=== PATIENT | female | born 1940 | race Caucasian/White ===

== ENCOUNTER → 2017-07-18 18:17 | Outpatient (CLI) | payer OTHER, SELFPAY ==
--- NOTE | 2017-07-18 18:22 | US_ITS ---
STUDY: ULTRASOUND OF THE FEMALE PELVIS - COMPLETE REASON FOR EXAM: Female, 77 years old. Post-menopausal bleeding LMP: TECHNIQUE: Transabdominal TECHNICAL QUALITY: Adequate. COMPARISON: None. FINDINGS: The uterus is anteverted and is in a midline position. The uterus measures 5.3 x 4 x 1.9 cm. Normal uterine cervix. The endometrium measures 2.9 mm in thickness, and is . There is no demonstrated endometrial mass. There is no demonstrated myometrial mass. I.U.D. - The patient does not have an I.U.D. The right ovary is non-visualized. The left ovary is non-visualized. There is no fluid in the cul-de-sac. US/Pelvic (Non ) IMPRESSION: Normal female pelvis. Ovaries are nonvisualized. Electronically Signed: Tres Rose MD at 22:58 EST , Service support ,
== END ==
PROVIDERS: Family Provider Internal Medicine; PCP Internal Medicine; Visit Provider Obstetrics & Gynecology
DX: N95.0 Postmenopausal bleeding (principal)
CPT/HCPCS: 76856

== ENCOUNTER → 2017-07-22 13:57 | Outpatient (CLI) | payer OTHER, SELFPAY ==
--- NOTE | 2017-07-22 | CYSPIN_PTH ---
PATIENT: GHANSHYAM RIVERA LOC: [facility] U#:[id number] AGE/SX: 85/F ROOM: RE07/22/[address]: Dr. Shira An MD : 1940 BED: DIS: SPEC #: [id number] RECD: 07/22/17 14:54 STATUS: JULES NELSON #: [id number] BASIL: 07/22/17 00:[address]: Shira An DEPT: CYTOLOGY RECD BY: Shai Villalobos Tissues: Urine Procedures: Pap Stain (control) Special Stain Group II Cytospin Fluid HEADER OPERATION: Not noted PRE-OP DIAGNOSIS: TISSUE SUBMITTED: Urine for cytology DIAGNOSIS CYTOLOGY Urine for cytology (cytospin): Negative for malignant cells. AM:ferny 07/23/17 COMMENT The specimen primarily contains squamous epithelial cells. Clinical correlation is suggested. CYTOLOGY STUDY Slides are reviewed. CYTOLOGY GROSS Received is 35 ml of light yellow fluid labeled with the patient's name and and designated per the requisition as urine. Submitted for cytology preparation. 07/22/17 TC:5 CPT: 69490
[2017-07-22 14:01] LABS: Bacteria 0 SEEN /hpf (None Seen); Cytology, Body Fluid / CSF SEE PATHOLOGY REPORT; Mucous, Urine 0 SEEN /hpf (<or=2+); Red Blood Cells-Urine 0 SEEN /hpf (0-5)
[2017-07-22 14:21] LABS: Color, Urine Yellow (Yellow); Glucose, Dipstick Normal (Normal); Ketone-Dipstick Negative (Negative); Leukocyte Esterase-Dipstick 100 /ul (Negative); Nitrite-Dipstick Negative (Negative); Occult Blood-Urine 25 /ul (Negative); Protein-Dipstick Negative (Negative); Specific Gravity, Urine 1.015 (1.002-1.030); Urine Bilirubin Dipstick Negative (Negative); Urine Clarity Clear (Clear); Urine Urobilinogen Normal (Normal)
[2017-07-22 14:34] LABS: Squamous Epithelial Cells - UA 0-5 SEEN /hpf (5-10); Transitional Epithelial - Ur 0-5 SEEN /hpf (0-5); White Blood Cells 0-5 SEEN /hpf (0-5)
== END ==
PROVIDERS: Visit Provider Obstetrics & Gynecology
DX: R30.0 Dysuria (principal)
CPT/HCPCS: 81001; 87086; 87088; 88108; 88313

== ENCOUNTER → 2017-10-24 15:02 | Outpatient (CLI) | payer OTHER, SELFPAY ==
[2017-10-27 10:02] LABS: Cancer Antigen 125 10.7 U/mL (0.0-38.1)
== END ==
PROVIDERS: Visit Provider Obstetrics & Gynecology
DX: N95.0 Postmenopausal bleeding (principal); N92.1 Excessive and frequent menstruation with irregular cycle
CPT/HCPCS: 36415; 86304

== ENCOUNTER 2017-11-21 06:59 | Day surgery (SDC) | payer OTHER, SELFPAY ==
[2017-11-17 11:54] LABS: Hematocrit 43.6 % (37-47); Hemoglobin 14.5 g/dl (12.0-15.0); Mean Corp Hgb Conc 33.3 g/gl (32-36); Mean Corpuscular Volume 93.4 fL (81-99); Mean Platelet Vol. 8.9 fl (6.2-12.0); Platelet Count 200 K/mm3 (150-450); RBC Distribution Width CV 13.4 % (11.6-14.6); RBC Distribution Width SD 45.4 fl (35.1-43.9); Red Blood Count 4.67 M/mm3 (4.2-5.4); White Blood Count 5.8 K/mm3 (4.4-11.0)
[2017-11-17 12:01] LABS: Scan Indicated on CBC? Y/N NO
[2017-11-17 12:19] LABS: Partial Thromboplast Time 28.1 Seconds (24.1-36.2)
[2017-11-21] VITALS (8 sets, daily range): BP systolic 90–129; BP diastolic 56–74; PULSE 49–63; RESP 16; TEMP 36.2–36.8; O2SAT 16–97; BMI 52.4
--- NOTE | 2017-11-21 08:25 | ECC_PTH ---
PATIENT: GHANSHYAM RIVERA LOC: [facility] [place] U#:[id number] AGE/SX: 77/F ROOM: RE11/21/[address]: Dr. Shira An MD : 1940 BED: DIS: 11/21/2017 SPEC #: [id number] RECD: 11/21/17 11:14 STATUS: JULES NELSON #: [id number] BASIL: 11/21/17 08:[address]: Shira An DEPT: SURGICAL PATHOLOGY RECD BY: Darrion Escoto ENTERED: 11/21/17 12:04 SP TYPE: [facility] DR: Dr. Vicki Hall DO Tissues: A - Endocervical B - Endometrium, NOS Procedures: Surgery Specimen Level IV HEADER OPERATION: Hysteroscopy, dilation and curettage PRE-OP DIAGNOSIS: Postmenopausal bleeding TISSUE SUBMITTED: A ? Endocervical curettage, B - Endometrium MICROSCOPIC DIAGNOSIS A. Endocervical curettage: Fragments of benign endocervical mucosa with acute and chronic inflammation. See comment. Strips of benign endometrial epithelium. B. Endometrium, dilation and curettage: Strips and superficial fragments of benign endometrial tissue, consistent with atrophic endometrium, blood and mucous. CATALINA:ferny 11/24/17 COMMENT A. A fragment of fibroconnective tissue is noted devoid of any overlying epithelium may represent fragment of benign inflamed polyp. MICROSCOPIC DESCRIPTION Slides are reviewed. GROSS DESCRIPTION A - Received in fixative is one container labeled with the patient's name and designated endocervical curettings. The specimen consists of multiple fragments of hemorrhagic soft tissue that in aggregate measure 2 x 0.5 x 0.1 cm. The specimen is totally submitted in one cassette. B - Received in fixative is one container labeled with the patient's name and designated endometrium. The specimen consists of multiple fragments of hemorrhagic soft tissue that in aggregate measure 1.5 x 0.8 x 0.1 cm. The specimen is totally submitted in one cassette. / CATALINA:ferny 11/21/17 TC:5 CPT: 93720 x2
--- NOTE | 2017-11-21 08:40 | PCM.OPRPT ---
Problem List (1) Postmenopause bleeding Status: Acute (2) Postmenopause bleeding Status: Acute Report of Operation Date of Procedure: 11/21/17 Pre-Operative Diagnosis: Postmenopausal bleeding Post-Operative Diagnosis: Postmenopausal bleeding Surgery/Procedure Performed:: Pelvic exam under anesthesia, pessary removal, fractional D&C and diagnostic hysteroscopy Description of Surgical Findings:: Removal of stone 3. Old brown discharge noted in the vagina and around 3. It appears that the pessary is irritated right side of the bladder near the graft. Endometrium Type of Anesthesia:: Local, MAC Anesthesiologist: Elmer Parnell Special Medications: 10 cc of 1% lidocaine Specimen's removed: Endocervical tissue and endometrial tissue Drains: none Estimated Blood Loss (mL): Minimal Fluids Replaced: lactated ringers Description of Procedure: Patient presented to the OR suite n.p.o. status. Patient underwent a MAC anesthetic and was found to be adequate. She was placed in the dorsal lithotomy position. Timeout had occurred. A weighted speculum was placed into the vagina and the anterior cervix was grasped and elevated 10 cc of 1% lidocaine was placed to the 4 quadrant survey. Uterus sounded approximately 6-7 cm anterior position. Kevorkian curette was used to remove endocervical tissue with pathological evaluation. Continue dilation of the cervix. Hysteroscope placed into the endometrial cavity where scant tissue was noted throughout. This was followed by sharp curettage of the endometrium. The endometrial tissue was then collected and sent away for evaluation. The replacement of the hysteroscope into the endometrial cavity revealed removal of all tissue very scant tissue to even remove upon initial. After removal of the hysteroscope sponge and instrument counts were correct ?2. The patient was awakened in stable condition and taken to recovery room Grafts/Implants Used: None - Complications None - Admit VTE Documentation VTE Present on Admission: No VTE Mechan Device Prophylaxis: SCD's VTE Pharm Prophylaxis ordered?: No Reason prophylaxis not ordered:: Treatment Not Indicated
--- NOTE | 2017-11-21 08:51 | PCM.DC.D&C ---
Discharge Diet: No Restrictions - increase water intake to 100 ounces daily x 72 hours Discharge Activity: Return to Normal Activity, May Shower, May Take a Tub Bath - in 2 weeks. Return to work on:: 11/24/17 May shower in (days): 0 - TODAY May resume sexual activity in: 1 week Weight Bearing Status: Full weight bearing Lifting Restrictions: none Additional Activity Instructions:: Ambulate often throughout the day x one week Call your doctor if your incision/area has: Sudden Increased Bleeding Call your doctor if you observe: Fever of 101 or Higher, Inability to urinate, Inability to have a bowel movement, Using more than one pad per hour Cleanse incision/area with: Soap & Water Allergies/Adverse Reactions: Allergies codeine Adverse Reaction (Verified 11/14/17 13:06) Nausea gluten Adverse Reaction (Verified 11/14/17 13:06) Upset Stomach Medications to take at Discharge Cholecalciferol (Vitamin D3) [Vitamin D3] 5,000 unit PO DAILY 11/14/17 Hydrocodone/Acetaminophen [Vicodin 5-300 mg Tablet] 1 - 2 tablet PO Q4H PRN PRN 11/14/17 Levothyroxine [Synthroid] 75 mcg PO DAILY 11/14/17 RX: Magnesium 250 mg PO DAILY 11/14/17 RX: Vitamin E 400 unit PO DAILY 11/14/17 Ubidecarenone [Coq10] 50 mg PO DAILY 11/14/17 Primary Care Physician: Vicki Hall DO [Primary Care Provider] - Please Follow Up With: Shira An MD When: 2 weeks postop
== END 2017-11-21 10:34 | disposition home or self-care (01) ==
PROVIDERS: Family Provider Internal Medicine; PCP Internal Medicine; Visit Provider Obstetrics & Gynecology
PROC: 0UDB8ZZ Extraction of Endometrium, Via Natural or Artificial Opening Endoscopic (ICD-10-PCS; CPT 58558; principal; 2017-11-21 08:15)
DX: N95.0 Postmenopausal bleeding (principal); E03.9 Hypothyroidism, unspecified; Z85.828 Personal history of other malignant neoplasm of skin; Z79.899 Other long term (current) drug therapy
CPT/HCPCS: 58558; 36415; 85027; 85610; 85730; 86850; 86900; 88305; J7120; J2405

== ENCOUNTER → 2017-12-02 12:31 | Outpatient (CLI) | payer OTHER, SELFPAY ==
--- NOTE | 2017-12-02 12:33 | BI_ITS ---
MAMMOGRAPHY - BILATERAL SCREENING REASON FOR EXAM: Female, 77 years old. Routine annual screening examination. PERTINENT HISTORY: Bilateral breast tenderness. TECHNIQUE: Digital bilateral breast ashwini (3D mammographic acquisition) in the CC and MLO projections. 2-D mediolateral oblique (MLO) and craniocaudad (CC) views of both breasts were obtained. CAD: Full Field Digital Mammography with Computer Added Detection was performed. COMPARISON: Comparison is made with prior examination dated June 01, 2014 and May 23, 2010. FINDINGS: Breast Composition: There are scattered areas of fibroglandular density. There are no dominant masses or suspicious calcifications. There is a 1.3 cm x 1.3 cm well-defined nodule in the retroareolar region of the left breast. This has increased in size slightly as compared to prior study. On prior ultrasound, this was demonstrated to be a cyst. A repeat sonogram of the left breast is recommended. Stable benign-appearing bilateral axillary lymph nodes. No other significant abnormalities are identified. BI/SCREENING MAMM (CAD), BILAT IMPRESSION: Slight increase in size of the retroareolar nodule of the left breast as described. Correlation with ultrasound is recommended. ASSESSMENT CATEGORY: BIRADS Category 0: Incomplete. Need additional imaging evaluation. A letter regarding these results will be sent to the patient by the facility within 30 days. Approximately 10% of breast cancers are not detected by mammography. A normal mammogram should not delay biopsy of a clinically suspicious abnormality. [id number] Electronically Signed: Wayne Gutierres MD at 14:47 EDT Tel [phone], Service support ,
== END ==
PROVIDERS: Family Provider Internal Medicine; PCP Internal Medicine; Visit Provider Internal Medicine
DX: Z12.31 Encounter for screening mammogram for malignant neoplasm of breast (principal)
CPT/HCPCS: 77063; 77067

== ENCOUNTER → 2017-12-09 10:23 | Outpatient (CLI) | payer OTHER, SELFPAY ==
--- NOTE | 2017-12-09 10:25 | US_ITS ---
STUDY: ULTRASOUND BREAST - LEFT REASON FOR EXAM: Female, 77 years old. Abnormal screening mammogram. TECHNIQUE: Axial and longitudinal images of the LEFT breast were performed with a high resolution ultrasound transducer. COMPARISON: Comparison is made with prior mammogram dated December 02, 2017 and prior ultrasound of the left breast dated June 07, 2014. FINDINGS: LEFT Breast: There is a 9 mm x 10 mm x 10 mm cyst at the 12:00 position of the breast at 1 cm from the nipple. US/Breast Limited Unilateral IMPRESSION: The mammographic abnormality corresponds to a 9 mm x 10 mm x 10 mm cyst. Routine mammographic follow-up is recommended. ASSESSMENT CATEGORY: BIRADS Category 2: Benign. A letter regarding these results will be sent to the patient by the facility within 30 days. Electronically Signed: Wayne Gutierres MD at 11:09 EDT Tel [phone], Service support ,
== END ==
PROVIDERS: Family Provider Internal Medicine; PCP Internal Medicine; Visit Provider Internal Medicine
DX: N63.0 Unspecified lump in unspecified breast (principal)
CPT/HCPCS: 76642

== ENCOUNTER → 2018-06-17 11:48 | Outpatient (CLI) | payer OTHER, SELFPAY ==
[2018-06-17 14:31] LABS: CRP 6.25 mg/L (0.0-3.0)
[2018-06-18 20:07] LABS: Endomysial Antibody IgA Negative (Negative)
[2018-06-19 09:30] LABS: Immunoglobulin A 233 mg/dL (64-422); t-Transglutaminase IgA <2 U/mL (0-3)
--- OUTSIDE RECORDS SUMMARY | 2018-08-22 07:51 | XMS RPT_ITS | Continuity of Care Document ---
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) Comments: s/p pessary and sees dr araujo Status: Active BMI 22.0-22.9, adult (Z68.22, V85.1) Status: Active Body mass index (BMI) 23.0-23.9, adult (Z68.23, V85.1) Status: Active Breath shortness (R06.02, 786.05) Comments: with activity-- i think with cough and wheeze could be having gerd and some sob with some reactive airways Status: Active 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 (E06.3, 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) Status: Active Cough (R05, 786.2) Status: Active Deliveries (Parity) Comments: 3 Status: Active Encounter for screening mammogram for breast cancer (Renamed from Encounter for screening mammogram for malignant neoplasm of breast) (Z12.31, V76.12) Status: Active Family history of AAA Status: Active Family history of diabetes mellitus (Z83.3, V18.0) Status: Active Fatigue (R53.83, 780.79) Status: Active GERD (gastroesophageal reflux disease) (K21.9, 530.81) Status: Active Hypercholesterolemia (E78.00, 272.0) Status: Active Hypothyroidism (E03.9, 244.9) Status: Active MALABSORPTION, INTESTINAL 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) Status: Active Neoplasm of uncertain behavior of skin (D48.5, 238.2) Comments: when shaved saw cyst material so pull out entire Status: Active Non-smoker (Z78.9, V49.89) Status: Active Osteoporosis (M81.0, 733.00) Comments: pt refuses to update dexapt refused meds in past Status: Active Other intervertebral disc degeneration, lumbar region (M51.36, 722.52) Status: Active Pregnancies () Comments: 3 Status: Active Pre-operative exam (Renamed from Preop examination) (Z01.818, V72.84) Comments: Dr Araujo Status: Active Prophylactic vaccination against Streptococcus pneumoniae (Z23, V03.82) Status: Active Rectocele, 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, 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) Status: Active Rosacea (L71.9, 695.3) Status: Active Sebaceous Cyst (L72.3, 706.2) Comments: side of neck Status: Active Sinusitis, acute (J01.90, 461.9) Comments: with some vertigo - pt wants to wait it out Status: Active Soft tissue mass (M79.9, 729.90) Status: Active Thyromegaly (E04.9, 240.9) Status: Active 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 Unspecified Diagnosis Status: Active 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, 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 Status: Active Urinary stream slowing (R39.198, 788.62) Status: Active Uterine prolapse (N81.4, 618.1) Status: Active Vertigo (R42, 780.4) Status: Active Vitamin D deficiency, unspecified (E55.9, 268.9) Status: Active Well woman exam with routine gynecological exam (Z01.419, V72.31) Status: Active Medications Name Dates Details CO Q 10, 10MG (Oral Capsule) 1 Capsule Capsule daily for 0 days Quantity: 30 {Capsule} Refills: 0 Ordered:26-Aug-2013 Earnestine Vasquez LPN Start : 31-May-2013 Active Cyclobenzaprine HCl 10 MG Oral Tablet 1 (one) Tablet tid for 0 days Quantity: 30 {Tablet} Refills: 0 Ordered:23-May-2017 Amber Hall DO, DO, Kathleen Start : 23-May-2017 Active Hydrocodone-Acetaminophen 5-325 MG Oral Tablet 1 -2 Tablet Q 4hr/PRN for 0 days Quantity: 30 {Tablet} Refills: 0 Ordered:12-Mar-2018 Amber Hall DO, DO, Kathleen Start : 12-Mar-2018 Active Comments:ddd M81.0 Levothyroxine Sodium 75 MCG Oral Tablet 1 (one) Tablet qd in the am on empty stomach for 0 days Quantity: 30 {Tablet} Refills: 3 Ordered:06-Nov-2017 Amber Hall DO, DO, Kathleen Start : 06-Nov-2017 Active Levothyroxine Sodium 75 MCG Oral Tablet 1 (one) Tablet qd in the am on empty stomach for 90 days Quantity: 90 {Tablet} Refills: 3 Ordered:06-Nov-2017 Amber Hall DO, DO, Kathleen Start : 06-Nov-2017 Active VITAMIN D3, 5000UNIT (Oral Tablet) 1 Tablet Tablet three times weekly for 0 days Quantity: 120 {Tablet} Refills: 0 Ordered:26-Aug-2013 Earnestine Vasquez LPN Start : 31-May-2013 Active BENADRYL, 25MG (Oral Tablet) 1 Tablet q8hrs prn for 0 days Quantity: 30 {Tablet} Refills: 0 Ordered:06-Jun-2014 Earnestine Vasquez LPN Start : 04-Dec-2012 End : 06-Jun-2014 Inactive CELEBREX, 200MG (Oral Capsule) 1 Capsule daily for 5 days Quantity: 15 {Capsule} Refills: 0 Ordered:04-Feb-2008 Orly Holland Start : 04-Feb-2008 End : 04-Feb-2008 Inactive CIPRO, 250MG (Oral Tablet) 1 Tablet bid for 3 days Quantity: 6 {Tablet} Refills: 0 Ordered:08-Feb-2008 Orly Holland Start : 08-Feb-2008 End : 25-Feb-2008 Inactive CLARITIN, 10MG (Oral Tablet) 1 Tablet daily for 7 days Quantity: 7 {Tablet} Refills: 0 Ordered:27-Apr-2013 Jacqui Joyce CNP Start : 04-Dec-2012 End : 11-Dec-2012 Inactive CRESTOR, 5MG (Oral Tablet) 1 Tablet daily for 0 days Quantity: 30 {Tablet} Refills: 6 Ordered:26-Aug-2013 Earnestine Vasquez LPN Start : 31-May-2013 End : 26-Aug-2013 Inactive FISH OIL, 1000MG (Oral Capsule) 1 (one) Capsule daily for 0 days Refills: 0 Ordered:04-Dec-2012 TUCKER Maravilla Start : 30-Aug-2008 End : 04-Dec-2012 Inactive LOVAZA, 1GM (Oral Capsule) 4 Capsule qd for 0 days Quantity: 360 {Capsule} Refills: 3 Ordered:04-Dec-2012 TUCKER Maravilla Start : 23-Jul-2011 End : 04-Dec-2012 Inactive NIASPAN, 1000MG (Oral Tablet Extended Release) 1 (one) Tablet ER daily for 0 days Quantity: 90 {Tablet_ER} Refills: 3 Ordered:19-Jul-2011 Earnestine Vasquez LPN Start : 14-Aug-2009 End : 19-Jul-2011 Inactive NIASPAN, 500MG (Oral Tablet Extended Release) 1 (one) Tablet ER Daily with a meal for 0 days Quantity: 90 {Tablet_ER} Refills: 3 Ordered:20-Nov-2011 Earnestine Vasquez LPN Start : 23-Jul-2011 End : 20-Nov-2011 Inactive NIASPAN, 750MG (Oral Tablet Extended Release) 1 (one) Tablet ER daily at hs for 0 days Quantity: 30 {Tablet_ER} Refills: 10 Ordered:19-Jul-2011 Earnestine Vasquez LPN Start : 30-Aug-2008 End : 19-Jul-2011 Inactive PEPCID, 20MG (Oral Tablet) 1 Tablet bid for 7 days Quantity: 14 {Tablet} Refills: 0 Ordered:27-Apr-2013 Maria Del Carmen PIÑA Melissa Start : 04-Dec-2012 End : 11-Dec-2012 Inactive PROAIR HFA, 108 (90 Base)MCG/ACT (Inhalation Aerosol Solution) 2 (two) Puff(s) tid prn for 0 days Quantity: 1 {Aerosol_Soln} Refills: 0 Ordered:06-Jun-2014 Earnestine Vasquez LPN Start : 04-Dec-2012 End : 06-Jun-2014 Inactive VITAMIN C, 500MG (Oral Tablet) 1 (one) Tablet daily for 0 days Refills: 0 Ordered:20-Nov-2011 Earnestine Vasquez LPN Start : 30-Aug-2008 End : 20-Nov-2011 Inactive VITAMIN D, 2000UNIT (Oral Tablet) 1 (one) Tablet daily for 0 days Quantity: 30 {Tablet} Refills: 0 Ordered:20-Nov-2011 Earnestine Vasquez LPN Start : 16-Nov-2009 End : 20-Nov-2011 Inactive ANTIVERT, 25MG (Oral Tablet) 1 (one) Tablet Q 8 hrPRN for 0 days Quantity: 30 {Tablet} Refills: 0 Ordered:12-Jun-2006 Orly Holland Start : 12-Jun-2006 End : 28-Jan-2008 Discontinued CITRACAL + D, [id number] (Oral Tablet) 1 (one) Tablet daily for 0 days Refills: 0 Ordered:16-Aug-2008 TUCKER Maravilla Start : 16-Aug-2008 End : 04-Dec-2012 Discontinued Comments:This order discontinued per [facility]. LEVOXYL, 50MCG (Oral Tablet) 1 qd (50 MCG) Start : 03-May-2013 End : 03-May-2013 Discontinued Comments:This order discontinued per [facility] LEVOXYL, 50MCG (Oral Tablet) 1 Tablet qd for 0 days Quantity: 90 {Tablet} Refills: 3 Ordered:03-May-2013 Earnestine Vasquez LPN Start : 03-May-2013 End : 03-May-2013 Discontinued Comments:This order discontinued per [facility]. TRIPLE ANTIBIOTIC, 5-400-5000 (External Ointment) Ointment bid for 0 days Refills: 0 Ordered:04-Feb-2008 Orly Holland Start : 04-Feb-2008 End : 25-Feb-2008 Discontinued VICODIN, 5-500MG (Oral Tablet) 1 (one) Tablet q4-6 hrs prn pain for 0 days Quantity: 30 {Tablet} Refills: 0 Ordered:11-Mar-2012 Amber Hall DO, DO, Kathleen Start : 11-Mar-2012 End : 09-Oct-2012 Discontinued Comments:This order discontinued per [facility] VITAMIN D, [id number] (Oral Capsule) 1 (one) Capsule twice weekly for 0 days Quantity: 24 {Capsule} Refills: 0 Ordered:16-Nov-2009 TUCKER Maravilla Start : 14-Jul-2009 End : 04-Dec-2012 Discontinued Comments:This order discontinued per [facility]. Allergies and Adverse Reactions Name Dates Details Codeine/Codeine Derivatives (Allergy) Status: Active Past Medical History Name Dates Details Abnormal EKG (R94.31, 794.31) Status: Inactive as of 18-Jun-2017 Actinic keratosis (L57.0, 702.0) Status: Inactive as of 04-Dec-2012 Benign paroxysmal positional vertigo (H81.10, 386.11) Comments: EXERCISE SHEET GIVEN Status: Inactive as of 16-Nov-2008 Bite, insect (W57.XXXA, 919.4) Status: Inactive as of 26-Aug-2013 Breast screening (Z12.39, V76.10) Status: Inactive as of 18-Jun-2017 CRP elevated (R79.82, 790.95) Status: Inactive as of 18-Jun-2017 Diarrhea (R19.7, 787.91) Status: Inactive as of 13-Aug-2012 Elevated blood-pressure reading without diagnosis of hypertension (R03.0, 796.2) Status: Resolved as of 20-Nov-2011 Encounter for immunization (Z23, V03.89) Status: Inactive as of 04-Dec-2012 Fall due to slipping on ice or snow, initial encounter (W00.9XXA, E885.9) Comments: fine no fx no bruiising noted but clinical evidence of soft tissue injury /soreness Status: Resolved as of 12-Nov-2017 Hematuria (R31.9, 599.70) Status: Resolved as of 28-Jul-2014 Low back pain (M54.5, 724.2) Status: Inactive as of 13-Aug-2012 Need for prophylactic vaccination and inoculation against influenza (Z23, V04.81) Status: Inactive as of 04-Dec-2012 Shoulder joint pain, unspecified laterality (719.41) Comments: resolving Status: Inactive as of 21-Nov-2008 Unspecified Diagnosis Status: Inactive as of 04-Dec-2012 Urinary frequency (R35.0, 788.41) Status: Inactive as of 16-Nov-2008 Vaginal discharge, bloody (N89.8, 623.8) Status: Inactive as of 18-Jun-2017 Wheeze (R06.2, 786.07) Comments: from gerd-- will follow behavior chg 1st prior to any more std proc supplements or rx to treat gerd Status: Inactive as of 28-Nov-2014 Procedures Procedure Dates Details oral sx Completed Comments: 07/19/13 Date Value Details 09-Dec-2017 Breast Limited Unilateral Result: Comments: See Note; NOTES: [facility] Imaging Services [address] [place] [address] Breast Limited Unilateral MR#: [id number] Acct: [id number] Name: CRIS SEAY Rep #: [id number] : 1940 F 77 From: Wayne Juarez MD PCP: Vicki Hall DO Status: REG CLI Study: Breast Limited Unilateral Date of Exam: 12/09/17 Exam# [id number] Ordering Dr: Vicki Hall DO STUDY: ULTRASOUND BREAST - LEFT REASON FOR EXAM: Female, 77 years old. Abnormal screening mammogram. TECHNIQUE: Axial and longitudinal images of the LEFT breast were performed with a high resolution u ltrasound transducer. COMPARISON: Comparison is made with prior mammogram dated December 02, 2017 and prior ultrasound of the left breast dated June 07, 2014. FINDINGS : LEFT Breast: There is a 9 mm x 10 mm x 10 mm cyst at the 12:00 position of the breast at 1 cm from the nipple. US/Breast Limited Unilateral IM PRESSION: The mammographic abnormality corresponds to a 9 mm x 10 mm x 10 mm cyst. Routine mammographic follow-up is recommended. ASSESSMENT CATEGORY: BIRADS Categor y 2: Benign. A letter regarding these results will be sent to the patient by the facility within 30 days. Electronically Signed: Wayne Juarez MD at 11:09 EDT Tel [phone], Service s upport , CC: Vicki Hall DO Aerographer: Signed 02-Dec-2017 SCREENING MAMM (CAD), BILAT Result: Comments: See Note; NOTES: [facility] Imaging Services [address] [place] [address] SCREENING MAMM (CAD), BILAT MR#: [id number] Acct: [id number] Name: CRIS SEAY Rep #: [id number] : 1940 F 77 From: Wayne Juarez MD PCP: Vicki Hall DO Status: REG CLI Study: SCREENING MAMM (CAD), BILAT Date of Exam: 12/02/17 Exam# [id number] Ordering Dr: Vicki Hall MAMMOGRAPHY - BILATERAL SCREENING REASON FOR EXAM: Female, 77 years old. Routine annual screening examination. PERTINENT HISTORY: Bilateral breast tenderness. TECHNIQUE: Digital bilateral breast ashwini (3D mammographic acquisition) in the CC and MLO projections. 2-D mediolateral oblique (MLO) and craniocaudad (CC) views of both breasts were obtained. CAD: Full Field Digital Mammography with Compu ter Added Detection was performed. COMPARISON: Comparison is made with prior examination dated June 01, 2014 and May 23, 2010. FINDINGS: Breast Composition : There are scattered areas of fibroglandular density. There are no dominant masses or suspicious calcifications. There is a 1.3 cm x 1.3 cm well-defined nodule in the retroareolar region of the left b reast. This has increased in size slightly as compared to prior study. On prior ultrasound, this was demonstrated to be a cyst. A repeat sonogram of the left breast is recommended. Stable benign-appeari ng bilateral axillary lymph nodes. No other significant abnormalities are identified. BI/SCREENING MAMM (CAD), BILAT IMPRESSION: Slight increase in size of the retroareolar nodule of the left breast as described. Correlation with ultrasound is recommended. ASSESSMENT CATEGORY: BIRADS Category 0: Incomplete. Need additional imaging evaluation. A letter regarding these results will be sent to the patient by the facility within 30 days. Approximately 10% of breast cancers are not detected by mammography. A normal mammogram should not delay biopsy of a clinically suspicious abnormality. [id number] Electronically Signed: Wayne Juarez MD at 14:47 EDT Tel [phone], Service support [phone], CC: Vicki Hall DO Aerographer: Signed 21-Nov-2017 Discharge Instruction Result: Comments: See Note; NOTES: [facility] Medical Records Department [address] [place] [address] Instructions for Home/Discharge Instructions 11/21/17 0851 MR#: [id number] Acct: [id number] Name: CRIS SEAY Rep #: [id number] : 1940 77 From: Shira Araujo MD PCP: Vicki Hall DO Status: REG [facility] [place] Discharge Diet: No Restrictions - increase water intake to 100 ounces lakisha ly x 72 hours Discharge Activity: Return to Normal Activity, May Shower, May Take a Tub Bath - in 2 weeks. Return to work on:: 11/24/17 May shower in (days): 0 - TODAY May resume sexual activity in: 1 w [place] Weight Bearing Status: Full weight bearing Lifting Restrictions: none Additional Activity Instructions:: Ambulate often throughout the day x one week Call your doctor if your incision/area has: Sudd en Increased Bleeding Call your doctor if you observe: Fever of 101 or Higher, Inability to urinate, Inability to have a bowel movement, Using more than one pad per hour Cleanse incision/area with: Soap AND Water Allergies/Adverse Reactions: Allergies codeine Adverse Reaction (Verified 11/14/17 13:06) Nausea gluten Adverse Reaction (Verified 11/14/17 13:06) Upset Stomach Medications to take at [facility] Cholecalciferol (Vitamin D3) [Vitamin D3] 5,000 unit PO DAILY 11/14/17 Hydrocodone/Acetaminophen [Vicodin 5-300 mg Tablet] 1 - 2 tablet PO Q4H PRN PRN 11/14/17 Levothyroxine [Synthroid] 75 mcg PO DAILY 11/14/17 RX: Magnesium 250 mg PO DAILY 11/14/17 RX: Vitamin E 400 unit PO DAILY 11/14/17 Ubidecarenone [Coq10] 50 mg PO DAILY 11/14/17 Primary Care Physician: Vicki Hall DO [Primary Care Provider] - Please Follow Up With: Shira Araujo MD When: 2 weeks postop 11/21/17 0856 <Electronically signed by Shira Araujo MD> Date Shira Araujo MD CC: Vicki Hall DO 21-Nov-2017 Operative Report Result: Comments: See Note; NOTES: [facility] Medical Records Department [facility] [place] [address] Operative Report 11/21/17 0840 MR#: [id number] Acct: [id number] Name: CRIS SEAY Rep #: [id number] : 1940 77 From: Shira Araujo MD PCP: Vicki Hall DO Status: [facility] Y Location: [facility] [place] Problem List (1) Postmenopause bleeding Status: Acute (2) Postmenopause bleeding St atus: Acute Report of Operation Date of Procedure: 11/21/17 Pre-Operative Diagnosis: Postmenopausal bleeding Post-Operative Diagnosis: Postmenopausal bleeding Surgery/Procedure Performed:: Pelvic exam under anesthesia, pessary removal, fractional D AND C and diagnostic hysteroscopy Description of Surgical Findings:: Removal of stone 3. Old brown discharge noted in the vagina and around 3. It appears that the pessary is irritated right side of the bladder near the graft. Endometrium Type of Anesthesia:: Local, MAC Anesthesiologist: Elmer Parnell Special Medications: 10 cc of 1% lidocaine Specimen' s removed: Endocervical tissue and endometrial tissue Drains: none Estimated Blood Loss (mL): Minimal Fluids Replaced: lactated ringers Description of Procedure: Patient presented to the OR suite n.p.o. status. Patient underwent a MAC anesthetic and was found to be adequate. She was placed in the dorsal lithotomy position. Timeout had occurred. A weighted speculum was placed into the vagina and the an terior cervix was grasped and elevated 10 cc of 1% lidocaine was placed to the 4 quadrant survey. Uterus sounded approximately 6-7 cm anterior position. Kevorkian curette was used to remove endocervical tissue with pathological evaluation. Continue dilation of the cervix. Hysteroscope placed into the endometrial cavity where scant tissue was noted throughout. This was followed by sharp curettage of th e endometrium. The endometrial tissue was then collected and sent away for evaluation. The replacement of the hysteroscope into the endometrial cavity revealed removal of all tissue very scant tissue to even remove upon initial. After removal of the hysteroscope sponge and instrument counts were correct 2. The patient was awakened in stable condition and taken to recovery room Grafts/Implants Used: None - Complications None - Admit VTE Documentation VTE Present on Admission: No VTE Mechan Device Prophylaxis: SCD's VTE Pharm Prophylaxis ordered?: No Reason prophylaxis not ordered:: Treatme nt Not Indicated 11/21/17 0851 <Electronically signed by Shira Araujo MD> Date Shira Araujo MD CC: Shira Araujo MD; Vicki Hall DO Signed 18-Jul-2017 Pelvic (Non ) Result: Comments: See Note; NOTES: [facility] Imaging Services [address] [place] [address] Pelvic (Non ) MR#: [id number] Acct: [id number] Name: CRIS SEAY Rep #: [id number] : 1940 F 77 From: Tres Rose MD PCP: Vicki Hall DO Status: REG CLI Study: Pelvic (Non ) Date of Exam: 07/18/17 Exam# [id number] Ordering Dr: Shira Araujo MD STUDY: ULTRASOUN D OF THE FEMALE PELVIS - COMPLETE REASON FOR EXAM: Female, 77 years old. Post- menopausal bleeding LMP: TECHNIQUE: Transabdominal TECHNICAL QUALITY: Adequate. COMPARISON: None. FINDINGS: The uterus is anteverted and is in a midline position. The uterus measures 5.3 x 4 x 1.9 cm. Normal uterine cervix. The endometrium measures 2.9 mm in thickness, and is . There is no demonstrated endometrial mass. There is no demonstrated myometrial mass. I.U.D. - The patient does not have an I.U.D. The right ovary is non- visualized. The left ovary is non-visualized. There is no fluid in the cul-de-sac. US/Pelvic (Non ) IMPRESSION: Normal female pelvis. Ovaries are nonvisualized. Electronically Signed: Se gabriel Rose MD at 22:58 EST , Service support , CC: Shira Araujo MD; Vicki Hall DO Aerographer: Signed 28-May-2017 Abdomen Limited Result: Comments: See Note; NOTES: [facility] Imaging Services [address] [place] [address] Abdomen Limited MR#: [id number] Acct: [id number] Name: CRIS SEAY Rep #: [id number] : 1940 F 77 From: Wally Easton MD PCP: Vicki Hall DO Status: REG CLI Study: Abdomen Limited Date of Exam: 05/28/17 Exam# [id number] Ordering Dr: Vicki Hall DO STUDY: ABDOMINAL ULTRASOUND -left lateral abdomen REASON FOR VISIT: Female, 77 years old. Palpable lump TECHNIQUE: Ultrasound evaluation of the right upper quadrant was performed with real-time and static garcia-scale imaging. T ECHNICAL QUALITY: Adequate. COMPARISON: None. FINDINGS: Ultrasound evaluation of the subcutaneous tissue, in the area of concern, shows a well-defined isoechoic cat bcutaneous nodule measuring 1.9 x 3.3 x 0.8 cm. This appears to be a lipoma. It is well-defined, there is no vascularity or hyperemia to suspect inflammation. No suspicious cystic mass or architectural distortion. US/Abdomen Limited IMPRESSION: Likely subcutaneous lipoma corresponding to the palpable abnormality. No suspicious sonographic findi ngs Electronically Signed: Osorio Easton MD at 8:47 EST , Service support , CC: Vicki Hall DO Aerographer: Signed 07-Aug-2016 Transvaginal Non- Result: Comments: See Note; NOTES: [facility] Imaging Services [address] [place] [address] Verdana 4d Transvaginal Non- MR#: [id number] Acct: [id number] Name: CRIS SEAY Roni Lynn ep #: [id number] : 1940 F 76 From: Camryn Robison MD PCP: Vicki Hall DO Status: REG CLI Study: Transvaginal Non- Date of Exam: 08/07/16 Exam# [id number] Ordering Dr: Vicki Hall DO STUDY: ULTRASOUND TRANSVAGINAL CLINICAL: Female, 76 years old. bloody discharge with uterine prolapse TECHNIQUE: Transabdominal and Transvaginal COMPARISON: None. FINDINGS: Normal uterine size measuring 3.8 x 2.5 x 1.6 cm in maximal craniocaudal dimension. There are no myometrial masses. Normal endometrial thickness measuring 2.3 mm. There are no endome trial masses, and there is no fluid in the endometrial cavity. Normal uterine cervix. The right ovary is not visualized. Normal left ovary, measuring 1.8 x 1.1 x 1.0 cm. There are multiple follicles without a dominant cyst. There is no free fluid in the pelvis. US/Transvaginal Non- IMPRESSION: There is no abnormal mass in the uterus. Electronically Signed: Camryn Robison MD at 11:00 EST Tel , Service support [phone], CC: Shira Araujo MD; Vicki Hall DO Aerographer: Signed 24-May-2015 EKG (16195) Comments: sinus tiffanie Result: [MEASUREMENTS ANALYSIS] Date of Test: 05/24/2015 11:36:14; Heart Rate: 55; VT Interval: 160; QRS: 90; QT Interval: 446; Corrected QT Interval (QTc): 438; P Wave Reader: 47; QRS Wave Reader: 30; T Wave Reader: 52; Blood Pressure: 115/60 [ECG DIAGNOSTIC STATEMENTS] Date of Test: 05/24/2015 11:36:14; Summary: Sinus Bradycardia WITHIN NORMAL LIMITS 07-Jun-2014 Breast Limited Unilateral Result: Comments: See Note; NOTES: [facility] Imaging Services [address] [place] [address] Ultrasound Report MR#: [id number] Acct: [id number] Name: CRIS SEAY Rep #: [id number] : 1940 F 74 From: Wayne Juarez MD PCP: Vicki Hall DO Status: REG CLI Study: Breast Limited Unilateral Date of Exam: 06/07/14 Exam# [id number] Ordering Dr: Vicki Hall DO STUDY: ULTRASOUND BREAST(S) - LEFT REASON FOR EXAM: Female, 74 years old. Abnormal screening mammogram. TECHNIQUE: Axial and longitudinal images of the LEFT breast were performed with a high re solution ultrasound transducer. COMPARISON: Comparison is made with prior mammogram dated June 01, 2014 and prior breast ultrasound dated May 29, 2010. FINDINGS: LEFT BREAST: There is a 10 mm x 8 mm x 7 mm cyst at the 12:00 position of the breast at 3 cm from the nipple. This corresponds to the mammographic findings. This has increased in size si nce prior study. IMPRESSION: The nodular density represents a cyst. This has increased in size as compared to prior examination. ____ ASSESSMENT CATEGORY: BIRADS Category 2: Benign. A letter regarding these results will be sent to the patient by the facility within 30 days. Electronically Signed: Wayne Juarez MD 16/06/05 at 11:38 EST Tel [phone], Service support [phone], CC: Vicki Hall DO Aerographer: Signed 01-Jun-2014 Bilat Scrijeoma Digital AND CAD Result: Comments: See Note; NOTES: [facility] Imaging Services [address] [place] [address] Breast Imaging Report MR#: [id number] Acct: [id number] Name: CRIS SEAY Rep #: [id number] : 1940 F 74 From: Wayne Juarez MD PCP: Vicki Hall DO Status: [facility] CLI Study: Bilat Scrn Digital AND CAD Date of Exam: 06/01/14 Exam# [id number] Ordering Dr: Mirela Hall DO MAMMOGRAPHY - BILATERAL SCREENING REASON FOR EXAM: Female, 74 years old. Routine annual screening examination. PERTINENT HISTORY: Non- contributory. TECHNIQUE: Digital examination. Mediol ateral oblique (MLO) and craniocaudad (CC) views of both breasts were obtained. CAD: CAD was performed on this study. COMPARISON: Comparison is made with prior study dated May 23, 2010. FINDINGS: Breast Composition: The breasts are almost entirely fatty. There is a 1 cm well-defined nodular density in the superior retroareolar region of the left coc[address] st. This has increased in size. This was demonstrated to be a cyst on prior ultrasound. Sonographic correlation is recommended. No other significant abnormalities are identified. IMPRESSION: Increasing well-defined non-density in the left breast as described. Correlation with ultrasound is recommended. ASSESSMENT CATEG ORY: BIRADS Category 0: Incomplete. Need additional imaging evaluation. A letter regarding these results will be sent to the patient by the facility within 30 days. Approximately 10% of breast canc ers are not detected by mammography. A normal mammogram should not delay biopsy of a clinically suspicious abnormality. Electronically Signed: Wayne Juarez MD at 10:14 EST Tel [phone], Service support [phone], CC: Vicki Hall DO Aerographer: Signed 04-Apr-2014 Spirometry ([id number]) Comments: poor techin overall ok Result: [Preliminary Information] Sensor Calibration Date: 02/15/2014; Sensor SN: [id number]; Pressure: 760; Temperature: 20.1088164343209; Predicteds Used: Crapo [Pre-Bronchodilator] FVC: 2.91662104107141; FEV (0.5 secs): 1.88409804648265; FEV (1.0 sec): 2.33327783936589; FEV (3.0 secs): 2.75938472378463; FEV (6.0 secs): 0.939598956026496; FEV (1.0 sec) / FVC: 91.4521841716759; FEV (3.0 secs) / FVC: 97.378595 5255223; FEV (1.0 sec) / FEV (6.0 secs): 448.714776559257; FEF (25-75%): 3.3266958180369; FEF (75-85%): 1.79199748706021; PEF: 4.68307500465338; FEF (25%): 5.94899678479615; FEF (75%): 2.10121679332643; FEF (200-1200): 4.36074568933363; EXP TIME: 4.86885419320040; Best FVC: 2.48242312490534; Best FEV (1.0 sec): 2.81554783933901; V ext.: 0.218169747388603; FIVC: 2.75525587572312; FIV (0.5 sec): 0.86188 5181382860; FEV (0.5 secs) / FIV (0.5 secs): 341.466087183038; FIF (50%): 1.66162024640992; FEF (50%) / FIF (50%): 236.873490154712; MVV: 0; MTV: 0; RR: 0; MVV Time: 0; VC: 0; ERV: 0; JANEE: 0; TV: 0; AT: 0; AT%: 0 [Post-Bronchodilator] FVC: 0; FEV (0.5 secs): 0; FEV (1.0 sec): 0; FEV (3.0 secs): 0; FEV (6.0 secs): 0; FEV (1.0 sec) / FVC: 0; FEV (3.0 secs) / FVC: 0; FEV (1.0 sec) / FEV (6.0 secs): 0; FE F (25-75%): 0; FEF (75-85%): 0; PEF: 0; FEF (25%): 0; FEF (75%): 0; FEF (200-1200): 0; EXP TIME: 0; Best FVC: 0; Best FEV (1.0 sec): 0; V ext.: 0; FIVC: 0; FIV (0.5 sec): 0; FEV (0.5 secs) / FIV (0.5 se cs): 0; FIF (50%): 0; FEF (50%) / FIF (50%): 0; MVV: 0; MTV: 0; RR: 0; MVV Time: 0; VC: 0; ERV: 0; JANEE: 0; TV: 0; AT: 0; AT%: 0 [Predicted Values] FVC: 2.45935157705523; FEV (0.5 secs): 1.32302105373849 ; FEV (1.0 sec): 2.93494122058469; FEV (3.0 secs): 2.73652470000318; FEV (6.0 secs): 0; FEV (1.0 sec) / FVC: 75.4916571006174; FEV (3.0 secs) / FVC: 91.3535823773075; FEV (1.0 sec) / FEV (6.0 secs): 0; FEF (25-75%): 1.47109499460427; FEF (75-85%): 0; PEF: 5.57032481898424; FEF (25%): 4.49662597726622; FEF (75%): 0.651; FEF (200-1200): 0; EXP TIME: 0; Best FVC: 2.84510272367113; Best FEV (1.0 sec): 2.0 3047150364111; V ext.: 0; FIVC: 2.36347339825836; FIV (0.5 sec): 0; FEV (0.5 secs) / FIV (0.5 secs): 0; FIF (50%): 0; FEF (50%) / FIF (50%): 0; MVV: 82.9890542461405; MTV: 0; RR: 0; MVV Time: 0; VC: 2.7 8023865306117; ERV: 0; JANEE: 0; TV: 0; AT: 0; AT%: 0 [Spirometry Diagnostic Statements] Date of Test: 04/04/2014 08:25:30; Summary: Normal spirometry. Immunization Name Dates Details Influenza (3 years and up) on: 03-Jul-2006 Pneumococcal (2 years and up) on: 17-May-2008 Comments: Lot #[id number]/07/09Site-left deltoidDose0.5mlgiven by Artie Holland LPN Family History Unknown Family Member Name Dates Details Family Members In General Comments: ETOH, Grandmother spinal cancer, prostate CA, Heart/Lung diseaes, HBP, high cholesterol and thyroid disease Status: Active Father Comments: [place], S/P CABG Status: Active Mother Comments: Ruptured aortic aneurysm Status: Active Social History Name Dates Details Caffeine Use Comments: 3 QD Status: Active No Drug Use Status: Active Non Drinker/No Alcohol Use Status: Active Non Smoker/No Tobacco Use Status: Active Tobacco use: Never smoker. Status: Active Smoking Status Name Dates Details Never smoker Vital Signs Date Test Result Details :41 Pulse 67 /min Comments: Pattern: Regular Respiration Rate 18 /min Comments: Pattern: Unlabored O2 SAT 97 % Comments: Room air BP Systolic 130 mm[Hg] Comments: Patient Position: Sitting; Cuff Location: Left Arm; Cuff Size: Standard BP Diastolic 82 mm[Hg] Comments: Patient Position: Sitting; Cuff Location: Left Arm; Cuff Size: Standard Weight 133.5 lb Height 63.25 in Body Mass Index Calculated 23.46 kg/m2 Body Surface Area Calculated 1.63 m2 :39 Pulse 96 /min Comments: Pattern: Regular Respiration Rate 18 /min Comments: Pattern: Unlabored O2 SAT 96 % Comments: Room air BP Systolic 120 mm[Hg] Comments: Patient Position: Sitting; Cuff Location: Left Arm; Cuff Size: Standard BP Diastolic 62 mm[Hg] Comments: Patient Position: Sitting; Cuff Location: Left Arm; Cuff Size: Standard Weight 130.25 lb Height 63.25 in Body Mass Index Calculated 22.89 kg/m2 Body Surface Area Calculated 1.62 m2 :08 Pulse 62 /min Comments: Pattern: Regular Respiration Rate 18 /min Comments: Pattern: Unlabored O2 SAT 97 % Comments: Room air BP Systolic 122 mm[Hg] Comments: Patient Position: Sitting; Cuff Location: Left Arm; Cuff Size: Standard BP Diastolic 72 mm[Hg] Comments: Patient Position: Sitting; Cuff Location: Left Arm; Cuff Size: Standard Weight 127 lb Height 63.25 in Body Mass Index Calculated 22.32 kg/m2 Body Surface Area Calculated 1.6 m2 [id number]:52 Pulse 97 /min Comments: Pattern: Regular Respiration Rate 18 /min Comments: Pattern: Unlabored O2 SAT 96 % Comments: Room air BP Systolic 138 mm[Hg] Comments: Patient Position: Sitting; Cuff Location: Left Arm; Cuff Size: Large BP Diastolic 80 mm[Hg] Comments: Patient Position: Sitting; Cuff Location: Left Arm; Cuff Size: Large Weight 133.125 lb Height 63.25 in Body Mass Index Calculated 23.4 kg/m2 Body Surface Area Calculated 1.63 m2 :04 Temperature 97 f Comments: Method: Oral Pulse 55 /min Comments: Pattern: Regular Respiration Rate 16 /min Comments: Pattern: Unlabored O2 SAT 97 % Comments: Room air BP Systolic 115 mm[Hg] Comments: Patient Position: Sitting; Cuff Location: Left Arm; Cuff Size: Standard BP Diastolic 60 mm[Hg] Comments: Patient Position: Sitting; Cuff Location: Left Arm; Cuff Size: Standard Weight 126.5 lb Height 63.25 in Body Mass Index Calculated 22.23 kg/m2 Body Surface Area Calculated 1.6 m2 :29 Pulse 72 /min Comments: Pattern: Regular Respiration Rate 18 /min Comments: Pattern: Unlabored O2 SAT 92 % Comments: Room air BP Systolic 120 mm[Hg] Comments: Patient Position: Sitting; Cuff Location: Left Arm; Cuff Size: Large BP Diastolic 60 mm[Hg] Comments: Patient Position: Sitting; Cuff Location: Left Arm; Cuff Size: Large Weight 129.5 lb Height 63.25 in Body Mass Index Calculated 22.76 kg/m2 Body Surface Area Calculated 1.61 m2 :47 Pulse 63 /min Comments: Pattern: Regular Respiration Rate 18 /min Comments: Pattern: Unlabored O2 SAT 95 % Comments: Room air BP Systolic 128 mm[Hg] Comments: Patient Position: Sitting; Cuff Location: Left Arm; Cuff Size: Standard BP Diastolic 70 mm[Hg] Comments: Patient Position: Sitting; Cuff Location: Left Arm; Cuff Size: Standard Weight 129.5 lb Height 63.25 in Body Mass Index Calculated 22.76 kg/m2 Body Surface Area Calculated 1.61 m2 :48 Pulse 72 /min Comments: Pattern: Regular Respiration Rate 18 /min Comments: Pattern: Unlabored O2 SAT 96 % Comments: Room air BP Systolic 136 mm[Hg] Comments: Patient Position: Sitting; Cuff Location: Left Arm; Cuff Size: Large BP Diastolic 88 mm[Hg] Comments: Patient Position: Sitting; Cuff Location: Left Arm; Cuff Size: Large Weight 134.25 lb Height 63.25 in Body Mass Index Calculated 23.59 kg/m2 Body Surface Area Calculated 1.64 m2 :59 Pulse 69 /min Comments: Pattern: Regular Respiration Rate 18 /min Comments: Pattern: Unlabored O2 SAT 97 % Comments: Room air BP Systolic 120 mm[Hg] Comments: Patient Position: Sitting; Cuff Location: Left Arm; Cuff Size: Large BP Diastolic 80 mm[Hg] Comments: Patient Position: Sitting; Cuff Location: Left Arm; Cuff Size: Large Weight 134.25 lb Height 63.25 in Body Mass Index Calculated 23.59 kg/m2 Body Surface Area Calculated 1.64 m2 :21 Pulse 93 /min Comments: Pattern: Regular Respiration Rate 18 /min Comments: Pattern: Unlabored O2 SAT 98 % Comments: Room air BP Systolic 118 mm[Hg] Comments: Patient Position: Sitting; Cuff Location: Left Arm; Cuff Size: Large BP Diastolic 62 mm[Hg] Comments: Patient Position: Sitting; Cuff Location: Left Arm; Cuff Size: Large Weight 131.25 lb Height 63.25 in Body Mass Index Calculated 23.07 kg/m2 Body Surface Area Calculated 1.62 m2 :16 Temperature 97.5 f Comments: Method: Temporal Pulse 66 /min Comments: Pattern: Regular Respiration Rate 15 /min Comments: Pattern: Unlabored O2 SAT 98 % Comments: Room air BP Systolic 118 mm[Hg] Comments: Patient Position: Sitting; Cuff Location: Left Arm; Cuff Size: Standard BP Diastolic 72 mm[Hg] Comments: Patient Position: Sitting; Cuff Location: Left Arm; Cuff Size: Standard Weight 128.0625 lb Height 63.25 in Body Mass Index Calculated 22.51 kg/m2 Body Surface Area Calculated 1.6 m2 :58 Weight 129.0625 lb Height 63.25 in Body Mass Index Calculated 22.68 kg/m2 Body Surface Area Calculated 1.61 m2 :34 Pulse 76 /min Comments: Pattern: Regular Respiration Rate 18 /min Comments: Pattern: Unlabored O2 SAT 96 % Comments: Room air BP Systolic 118 mm[Hg] Comments: Patient Position: Sitting; Cuff Location: Left Arm; Cuff Size: Standard BP Diastolic 62 mm[Hg] Comments: Patient Position: Sitting; Cuff Location: Left Arm; Cuff Size: Standard Weight 129.0625 lb Height 63.25 in Body Mass Index Calculated 22.68 kg/m2 Body Surface Area Calculated 1.61 m2 :39 Pulse 71 /min Comments: Pattern: Regular Respiration Rate 20 /min Comments: Pattern: Unlabored O2 SAT 98 % Comments: Room air BP Systolic 138 mm[Hg] Comments: Patient Position: Sitting; Cuff Location: Left Arm; Cuff Size: Large BP Diastolic 72 mm[Hg] Comments: Patient Position: Sitting; Cuff Location: Left Arm; Cuff Size: Large Weight 130 lb Height 63.25 in Body Mass Index Calculated 22.85 kg/m2 Body Surface Area Calculated 1.62 m2 :35 Temperature 97.5 f Comments: Method: Oral Pulse 70 /min Comments: Pattern: Regular Respiration Rate 16 /min O2 SAT 96 % Comments: Room air BP Systolic 112 mm[Hg] Comments: Patient Position: Sitting; Cuff Location: Left Arm; Cuff Size: Standard BP Diastolic 70 mm[Hg] Comments: Patient Position: Sitting; Cuff Location: Left Arm; Cuff Size: Standard Weight 132 lb Height 63.25 in Body Mass Index Calculated 23.2 kg/m2 Body Surface Area Calculated 1.63 m2 :04 Temperature 98.7 f Comments: Method: Oral Pulse 72 /min Comments: Pattern: Regular Respiration Rate 16 /min O2 SAT 97 % Comments: Room air BP Systolic 110 mm[Hg] Comments: Patient Position: Sitting; Cuff Location: Left Arm; Cuff Size: Standard BP Diastolic 68 mm[Hg] Comments: Patient Position: Sitting; Cuff Location: Left Arm; Cuff Size: Standard Weight 132 lb Height 63.25 in Body Mass Index Calculated 23.2 kg/m2 Body Surface Area Calculated 1.63 m2 :21 Temperature 97.9 f Comments: Method: Oral Pulse 72 /min Comments: Pattern: Regular Respiration Rate 18 /min Comments: Pattern: Unlabored O2 SAT 98 % Comments: Room air BP Systolic 124 mm[Hg] Comments: Patient Position: Sitting; Cuff Location: Left Arm; Cuff Size: Standard BP Diastolic 78 mm[Hg] Comments: Patient Position: Sitting; Cuff Location: Left Arm; Cuff Size: Standard Weight 132 lb Height 63.25 in Body Mass Index Calculated 23.2 kg/m2 Body Surface Area Calculated 1.63 m2 :15 Temperature 96.9 f Comments: Method: Oral Pulse 76 /min Comments: Pattern: Regular Respiration Rate 20 /min Comments: Pattern: Unlabored BP Systolic 122 mm[Hg] Comments: Patient Position: Sitting; Cuff Location: Left Arm; Cuff Size: Large BP Diastolic 82 mm[Hg] Comments: Patient Position: Sitting; Cuff Location: Left Arm; Cuff Size: Large Weight 136.4375 lb Height 63.25 in Body Mass Index Calculated 23.98 kg/m2 Body Surface Area Calculated 1.65 m2 :17 Temperature 98 f Comments: Method: Oral Pulse 64 /min Comments: Pattern: Regular Respiration Rate 18 /min Comments: Pattern: Unlabored BP Systolic 128 mm[Hg] Comments: Patient Position: Sitting; Cuff Location: Left Arm; Cuff Size: Standard BP Diastolic 80 mm[Hg] Comments: Patient Position: Sitting; Cuff Location: Left Arm; Cuff Size: Standard Weight 136.4375 lb Height 63.25 in Body Mass Index Calculated 23.98 kg/m2 Body Surface Area Calculated 1.65 m2 :03 Temperature 97.3 f Comments: Method: Oral Pulse 64 /min Comments: Pattern: Regular Respiration Rate 18 /min Comments: Pattern: Unlabored BP Systolic 140 mm[Hg] Comments: Patient Position: Sitting; Cuff Location: Left Arm; Cuff Size: Standard BP Diastolic 80 mm[Hg] Comments: Patient Position: Sitting; Cuff Location: Left Arm; Cuff Size: Standard Weight 136.4375 lb Height 63.25 in Body Mass Index Calculated 23.98 kg/m2 Body Surface Area Calculated 1.65 m2 :42 Pulse 80 /min Comments: Pattern: Regular Respiration Rate 18 /min Comments: Pattern: Unlabored BP Systolic 122 mm[Hg] Comments: Patient Position: Standing; Cuff Location: Right Arm; Cuff Size: Large BP Diastolic 80 mm[Hg] Comments: Patient Position: Standing; Cuff Location: Right Arm; Cuff Size: Large Weight 136 lb Height 63.25 in Body Mass Index Calculated 23.9 kg/m2 Body Surface Area Calculated 1.65 m2 :38 Temperature 97 f Pulse 68 /min Comments: Pattern: Regular Respiration Rate 20 /min Comments: Pattern: Unlabored BP Systolic 138 mm[Hg] Comments: Patient Position: Sitting; Cuff Location: Left Arm; Cuff Size: Large BP Diastolic 82 mm[Hg] Comments: Patient Position: Sitting; Cuff Location: Left Arm; Cuff Size: Large Weight 135.125 lb Height 63.25 in Body Mass Index Calculated 23.75 kg/m2 Body Surface Area Calculated 1.64 m2 :04 Pulse 64 /min Comments: Pattern: Regular Respiration Rate 18 /min Comments: Pattern: Unlabored BP Systolic 124 mm[Hg] Comments: Patient Position: Sitting; Cuff Location: Left Arm; Cuff Size: Large BP Diastolic 76 mm[Hg] Comments: Patient Position: Sitting; Cuff Location: Left Arm; Cuff Size: Large Weight 135.125 lb Height 63.25 in Body Mass Index Calculated 23.75 kg/m2 Body Surface Area Calculated 1.64 m2 :52 Temperature 97.8 f Comments: Method: Oral Weight 140.5 lb Height 63.25 in Body Mass Index Calculated 24.69 kg/m2 Body Surface Area Calculated 1.67 m2 :05 Pulse 64 /min Comments: Pattern: Regular Respiration Rate 20 /min Comments: Pattern: Unlabored BP Systolic 122 mm[Hg] Comments: Patient Position: Sitting; Cuff Location: Right Arm; Cuff Size: Large BP Diastolic 70 mm[Hg] Comments: Patient Position: Sitting; Cuff Location: Right Arm; Cuff Size: Large Weight 140.5 lb Height 63.25 in Body Mass Index Calculated 24.69 kg/m2 Body Surface Area Calculated 1.67 m2 :19 Pulse 60 /min Comments: Pattern: Regular Respiration Rate 20 /min Comments: Pattern: Unlabored BP Systolic 122 mm[Hg] Comments: Patient Position: Sitting; Cuff Location: Left Arm; Cuff Size: Large BP Diastolic 60 mm[Hg] Comments: Patient Position: Sitting; Cuff Location: Left Arm; Cuff Size: Large Weight 140.5 lb Height 63.25 in Body Mass Index Calculated 24.69 kg/m2 Body Surface Area Calculated 1.67 m2 :12 Pulse 68 /min Comments: Pattern: Regular Respiration Rate 20 /min Comments: Pattern: Unlabored BP Systolic 122 mm[Hg] Comments: Patient Position: Sitting; Cuff Location: Left Arm; Cuff Size: Large BP Diastolic 64 mm[Hg] Comments: Patient Position: Sitting; Cuff Location: Left Arm; Cuff Size: Large Weight 140.5 lb Height 63.25 in Body Mass Index Calculated 24.69 kg/m2 Body Surface Area Calculated 1.67 m2 :41 Temperature 96.6 f Comments: Method: Oral Pulse 72 /min Comments: Pattern: Regular Respiration Rate 16 /min Comments: Pattern: Unlabored BP Systolic 118 mm[Hg] Comments: Patient Position: Sitting; Cuff Location: Left Arm; Cuff Size: Standard BP Diastolic 72 mm[Hg] Comments: Patient Position: Sitting; Cuff Location: Left Arm; Cuff Size: Standard Weight 143.5625 lb Height 64 in Body Mass Index Calculated 24.64 kg/m2 Body Surface Area Calculated 1.7 m2 :42 Temperature 97.1 f Comments: Method: Oral Pulse 72 /min Comments: Pattern: Regular Respiration Rate 15 /min Comments: Pattern: Unlabored BP Systolic 112 mm[Hg] Comments: Patient Position: Sitting; Cuff Location: Left Arm; Cuff Size: Standard BP Diastolic 70 mm[Hg] Comments: Patient Position: Sitting; Cuff Location: Left Arm; Cuff Size: Standard Weight 146.5625 lb :37 Temperature 97 f Comments: Method: Oral Pulse 72 /min Comments: Pattern: Regular Respiration Rate 16 /min Comments: Pattern: Unlabored BP Systolic 120 mm[Hg] Comments: Patient Position: Sitting; Cuff Location: Left Arm; Cuff Size: Standard BP Diastolic 78 mm[Hg] Comments: Patient Position: Sitting; Cuff Location: Left Arm; Cuff Size: Standard Weight 146.375 lb :14 Temperature 97.7 f Comments: Method: Oral Pulse 66 /min Comments: Pattern: Regular Respiration Rate 18 /min Comments: Pattern: Unlabored BP Systolic 116 mm[Hg] Comments: Patient Position: Sitting; Cuff Location: Left Arm; Cuff Size: Standard BP Diastolic 68 mm[Hg] Comments: Patient Position: Sitting; Cuff Location: Left Arm; Cuff Size: Standard Weight 146.375 lb Height 0 in Head Circumference 0.00 cm :53 Temperature 97.2 f Comments: Method: Oral Pulse 70 /min Comments: Pattern: Regular Respiration Rate 16 /min Comments: Pattern: Unlabored BP Systolic 114 mm[Hg] Comments: Patient Position: Sitting; Cuff Location: Left Arm; Cuff Size: Standard BP Diastolic 70 mm[Hg] Comments: Patient Position: Sitting; Cuff Location: Left Arm; Cuff Size: Standard Weight 150.3125 lb Height 0 in Head Circumference 0.00 cm :39 Temperature 97 f Comments: Method: Oral Pulse 68 /min Comments: Pattern: Regular Respiration Rate 18 /min Comments: Pattern: Unlabored BP Systolic 116 mm[Hg] Comments: Patient Position: Sitting; Cuff Location: Right Arm; Cuff Size: Standard BP Diastolic 64 mm[Hg] Comments: Patient Position: Sitting; Cuff Location: Right Arm; Cuff Size: Standard Weight 145.3125 lb Height 64.25 in Body Mass Index Calculated 24.75 kg/m2 Body Surface Area Calculated 1.71 m2 Head Circumference 0.00 cm :33 Temperature 98.4 f Comments: Method: Oral Pulse 64 /min Comments: Pattern: Regular Respiration Rate 16 /min Comments: Pattern: Unlabored BP Systolic 104 mm[Hg] Comments: Patient Position: Sitting; Cuff Location: Right Arm; Cuff Size: Standard BP Diastolic 72 mm[Hg] Comments: Patient Position: Sitting; Cuff Location: Right Arm; Cuff Size: Standard Weight 144 lb Height 64.25 in Body Mass Index Calculated 24.53 kg/m2 Body Surface Area Calculated 1.71 m2 Head Circumference 0.00 cm :51 Temperature 97.4 f Comments: Method: Oral Pulse 70 /min Comments: Pattern: Regular Respiration Rate 17 /min Comments: Pattern: Unlabored BP Systolic 102 mm[Hg] Comments: Patient Position: Sitting; Cuff Location: Left Arm; Cuff Size: Standard BP Diastolic 68 mm[Hg] Comments: Patient Position: Sitting; Cuff Location: Left Arm; Cuff Size: Standard Weight 144 lb Height 64.25 in Body Mass Index Calculated 24.53 kg/m2 Body Surface Area Calculated 1.71 m2 Head Circumference 0.00 cm :33 Temperature 98 f Comments: Method: Oral Pulse 72 /min Comments: Pattern: Regular Respiration Rate 16 /min Comments: Pattern: Unlabored BP Systolic 120 mm[Hg] Comments: Patient Position: Sitting; Cuff Location: Right Arm; Cuff Size: Standard BP Diastolic 68 mm[Hg] Comments: Patient Position: Sitting; Cuff Location: Right Arm; Cuff Size: Standard Weight 144 lb Height 0 in Head Circumference 0.00 cm :37 Temperature 98.6 f Comments: Method: Oral Pulse 72 /min Comments: Pattern: Regular Respiration Rate 18 /min Comments: Pattern: Unlabored BP Systolic 132 mm[Hg] Comments: Patient Position: Sitting; Cuff Location: Right Arm; Cuff Size: Standard BP Diastolic 74 mm[Hg] Comments: Patient Position: Sitting; Cuff Location: Right Arm; Cuff Size: Standard Weight 144 lb Height 0 in Head Circumference 0.00 cm :51 Temperature 99 f Comments: Method: Undefined Pulse 76 /min Comments: Pattern: Regular Respiration Rate 16 /min Comments: Pattern: Undefined BP Systolic 130 mm[Hg] Comments: Patient Position: Undefined; Cuff Location: Undefined; Cuff Size: Undefined BP Diastolic 64 mm[Hg] Comments: Patient Position: Undefined; Cuff Location: Undefined; Cuff Size: Undefined Weight 144 lb Height 0 in Head Circumference 0.00 cm :28 Temperature 97.1 f Comments: Method: Undefined Pulse 76 /min Comments: Pattern: Regular Respiration Rate 16 /min Comments: Pattern: Undefined BP Systolic 118 mm[Hg] Comments: Patient Position: Sitting; Cuff Location: Left Arm; Cuff Size: Standard BP Diastolic 60 mm[Hg] Comments: Patient Position: Sitting; Cuff Location: Left Arm; Cuff Size: Standard Weight 145.0625 lb Height 65 in Body Mass Index Calculated 24.14 kg/m2 Body Surface Area Calculated 1.73 m2 Head Circumference 0.00 cm :08 Temperature 98.8 f Comments: Method: Undefined Pulse 76 /min Comments: Pattern: Regular Respiration Rate 16 /min Comments: Pattern: Undefined BP Systolic 142 mm[Hg] Comments: Patient Position: Sitting; Cuff Location: Left Arm; Cuff Size: Standard BP Diastolic 80 mm[Hg] Comments: Patient Position: Sitting; Cuff Location: Left Arm; Cuff Size: Standard Weight 0 lb Height 0 in Head Circumference 0.00 cm Results Date Description Value Details [id number] ENDOCER CURETT/BIOPSY See Note (Normal) Comments: [facility] [id number] [place], [address] Comments: Patient: CRIS SEAY : 1940 (77/F) Acct Num: [id number] Phys: Nataliya STEWART,Shira Unit Num: [id number] Loc: [facility] – [place] Specimen: [id number] Received: 11/21/17 - 1114 Spec Type: ECC TISSUES TISSUES: A. Endocervical B. Endometrium, NOS COMMENT A. A fragment of fibroconnective tissue is noted devoid of any overlying epithelium may represent fragment of benign inflamed polyp. GROSS DESCRIPTION A - Received in fixative is one container labeled with the patient's name and designated endocervical curettings. The specimen consists of multiple fragments of hemorrhagic soft tissue that in aggregate measure 2 x 0.5 x 0.1 cm. The specimen is totally submitted in one cassette. B - Received in fixative is one container labeled with the patient's name and designated endometrium. The specimen consists of multiple fragments of hemorrhagic soft tissue that in aggregate measure 1.5 x 0.8 x 0.1 cm. The specimen is totally submitted in o ne cassette. / CATALINA:ferny 11/21/17 TC:5 CPT: 42762 x2 HEADER OPERATION: Hysteroscopy, dilation and curettage PRE-OP DIAGNOSIS: Postmenopausal bleeding TISSUE SUBMITTED: A Endocervical curett age, B - Endometrium MICROSCOPIC DESCRIPTION Slides are reviewed. MICROSCOPIC DIAGNOSIS A. Endocervical curettage: Fragments of benign endocervical mucosa with acute and chronic inf lammation. See comment. Strips of benign endometrial epithelium. B. Endometrium, dilation and curettage: Strips and superficial fragments of benign endometrial tissue, consistent with at rophic endometrium, blood and mucous. CATALINA:ferny 11/24/17 Signed Stiven Crocker 11/24/17 <signature on file> [id number] CBC-Complete Blood Cnt No Diff Comments: [facility] [id number] [place], [id number] MPV 8.9 fL (Normal) Range: 6.2-12.0 PLT 200 K/mm3 (Normal) Range: 150-450 RDW SD 45.4 fL (Abnormal) Range: 35.1-43.9 RDW CV 13.4 % (Normal) Range: 11.6-14.6 MCHC 33.3 {g/gl} (Normal) Range: 32-36 MCH 31.0 pg (Normal) Range: 27.0-32.0 MCV 93.4 fL (Normal) Range: 81-99 HCT 43.6 % (Normal) Range: 37-47 HGB 14.5 g/dL (Normal) Range: 12.0-15.0 RBC 4.67 {M/mm3} (Normal) Range: 4.2-5.4 WBC 5.8 K/mm3 (Normal) Range: 4.4-11.0 92-Ozr-139085:29 Partial Thromboplast Time Comments: [facility] Xeotpeivmc[address] [place], [address] PTT 28.1 s (Normal) Range: 24.1-36.2 32-Mxa-571367:29 Prothrombin Time w/INR Comments: [facility] Tgiqguokwy6580 [place], [address] INR 1.0 (Normal) PROTIME 13.0 s (Normal) Range: 11.7-14.9 16-Kfn-584310:29 Type AND Screen Comments: Surgery Date: 11/21/17Hx of Preganancy in last 3 Months NoEver experience any problems with transfusion(s)? NHx of Transfusion in last 3 Months NReason for Type AND Screen/Red Cells: SURGERYSURGI TAY PROCEDURE: [facility] Unkksrxjaz[address] [place], [address] Antibody Screen NEGATIVE (Normal) BLOOD TYPE GEL O POSITIVE (Normal) 89-Mml-425813:48 METABOLIC PANEL, COMPREHENSIVE Comments: PATIENT WAS FASTINGPERFORMED BY: CB [facility] Jwuopp0539 [facility] [id number] (59219) ALT (SGPT) 17 [iU]/L (Normal) Range: 0-32 AST (SGOT) 22 [iU]/L (Normal) Range: 0-40 Alkaline Phosphatase, S 131 [iU]/L (Abnormal) Range: 39-117 Bilirubin, Total 0.6 mg/dL (Normal) Range: 0.0-1.2 A/G Ratio 1.5 (Normal) Range: 1.2-2.2 Globulin, Total 2.7 g/dL (Normal) Range: 1.5-4.5 Albumin, Serum 4.1 g/dL (Normal) Range: 3.5-4.8 Protein, Total, Serum 6.8 g/dL (Normal) Range: 6.0-8.5 Calcium, Serum 9.1 mg/dL (Normal) Range: 8.7-10.3 Carbon Dioxide, Total 24 mmol/L (Normal) Range: 18-29 Chloride, Serum 103 mmol/L (Normal) Range: 96-106 Potassium, Serum 4.2 mmol/L (Normal) Range: 3.5-5.2 Sodium, Serum 143 mmol/L (Normal) Range: 134-144 BUN/Creatinine Ratio 15 (Normal) Range: 12-28 eGFR If Africn Am 83 mL/min/1.73 (Normal) eGFR If NonAfricn Am 72 mL/min/1.73 (Normal) Creatinine, Serum 0.80 mg/dL (Normal) Range: 0.57-1.00 BUN 12 mg/dL (Normal) Range: 8-27 Glucose, Serum 88 mg/dL (Normal) Range: 65-99 96-Sui-415827:48 CBC W/AUTO DIFF WBC (52113) Comments: PATIENT WAS FASTINGPERFORMED BY: [facility]CoHealth[facility] UnionSiujuf1751 [facility] [id number] Immature Grans (Abs) 0.0 {x10E3/uL} (Normal) Range: 0.0-0.1 Immature Granulocytes 0 % (Normal) Baso (Absolute) 0.0 {x10E3/uL} (Normal) Range: 0.0-0.2 Eos (Absolute) 0.2 {x10E3/uL} (Normal) Range: 0.0-0.4 Monocytes(Absolute) 0.8 {x10E3/uL} (Normal) Range: 0.1-0.9 Lymphs (Absolute) 1.1 {x10E3/uL} (Normal) Range: 0.7-3.1 Neutrophils (Absolute) 5.5 {x10E3/uL} (Normal) Range: 1.4-7.0 Basos 0 % (Normal) Eos 2 % (Normal) Monocytes 11 % (Normal) Lymphs 15 % (Normal) Neutrophils 72 % (Normal) Platelets 233 {x10E3/uL} (Normal) Range: 150-379 RDW 13.4 % (Normal) Range: 12.3-15.4 MCHC 33.3 g/dL (Normal) Range: 31.5-35.7 MCH 30.9 pg (Normal) Range: 26.6-33.0 MCV 93 fL (Normal) Range: 79-97 Hematocrit 42.4 % (Normal) Range: 34.0-46.6 Hemoglobin 14.1 g/dL (Normal) Range: 11.1-15.9 RBC 4.56 {x10E6/uL} (Normal) Range: 3.77-5.28 WBC 7.7 {x10E3/uL} (Normal) Range: 3.4-10.8 86-Bic-148682:48 LIPID PANEL (34570) Comments: PATIENT WAS FASTINGPERFORMED BY: [facility] LabCoHealthSouth [facility] of UnionTzthkg5768 [facility] [id number] LDL/HDL Ratio 3.7 {ratio_units} (Abnormal) Range: 0.0-3.2 Comments: LDL/HDL Ratio Men Women 1/2 Avg.Risk 1.0 1.5 Av g.Risk 3.6 3.2 2X Avg.Risk 6.2 5.0 3X Avg.Risk 8.0 6.1 LDL Cholesterol Calc 170 mg/dL (Abnormal) Range: 0-99 VLDL Cholesterol Tay 35 mg/dL (Normal) Range: 5-40 HDL Cholesterol 46 mg/dL (Normal) Triglycerides 173 mg/dL (Abnormal) Range: 0-149 Cholesterol, Total 251 mg/dL (Abnormal) Range: 100-199 37-Rqw-038765:48 CALCIFEDIOL (62026) Comments: PATIENT WAS FASTINGPERFORMED BY: LabMid [facility] CenterCxsahg6955 [facility] [place] [id number] Vitamin D, 25-Hydroxy 42.7 ng/mL (Normal) Range: 30.0-100.0 Comments: Vitamin D deficiency has been defined by the [place] of[place]icine and an Endocrine Society practice guideline as alevel of serum 25-OH vitamin D less than 20 ng/mL (1,2).The Endocrine Society went on to further define vitamin Dinsufficiency as a level between 21 and 29 ng/mL (2).1. IOM ([place] of Medicine). 2010. Dietary reference intakes for calcium and D. [place]: The National AcademBeat.no Press.2. Benjamin MF, Lisa NC, Roland CALL, et al. Evaluation, treatment, and prevention of vitamin D deficiency: an Endocrine Society clinical practice guideline. JC. 2010; 96(7):1911-30. 09-Oac-135615:48 TSH (94029) Comments: PATIENT WAS FASTINGPERFORMED BY: NeoStemMid [facility] Mental Health CenterUfaqax1305 [facility] [id number] TSH 1.690 {uIU/mL} (Normal) Range: 0.450-4.500 73-Sbn-061637:48 T4, FREE (THYROXINE) (57193) Comments: PATIENT WAS FASTINGPERFORMED BY: [facility]6370 [facility] [id number] T4,Free(Direct) 1.56 ng/dL (Normal) Range: 0.82-1.77 22-Kya-143834:48 T3, FREE (TRIDOTHYRONINE) (41179) Comments: PATIENT WAS FASTINGPERFORMED BY: [facility] [id number] Triiodothyronine,Free,Serum 2.3 pg/mL (Normal) Range: 2.0-4.4 99-Zdz-213434:30 PAP I-G w/rfx hrHPV Comments: CYTOLOGY INFORMATION:- CLINICAL INFORMATION: POSTMENOPAUSAL- DATE LMP/MENOPAUSE: MENOPAUSE- COLLECTION VIAL: Thin Prep Vial- AUDIT LEAD SOURCE: CERVICAL/ENDOCERVICAL- COLLECTION TECHNIQUE: BRUSH/ SPATULACYTOL OGY INFORMATION:- CLINICAL INFORMATION: POSTMENOPAUSAL- DATE LMP/MENOPAUSE: MENOPAUSE- COLLECTION VIAL: Thin Prep Vial- AUDIT LEAD SOURCE: CERVICAL/ENDOCERVICAL- COLLECTION TECHNIQUE: BRUSH/SPATULASpecimen C omment: [id number] Comment: No. of containers..01 CYTYC Thin Prep VialLabCorp (refer to report for specific site)refer to report for address and phone number HPV RFLX Comment (Normal) Comments: The HPV DNA reflex criteria were not met with this specimenresult therefore, no HPV testing was performed.Performed at: [address] [id number] Director: Debora Taylor MD, Phone: [phone] PAPSMR Comment (Normal) Comments: The Pap smear is a screening test designed to aid in thedetection of premalignant and malignant conditions of theuterine cervix. It is not a diagnostic procedure andshould not be used as the sole means of detecting cervicalcancer. Both false-positive and false-negative reports dooccur. COMM . (Normal) TEST METHOD Comment (Normal) Comments: This liquid based ThinPrep(R) pap test was screened withthe use of an image guided system. PERFORM Comment (Normal) Comments: Jaclyn Ladd, Cpa Tax (ASCP) ADEQ Comment (Normal) Comments: Satisfactory for evaluation. Endocervical and/or squamous metaplasticcells (endocervical component) are present. DIAGN Comment (Normal) Comments: NEGATIVE FOR INTRAEPITHELIAL LESION AND MALIGNANCY. 45-Tdx-957660:42 CALCIFIDIOL (16433) VIT D Comments: PATIENT NOT FASTINGPERFORMED BY: [facility]6370 [facility] [id number] Information: [id number] Vitamin D, 25-Hydroxy 47.3 ng/mL (Normal) Range: 30.0-100.0 Comments: Vitamin D deficiency has been defined by the [place] of[place]icine and an Endocrine Society practice guideline as alevel of serum 25-OH vitamin D less than 20 ng/mL (1,2).The Endocrine Society went on to further define vitamin Dinsufficiency as a level between 21 and 29 ng/mL (2).1. IOM ([place] of Medicine). 2010. Dietary reference intakes for calcium and D. [place]: The National Academies Press.2. Benjamin MF, Lisa NC, Roland CALL, et al. Evaluation, treatment, and prevention of vitamin D deficiency: an Endocrine Society clinical practice guideline. JCEM. 2010; 96(7):1911-30. :51 Lipid Panel (59140) Comments: PATIENT WAS FASTINGPERFORMED BY: [employer] [facility] [id number] Information: [id number]; apt. 05-24-15 LDL/HDL Ratio 2.9 {ratio_units} (Normal) Range: 0.0-3.2 Comments: LDL/HDL Ratio Men Women 1/2 Avg.Risk 1.0 1.5 Av g.Risk 3.6 3.2 2X Avg.Risk 6.2 5.0 3X Avg.Risk 8.0 6.1 LDL Cholesterol Calc 129 mg/dL (Abnormal) Range: 0-99 VLDL Cholesterol Tay 50 mg/dL (Abnormal) Range: 5-40 HDL Cholesterol 44 mg/dL (Normal) Comments: According to ATP-III Guidelines, HDL-C >59 mg/dL is considered anegative risk factor for CHD. Triglycerides 252 mg/dL (Abnormal) Range: 0-149 Cholesterol, Total 223 mg/dL (Abnormal) Range: 100-199 :51 TSH (41145) Comments: PATIENT WAS FASTINGPERFORMED BY: [facility] Pyxglm5714 [facility] [id number] TSH 1.460 {uIU/mL} (Normal) Range: 0.450-4.500 :51 T4, FREE (THYROXINE) (28741) Comments: PATIENT WAS FASTINGPERFORMED BY: [employer]6370 [facility] [id number] T4,Free(Direct) 1.33 ng/dL (Normal) Range: 0.82-1.77 :51 T3, FREE (TRIDOTHYRONINE) (21438) Comments: PATIENT WAS FASTINGPERFORMED BY: [employer]70 [facility] [id number] Triiodothyronine,Free,Serum 2.6 pg/mL (Normal) Range: 2.0-4.4 :41 CBC With Differential/Platelet Comments: PATIENT WAS FASTINGPERFORMED BY: MARJ PictureHealingHealthSouth - [facility] Hospital of UnionMbvwog0739 [facility] [id number] Information: [id number] Immature Grans (Abs) 0.0 {x10E3/uL} (Normal) Range: 0.0-0.1 Immature Granulocytes 0 % (Normal) Baso (Absolute) 0.0 {x10E3/uL} (Normal) Range: 0.0-0.2 Eos (Absolute) 0.1 {x10E3/uL} (Normal) Range: 0.0-0.4 Monocytes(Absolute) 0.7 {x10E3/uL} (Normal) Range: 0.1-0.9 Lymphs (Absolute) 1.5 {x10E3/uL} (Normal) Range: 0.7-3.1 Neutrophils (Absolute) 3.0 {x10E3/uL} (Normal) Range: 1.4-7.0 Basos 0 % (Normal) Eos 2 % (Normal) Monocytes 13 % (Normal) Lymphs 28 % (Normal) Neutrophils 57 % (Normal) Platelets 203 {x10E3/uL} (Normal) Range: 150-379 RDW 12.9 % (Normal) Range: 12.3-15.4 MCHC 33.7 g/dL (Normal) Range: 31.5-35.7 MCH 30.3 pg (Normal) Range: 26.6-33.0 MCV 90 fL (Normal) Range: 79-97 Hematocrit 38.9 % (Normal) Range: 34.0-46.6 Hemoglobin 13.1 g/dL (Normal) Range: 11.1-15.9 RBC 4.32 {x10E6/uL} (Normal) Range: 3.77-5.28 WBC 5.2 {x10E3/uL} (Normal) Range: 3.4-10.8 :41 Comp. Metabolic Panel (14) Comments: PATIENT WAS FASTINGPERFORMED BY: [facility]StemMym[facility]6370 [facility] [id number] ALT (SGPT) 9 [iU]/L (Normal) Range: 0-32 AST (SGOT) 18 [iU]/L (Normal) Range: 0-40 Alkaline Phosphatase, S 96 [iU]/L (Normal) Range: 39-117 Bilirubin, Total 0.7 mg/dL (Normal) Range: 0.0-1.2 A/G Ratio 2.0 (Normal) Range: 1.1-2.5 Globulin, Total 2.1 g/dL (Normal) Range: 1.5-4.5 Albumin, Serum 4.1 g/dL (Normal) Range: 3.5-4.8 Protein, Total, Serum 6.2 g/dL (Normal) Range: 6.0-8.5 Calcium, Serum 9.0 mg/dL (Normal) Range: 8.7-10.3 Carbon Dioxide, Total 26 mmol/L (Normal) Range: 18-29 Chloride, Serum 102 mmol/L (Normal) Range: 97-108 Potassium, Serum 3.8 mmol/L (Normal) Range: 3.5-5.2 Sodium, Serum 142 mmol/L (Normal) Range: 134-144 BUN/Creatinine Ratio 13 (Normal) Range: 11-26 eGFR If Africn Am 88 mL/min/1.73 (Normal) eGFR If NonAfricn Am 76 mL/min/1.73 (Normal) Creatinine, Serum 0.78 mg/dL (Normal) Range: 0.57-1.00 BUN 10 mg/dL (Normal) Range: 8-27 Glucose, Serum 76 mg/dL (Normal) Range: 65-99 29-Pda-150383:41 Lipid Panel With LDL/HDL Comments: PATIENT WAS FASTINGPERFORMED BY: LabCoHealthSouth [facility] of UnionZyojin0247 [facility] [id number] Ratio LDL/HDL Ratio 3.1 {ratio_units} Range: 0.0-3.2 (Normal) Comments: LDL/HDL Ratio Men Women 1/2 Avg.Risk 1.0 1.5 Av g.Risk 3.6 3.2 2X Avg.Risk 6.2 5.0 3X Avg.Risk 8.0 6.1 LDL Cholesterol Calc 139 mg/dL (Abnormal) Range: 0-99 VLDL Cholesterol Tay 31 mg/dL (Normal) Range: 5-40 HDL Cholesterol 45 mg/dL (Normal) Comments: According to ATP-III Guidelines, HDL-C >59 mg/dL is considered anegative risk factor for CHD. Triglycerides 157 mg/dL (Abnormal) Range: 0-149 Cholesterol, Total 215 mg/dL (Abnormal) Range: 100-199 28-Nov-2014 TSH 5.050 {uIU/mL} Comments: PATIENT WAS FASTINGPERFORMED BY: LabCo Dasxav1121 [facility] [id number] 10:41 (Abnormal) Range: 0.450-4.500 28-Nov-2014 Vitamin D, 25-Hydroxy 45.1 ng/mL (Normal) Comments: PATIENT WAS FASTINGPERFORMED BY: [facility] Xdyqjt0422 [facility] [id number] 10:41 Range: 30.0-100.0 Comments: Vitamin D deficiency has been defined by the [place] of[place]icine and an Endocrine Society practice guideline as alevel of serum 25-OH vitamin D less than 20 ng/mL (1,2).The Endocrine Society went on to further define vitamin Dinsufficiency as a level between 21 and 29 ng/mL (2).1. IOM ([place] of Medicine). 2010. Dietary reference intakes for calcium and D. [place]: The National Academies Press.2. Benjamin MF, Lisa NC, Roland CALL, et al. Evaluation, treatment, and prevention of vitamin D deficiency: an Endocrine Society clinical practice guideline. JCEM. 2010; 96(7):1911-30. 89-Lyd-879130:24 HPV automatic Comments: Source.............Cervical;EndocervicalNo. of containers..01 CYTYC Thin Prep VialPATIENT NOT FASTINGPERFORMED BY: WB [facility] Qfgdveqfuk087 [facility] W [id number] BY: =Simone Monsalve (12249) [facility] Qfmfmugyjv085 [facility] [place] [id number] Information: [id number] HPV, high-risk Negative Comments: This high-risk HPV test detects thirteen high- risk types(16/18/31/33/35/39/45/51/52/56/58/59/68) without differentiation. . (Normal) Note: PAPSMR (Normal) Comments: The Pap smear is a screening test designed to aid in the detection ofpremalignant and malignant conditions of the uterine cervix. It is not adiagnostic procedure and should not be used as the sole mean s of detectingcervical cancer. Both false-positive and false-negative reports do occur. .This liquid based ThinPrep(R) pap test w as screened with theuse of an image guided system. See Note . (Normal) DIAGNOSIS: SPRCS (Normal) Comments: NEGATIVE FOR INTRAEPITHELIAL LESION AND MALIGNANCY.Satisfactory for evaluation. Endocervical and/or squamous metaplasticcells (endocervical component) are present.V72.31 ; Routine gynecolog ical examleah Hercules, Cpa Tax (ASCP) 03-Juw-198894:18 URINE YUNG CULTURE-IDENTIFICATN Comments: PATIENT NOT FASTINGPERFORMED BY: [facility] [id number] (92477) Result 1 MUG (Normal) Comments: Mixed urogenital flora1,000 Colonies/mL Urine Culture,Comprehensive Final report (Normal) 51-Hup-340474:18 URINALYSIS (18220) Comments: PATIENT NOT FASTINGPERFORMED BY: [facility] [id number] Information: [id number] Microscopic Examination MICNIP (Normal) Comments: Microscopic not indicated and not performed. Nitrite, Urine Negative (Normal) Urobilinogen,Semi-Qn 0.2 mg/dL (Normal) Range: 0.0-1.9 Bilirubin Negative (Normal) Occult Blood Negative (Normal) Ketones Negative (Normal) Glucose Negative (Normal) Protein Negative (Normal) WBC Esterase Negative (Normal) Appearance Clear (Normal) Urine-Color Yellow (Normal) pH 6.5 (Normal) Range: 5.0-7.5 Specific Warrior 1.025 (Normal) Range: 1.005-1.030 9-Dmi-214552:21 LIPID PANEL (67538) Comments: PATIENT NOT FASTINGPERFORMED BY: [facility] [id number] Information: [id number] LDL/HDL Ratio 4.0 {ratio_units} (Abnormal) Range: 0.0-3.2 Comments: LDL/HDL Ratio Men Women 1/2 Avg.Risk 1.0 1.5 Av g.Risk 3.6 3.2 2X Avg.Risk 6.2 5.0 3X Avg.Risk 8.0 6.1 LDL Cholesterol Calc 180 mg/dL (Abnormal) Range: 0-99 VLDL Cholesterol Tay 42 mg/dL (Abnormal) Range: 5-40 HDL Cholesterol 45 mg/dL (Normal) Comments: According to ATP-III Guidelines, HDL-C >59 mg/dL is considered anegative risk factor for CHD. Triglycerides 208 mg/dL (Abnormal) Range: 0-149 Cholesterol, Total 267 mg/dL (Abnormal) Range: 100-199 3-Rkn-826381:21 Anti-TPO Antibody (95948) Comments: PATIENT NOT FASTINGPERFORMED BY: [employer] [employer] [facility] [id number] Liver-Kidney Microsomal Ab <1.0 {Units} (Normal) Range: 0.0-20.0 Comments: Negative 0.0 - 20.0 Equivocal 20.1 - 24.9 Positive >24.9 . LKM type 1 antibodies are detected in patients with autoimmune hepatitis type 2 and in up to 8% of patients with chronic HCV infection. 0-Vhp-132895:21 T3, FREE (TRIDOTHYRONINE) (85579) Comments: PATIENT NOT FASTINGPERFORMED BY: [facility] Sijjbj1954 [facility] [id number] Triiodothyronine,Free,Serum 2.3 pg/mL (Normal) Range: 2.0-4.4 4-Nvp-815655:21 T4, FREE (THYROXINE) (16604) Comments: PATIENT NOT FASTINGPERFORMED BY: PictureHealingHealthSouth - [facility] of UnionQyrykp4601 [facility] [id number] T4,Free(Direct) 1.31 ng/dL (Normal) Range: 0.82-1.77 0-Qor-922130:21 TSH (39357) Comments: PATIENT NOT FASTINGPERFORMED BY: [facility]6370 [facility] [id number] TSH 3.770 {uIU/mL} (Normal) Range: 0.450-4.500 4-Xik-098453:21 Vitamin D Hydroxy (54221) Comments: PATIENT NOT FASTINGPERFORMED BY: LabMym[facility] Branch6370 [facility] [id number] Vitamin D, 25-Hydroxy 57.7 ng/mL (Normal) Range: 30.0-100.0 Comments: Vitamin D deficiency has been defined by the [place] of[place]icine and an Endocrine Society practice guideline as alevel of serum 25-OH vitamin D less than 20 ng/mL (1,2).The Endocrine Society went on to further define vitamin Dinsufficiency as a level between 21 and 29 ng/mL (2).1. IOM ([place] of Medicine). 2010. Dietary reference intakes for calcium and D. [place]: The National AcademBeat.no Press.2. Benjamin MF, Lisa CHRIS, Roland CALL, et al. Evaluation, treatment, and prevention of vitamin D deficiency: an Endocrine Society clinical practice guideline. JCEM. 2010; 96(7):1911-30. 04-Apr-20149:03 Urinalysis, Office (93265) UA - LEUKOCYTE ESTERASE Negative (Normal) UA - NITRITE Negative (Normal) URINE UROBILINGN BAKARI TIMED Normal mg/dL (Normal) UA - PROTEIN Negative mg/dL (Normal) UA - PH 6.0 (Normal) UA - BLOOD non-hemolyzed trace (Normal) UA - SPECIFIC GRAVITY 1.025 (Normal) UA - KETONES Negative mg/dL (Normal) UA - BILIRUBIN Negative (Normal) UA - GLUCOSE Negative (Normal) 91-Tfv-162750:07 Vitamin D Hydroxy (26485) Comments: PATIENT WAS FASTINGPERFORMED BY: [facility]6370 [facility] [id number] Vitamin D, 25-Hydroxy 39.1 ng/mL (Normal) Range: 30.0-100.0 Comments: Vitamin D deficiency has been defined by the [place] of[place]icine and an Endocrine Society practice guideline as alevel of serum 25-OH vitamin D less than 20 ng/mL (1,2).The Endocrine Society went on to further define vitamin Dinsufficiency as a level between 21 and 29 ng/mL (2).1. IOM ([place] of Medicine). 2010. Dietary reference intakes for calcium and D. [place]: The National Academies Press.2. Benjamin MF, Lisa CHRIS, Roland CALL, et al. Evaluation, treatment, and prevention of vitamin D deficiency: an Endocrine Society clinical practice guideline. JCEM. 2010; 96(7):1911-30. 80-Ove-479931:07 LIPID PANEL (84851) Comments: PATIENT WAS FASTINGPERFORMED BY: [employer]70 [facility] [id number] Information: [id number] LDL/HDL Ratio 3.6 {ratio_units} (Abnormal) Range: 0.0-3.2 Comments: LDL/HDL Ratio Men Women 1/2 Avg.Risk 1.0 1.5 Av g.Risk 3.6 3.2 2X Avg.Risk 6.2 5.0 3X Avg.Risk 8.0 6.1 LDL Cholesterol Calc 159 mg/dL (Abnormal) Range: 0-99 VLDL Cholesterol Tay 40 mg/dL (Normal) Range: 5-40 HDL Cholesterol 44 mg/dL (Normal) Comments: According to ATP-III Guidelines, HDL-C >59 mg/dL is considered anegative risk factor for CHD. Triglycerides 198 mg/dL (Abnormal) Range: 0-149 Cholesterol, Total 243 mg/dL (Abnormal) Range: 100-199 63-Wgi-970543:07 TSH (06170) Comments: PATIENT WAS FASTINGPERFORMED BY: [employer]6370 [facility] [id number] Comment: TSHA (Normal) Comments: The Endocrine Society recommends against routine treatment forpatients with elevated TSH levels below 10.000 uIU/mL if free T4 orT4 are normal. Thyroid function should be monitored at 6 to 12month inte rvals. Women who are or hope to become in the near future deserve special consideration. TSH 4.770 {uIU/mL} (Abnormal) Range: 0.450-4.500 70-Edm-117890:31 CBC WITH MANUAL DIFF Comments: PATIENT NOT FASTINGPERFORMED BY: [employer]70 [facility] [id number] Information: [id number] (55932) Immature Grans (Abs) 0.0 {x10E3/uL} (Normal) Range: 0.0-0.1 Immature Granulocytes 0 % (Normal) Range: 0-2 Baso (Absolute) 0.0 {x10E3/uL} (Normal) Range: 0.0-0.2 Eos (Absolute) 0.1 {x10E3/uL} (Normal) Range: 0.0-0.4 Monocytes(Absolute) 0.8 {x10E3/uL} (Normal) Range: 0.1-0.9 Lymphs (Absolute) 1.5 {x10E3/uL} (Normal) Range: 0.7-3.1 Neutrophils (Absolute) 3.3 {x10E3/uL} (Normal) Range: 1.4-7.0 Basos 0 % (Normal) Range: 0-3 Eos 2 % (Normal) Range: 0-5 Monocytes 14 % (Abnormal) Range: 4-12 Lymphs 26 % (Normal) Range: 14-46 Neutrophils 58 % (Normal) Range: 40-74 Platelets 232 {x10E3/uL} (Normal) Range: 155-379 RDW 13.6 % (Normal) Range: 12.3-15.4 MCHC 34.5 g/dL (Normal) Range: 31.5-35.7 MCH 31.6 pg (Normal) Range: 26.6-33.0 MCV 92 fL (Normal) Range: 79-97 Hematocrit 41.4 % (Normal) Range: 34.0-46.6 Hemoglobin 14.3 g/dL (Normal) Range: 11.1-15.9 RBC 4.52 {x10E6/uL} (Normal) Range: 3.77-5.28 WBC 5.8 {x10E3/uL} (Normal) Range: 3.4-10.8 60-Ktt-085154:31 METABOLIC PANEL, COMPREHENSIVE Comments: PATIENT NOT FASTINGPERFORMED BY: MARJ [facility] Kendhy8318 [facility] [id number] (64553) ALT (SGPT) 12 [iU]/L (Normal) Range: 0-32 AST (SGOT) 20 [iU]/L (Normal) Range: 0-40 Alkaline Phosphatase, S 103 [iU]/L (Normal) Range: 39-117 Bilirubin, Total 0.5 mg/dL (Normal) Range: 0.0-1.2 A/G Ratio 1.7 (Normal) Range: 1.1-2.5 Globulin, Total 2.6 g/dL (Normal) Range: 1.5-4.5 Albumin, Serum 4.3 g/dL (Normal) Range: 3.5-4.8 Protein, Total, Serum 6.9 g/dL (Normal) Range: 6.0-8.5 Calcium, Serum 9.7 mg/dL (Normal) Range: 8.6-10.2 Carbon Dioxide, Total 25 mmol/L (Normal) Range: 19-28 Chloride, Serum 103 mmol/L (Normal) Range: 97-108 Potassium, Serum 3.9 mmol/L (Normal) Range: 3.5-5.2 Sodium, Serum 141 mmol/L (Normal) Range: 134-144 BUN/Creatinine Ratio 15 (Normal) Range: 11-26 eGFR If Africn Am 75 mL/min/1.73 (Normal) eGFR If NonAfricn Am 65 mL/min/1.73 (Normal) Creatinine, Serum 0.89 mg/dL (Normal) Range: 0.57-1.00 BUN 13 mg/dL (Normal) Range: 8-27 Glucose, Serum 94 mg/dL (Normal) Range: 65-99 17-Qbo-144394:31 LIPID PANEL (25822) Comments: PATIENT NOT FASTINGPERFORMED BY: 71lbs Rqutmo3085 [facility] [id number] LDL/HDL Ratio 3.1 {ratio_units} (Normal) Range: 0.0-3.2 LDL Cholesterol Calc 160 mg/dL (Abnormal) Range: 0-99 VLDL Cholesterol Tay 36 mg/dL (Normal) Range: 5-40 HDL Cholesterol 51 mg/dL (Normal) Comments: According to ATP-III Guidelines, HDL-C >59 mg/dL is considered anegative risk factor for CHD. Triglycerides 179 mg/dL (Abnormal) Range: 0-149 Cholesterol, Total 247 mg/dL (Abnormal) Range: 100-199 36-Tkm-569231:31 TSH (24562) Comments: PATIENT NOT FASTINGPERFORMED BY: [facility] [place] [id number] TSH 4.080 {uIU/mL} (Normal) Range: 0.450-4.500 35-Ggk-645639:31 Vitamin D Hydroxy (82381) Comments: PATIENT NOT FASTINGPERFORMED BY: [facility] [id number] Vitamin D, 25-Hydroxy 38.1 ng/mL (Normal) Range: 30.0-100.0 Comments: Vitamin D deficiency has been defined by the [place] of[employer] and an Endocrine Society practice guideline as alevel of serum 25-OH vitamin D less than 20 ng/mL (1,2).The Endocrine Society went on to further define vitamin Dinsufficiency as a level between 21 and 29 ng/mL (2).1. IOM ([place] [employer]). 2010. Dietary reference intakes for calcium and D. [place]: The National Academies Press.2. Benjamin MF, Lisa CHRIS, Roland CALL, et al. Evaluation, treatment, and prevention of vitamin D deficiency: an Endocrine Society clinical practice guideline. JCEM. 2010; 96(7):1911-30. [id number] C-REACT PROT HIGH Comments: PATIENT NOT FASTINGPERFORMED BY: [facility] [facility] [id number] Information: [id number] SENS(hsCRP) (97435) C-Reactive Protein, Cardiac 0.66 mg/L (Normal) Range: 0.00-3.00 Comments: Relative Risk for Future Cardiovascular Event Low <1.00 Average 1.00 - 3.00 High >3.00 13-Sfy-720262:09 CALCIFEDIOL (30386) Comments: PATIENT WAS FASTINGPERFORMED BY: [facility] [id number] Vitamin D, 25-Hydroxy 38.2 ng/mL (Normal) Range: 30.0-100.0 Comments: Vitamin D deficiency has been defined by the [place] and an Endocrine Society practice guideline as alevel of serum 25-OH vitamin D less than 20 ng/mL (1,2).The Endocrine Society went on to further define vitamin Dinsufficiency as a level between 21 and 29 ng/mL (2).1. IOM ([place] of [employer]). 2010. Dietary reference intakes for calcium and D. [place]: The National Academies Press.2. Benjamin MF, Lisa CHRIS, Roland CALL, et al. Evaluation, treatment, and prevention of vitamin D deficiency: an Endocrine Society clinical practice guideline. JCEM. 2010; 96(7):1911-30. [id number]-[id number]:09 URINALYSIS (43640) Comments: PATIENT WAS FASTINGPERFORMED BY: [employer]70 [facility] [id number] Microscopic Examination MICRON (Normal) Comments: Microscopic follows if indicated. Nitrite, Urine Negative (Normal) Urobilinogen,Semi-Qn 0.2 mg/dL (Normal) Range: 0.0-1.9 Bilirubin Negative (Normal) Occult Blood Negative (Normal) Ketones Trace (Abnormal) Glucose Negative (Normal) Protein Trace (Normal) Appearance Clear (Normal) WBC Esterase Negative (Normal) Urine-Color Yellow (Normal) pH 5.5 (Normal) Range: 5.0-7.5 Specific Warrior 1.024 (Normal) Range: 1.005-1.030 78-Mdo-473459:09 TSH (05765) Comments: PATIENT WAS FASTINGPERFORMED BY: [employer] Dwdftg8539 [facility] [id number] TSH 3.290 {uIU/mL} (Normal) Range: 0.450-4.500 46-Fmx-765790:09 CBC, Platelets & Auto Comments: PATIENT WAS FASTINGPERFORMED BY: [employer] Cngyfv8981 [facility] [id number] Information: [id number] Diff (49767) Immature Grans (Abs) 0.0 {x10E3/uL} (Normal) Range: 0.0-0.1 Immature Granulocytes 0 % (Normal) Range: 0-2 Baso (Absolute) 0.0 {x10E3/uL} (Normal) Range: 0.0-0.2 Eos (Absolute) 0.1 {x10E3/uL} (Normal) Range: 0.0-0.4 Monocytes(Absolute) 0.6 {x10E3/uL} (Normal) Range: 0.1-0.9 Lymphs (Absolute) 1.4 {x10E3/uL} (Normal) Range: 0.7-3.1 Neutrophils (Absolute) 3.9 {x10E3/uL} (Normal) Range: 1.4-7.0 Basos 1 % (Normal) Range: 0-3 Eos 1 % (Normal) Range: 0-5 Monocytes 10 % (Normal) Range: 4-12 Lymphs 24 % (Normal) Range: 14-46 Neutrophils 64 % (Normal) Range: 40-74 Platelets 237 {x10E3/uL} (Normal) Range: 155-379 RDW 13.6 % (Normal) Range: 12.3-15.4 MCHC 33.8 g/dL (Normal) Range: 31.5-35.7 MCH 30.9 pg (Normal) Range: 26.6-33.0 MCV 91 fL (Normal) Range: 79-97 Hematocrit 43.2 % (Normal) Range: 34.0-46.6 Hemoglobin 14.6 g/dL (Normal) Range: 11.1-15.9 RBC 4.73 {x10E6/uL} (Normal) Range: 3.77-5.28 WBC 6.0 {x10E3/uL} (Normal) Range: 3.4-10.8 68-Gnt-208555:09 HEPATIC FUNCTION PANEL Comments: PATIENT WAS FASTINGPERFORMED BY: [facility] UnionKjlfoq8177 [facility] [id number] ([id number]) Bilirubin, Direct 0.13 mg/dL (Normal) Range: 0.00-0.40 34-Gfo-041534:09 Metabolic Panel, Comprehensive Comments: PATIENT WAS FASTINGPERFORMED BY: [facility] UnionKkfrkd2025 [facility] [id number] ([id number]) ALT (SGPT) 15 [iU]/L (Normal) Range: 0-32 AST (SGOT) 23 [iU]/L (Normal) Range: 0-40 Alkaline Phosphatase, S 111 [iU]/L (Normal) Range: 39-117 A/G Ratio 1.5 (Normal) Range: 1.1-2.5 Bilirubin, Total 0.5 mg/dL (Normal) Range: 0.0-1.2 Globulin, Total 2.9 g/dL (Normal) Range: 1.5-4.5 Albumin, Serum 4.3 g/dL (Normal) Range: 3.5-4.8 Protein, Total, Serum 7.2 g/dL (Normal) Range: 6.0-8.5 Calcium, Serum 9.3 mg/dL (Normal) Range: 8.6-10.2 Carbon Dioxide, Total 25 mmol/L (Normal) Range: 19-28 Chloride, Serum 105 mmol/L (Normal) Range: 97-108 Potassium, Serum 4.1 mmol/L (Normal) Range: 3.5-5.2 Sodium, Serum 144 mmol/L (Normal) Range: 134-144 BUN/Creatinine Ratio 15 (Normal) Range: 11-26 eGFR If Africn Am 88 mL/min/1.73 (Normal) eGFR If NonAfricn Am 77 mL/min/1.73 (Normal) Creatinine, Serum 0.78 mg/dL (Normal) Range: 0.57-1.00 BUN 12 mg/dL (Normal) Range: 8-27 Glucose, Serum 92 mg/dL (Normal) Range: 65-99 03-Gqj-655240:09 Lipid Panel (89509) Comments: PATIENT WAS FASTINGPERFORMED BY: Runnit [facility] [id number] LDL/HDL Ratio 3.7 {ratio_units} (Abnormal) Range: 0.0-3.2 LDL Cholesterol Calc 187 mg/dL (Abnormal) Range: 0-99 VLDL Cholesterol Tay 40 mg/dL (Normal) Range: 5-40 Cholesterol, Total 278 mg/dL (Abnormal) Range: 100-199 HDL Cholesterol 51 mg/dL (Normal) Comments: According to ATP-III Guidelines, HDL-C >59 mg/dL is considered anegative risk factor for CHD. Triglycerides 201 mg/dL (Abnormal) Range: 0-149 88-Ses-512276:03 METABOLIC PANEL, Comments: PATIENT WAS FASTINGPERFORMED BY: [employer]N6370 [facility] [id number] Information: [id number] COMPREHENSIVE (94048) ALT (SGPT) 21 [iU]/L (Normal) Range: 0-32 AST (SGOT) 25 [iU]/L (Normal) Range: 0-40 Alkaline Phosphatase, S 112 [iU]/L (Normal) Range: 25-165 Bilirubin, Total 0.4 mg/dL (Normal) Range: 0.0-1.2 A/G Ratio 1.7 (Normal) Range: 1.1-2.5 Globulin, Total 2.6 g/dL (Normal) Range: 1.5-4.5 Albumin, Serum 4.4 g/dL (Normal) Range: 3.5-4.8 Protein, Total, Serum 7.0 g/dL (Normal) Range: 6.0-8.5 Calcium, Serum 9.3 mg/dL (Normal) Range: 8.6-10.2 Carbon Dioxide, Total 25 mmol/L (Normal) Range: 20-32 Chloride, Serum 103 mmol/L (Normal) Range: 97-108 Potassium, Serum 3.9 mmol/L (Normal) Range: 3.5-5.2 Sodium, Serum 142 mmol/L (Normal) Range: 134-144 BUN/Creatinine Ratio 10 (Abnormal) Range: 11-26 eGFR If Africn Am 88 mL/min/1.73 (Normal) eGFR If NonAfricn Am 76 mL/min/1.73 (Normal) Creatinine, Serum 0.79 mg/dL (Normal) Range: 0.57-1.00 BUN 8 mg/dL (Normal) Range: 8-27 Glucose, Serum 84 mg/dL (Normal) Range: 65-99 42-Yyd-598244:03 CBC (AUTO) (50726) Comments: PATIENT WAS FASTINGPERFORMED BY: [facility] UnionHijgzi2241 [facility] [id number] Platelets 212 {x10E3/uL} (Normal) Range: 140-415 MCHC 35.4 g/dL (Normal) Range: 31.5-35.7 RDW 13.6 % (Normal) Range: 12.3-15.4 MCH 31.7 pg (Normal) Range: 26.6-33.0 MCV 90 fL (Normal) Range: 79-97 Hematocrit 42.4 % (Normal) Range: 34.0-46.6 Hemoglobin 15.0 g/dL (Normal) Range: 11.1-15.9 RBC 4.73 {x10E6/uL} (Normal) Range: 3.77-5.28 WBC 6.2 {x10E3/uL} (Normal) Range: 4.0-10.5 :03 Vitamin D Hydroxy (81913) Comments: PATIENT WAS FASTINGPERFORMED BY: [facility]6370 [facility] [id number] Vitamin D, 25-Hydroxy 44.6 ng/mL (Normal) Range: 30.0-100.0 Comments: Vitamin D deficiency has been defined by the [place] and an Endocrine Society practice guideline as alevel of serum 25-OH vitamin D less than 20 ng/mL (1,2).The Endocrine Society went on to further define vitamin Dinsufficiency as a level between 21 and 29 ng/mL (2).1. IOM ([place]). 2010. Dietary reference intakes for calcium and D. [place]: The National Academies Press.2. Benjamin MF, Lisa CHRIS, Roland CALL, et al. Evaluation, treatment, and prevention of vitamin D deficiency: an Endocrine Society clinical practice guideline. JCEM. 2010; 96(7):1911-30. :03 TSH (64527) Comments: PATIENT WAS FASTINGPERFORMED BY: [facility]6370 [facility] [id number] TSH 4.290 {uIU/mL} (Normal) Range: 0.450-4.500 :03 HEPATIC FUNCTION PANEL Comments: PATIENT WAS FASTINGPERFORMED BY: [facility]6370 [facility] [id number] (27625) Bilirubin, Direct 0.11 mg/dL (Normal) Range: 0.00-0.40 :03 LIPID PANEL (72906) Comments: PATIENT WAS FASTINGPERFORMED BY: [facility] UnionCbnwhg3012 [facility] [id number] VLDL Cholesterol Tay VLDLCH mg/dL (Normal) Range: 5-40 Comments: The calculation for the VLDL cholesterol is not valid whentriglyceride level is >400 mg/dL.Triglyceride result indicated is too high for an accurate LDLcholesterol estimation. HDL Cholesterol 38 mg/dL (Abnormal) Comments: According to ATP-III Guidelines, HDL-C >59 mg/dL is considered anegative risk factor for CHD. Triglycerides 447 mg/dL (Abnormal) Range: 0-149 Cholesterol, Total 225 mg/dL (Abnormal) Range: 100-199 59-Lsr-160842:36 Pathology Report Comments: PERFORMED BY: KWCYT [facility] Yyyg50365 [facility] [id number] BY: Bello# [facility] Mskxvbtgd102 [facility] [id number] 2070Clinical Information: [id number] See MATER Comments: Material submitted: .PUNCH BIOPSY R UPPER BACKClinical history: .TO BE READ BY DERMPATH Note (Normal) Diagnosis:INTRADERMAL NEVUS WITH CONGENITAL FEATURES.COK/03/30/2012Electronically david d: .Luma Pereira MD, DermatopathologistGross description: .SUBMITTED IN FORMALIN LABELED CRIS BRINK RIGHT UPPERBACK ON THE CONTAINER AND BACK ON THE REQUISITION IS A FRAGMENTOF CHRIS/YELLOW TISSUE MEASURING 0.5 X 0.5 X 0.2 CM. THE MARGINSARE INKED GREEN. THE SPECIMEN IS BISECTED AND SUBMITTED IN TOT O.XJW/JASPathologist provided ICD-9:216.5CPT .599589 36-Hom-65457:37 LIPID PANEL (52382) Comments: PATIENT WAS FASTINGPERFORMED BY: MARJ [facility] Reupcf3648 [facility] [id number] Information: [id number] LDL Cholesterol Calc 181 mg/dL (Abnormal) Range: 0-99 LDL/HDL Ratio 3.8 {ratio_units} (Abnormal) Range: 0.0-3.2 VLDL Cholesterol Tay 43 mg/dL (Abnormal) Range: 5-40 HDL Cholesterol 48 mg/dL (Normal) Comments: According to ATP-III Guidelines, HDL-C >59 mg/dL is considered anegative risk factor for CHD. Triglycerides 214 mg/dL (Abnormal) Range: 0-149 Cholesterol, Total 272 mg/dL (Abnormal) Range: 100-199 :37 TSH (56709) Comments: PATIENT WAS FASTINGPERFORMED BY: [facility] UnionCpnwav0251 [facility] [id number] TSH 6.720 {uIU/mL} (Abnormal) Range: 0.450-4.500 :37 Vitamin D Hydroxy (95539) Comments: PATIENT WAS FASTINGPERFORMED BY: [facility] Oiwqlh1422 [facility] [id number] Vitamin D, 25-Hydroxy 41.6 ng/mL (Normal) Range: 30.0-100.0 Comments: Vitamin D deficiency has been defined by the [place] and an Endocrine Society practice guideline as alevel of serum 25-OH vitamin D less than 20 ng/mL (1,2).The Endocrine Society went on to further define vitamin Dinsufficiency as a level between 21 and 29 ng/mL (2).1. IOM ([place] [employer]). 2010. Dietary reference intakes for calcium and D. [place]: The National Academies Press.2. Benjamin MF, Lisa NC, Roland CALL, et al. Evaluation, treatment, and prevention of vitamin D deficiency: an Endocrine Society clinical practice guideline. JCEM. 2010; 96(7):1911-30. : VITD 38.6 ng/mL (Normal) Range: 30.0-100.0 01 Comments: Vitamin D deficiency has been defined by the [place] and an Endocrine Society practice guideline as alevel of serum 25-OH vitamin D less than 20 ng/mL (1,2).The Endocrine Society went on to further define vitamin Dinsufficiency as a level between 21 and 29 ng/mL (2).1. IOM ([place] [employer]). 2010. Dietary reference intakes for calcium and D. [place]: The National Academies Press.2. Benjamin MF, Lisa CHRIS, Roland CALL, et al. Evaluation, treatment, and prevention of vitamin D deficiency: an Endocrine Society clinical practice guideline. JCEM. 2010; 96): 1911-30.Performed at: - [facility] [id number] Director: Mohini Barrera MD, Phone: [phone] FREE T3 2.7 pg/mL (Normal) Range: 2.18-3.98 :46 HGB A1C 5.3 % (Normal) Range: 4.2-6.3 :46 :46 LIPID VLDL 52 mg/dL (Abnormal) Range: 5-40 LDL 159 mg/dL (Abnormal) Range: 0-130 HDL 44 mg/dL (Normal) Comments: Reference Range HDL <40 mg/dL Low HDL Cholesterol HDL >or= 60 mg/dL High HDL Cholesterol TRIG 259 mg/dL (Abnormal) Comments: Serum Triglycerides Reference Interval Normal <150 mg/dL Borderline high 150 - 199 mg/dL High 200 - 499 mg/dL Very High > or = 500 mg/dL CHOL 255 mg/dL (Abnormal) Comments: <200 mg/dL Desirable 200-240 mg/dL Borderline >240 mg/dL High Risk :46 T4 FREE DIRECT 0.85 ng/dL (Normal) Range: 0.76-1.46 :46 TSH 3.27 {uIU/mL} (Normal) Range: 0.358-3.74 :46 VIT D,25 80742 37.2 ng/mL (Normal) Range: 30.0-100.0 Comments: Vitamin D deficiency has been defined by the [place] [employer] and an Endocrine Society practice guideline as alevel of serum 25-OH vitamin D less than 20 ng/mL (1,2).The Endocrine Society went on to further define vitamin Dinsufficiency as a level between 21 and 29 ng/mL (2).1. IOM ([place]). 2011. Dietary reference intakes for calcium and D. [place]: The National Academies Press.2. Benjamin MF, Lisa CHRIS, Roland CALL, et al. Evaluation, treatment, and prevention of vitamin D deficiency: an Endocrine Society clinical practice guideline. JCEM. 2010; 96(7): 1911-30.Performed at: [facility] [id number] Director: Mohini Barrera MD, Phone: [employer] :33 CELIAC [id number] ENDOMYSIAL IGA SeeNote (Normal) Comments: Result: Negative tTG IGA <2 U/mL (Normal) Range: 0-3 Comments: Negative 0 - 3 Weak Positive 4 - 10 Positive >10 . Tissue Transglutaminase (tTG) has been identified as the endomysial antigen. Studies have demonstr- ated that endomysial IgA antibo dies have over 99% specificity for gluten sensitive enteropathy. IMMUNO A 259 mg/dL (Normal) Range: 70-400 Comments: Performed at: [facility] [id number] Director: Mohini Barrera MD, Phone: [phone] :[phone] BREAST UNILATERAL Radiology See Note Comments: REPORT CLINICAL:Female, 70 years old. Abnormal mammogram EXAMINATION:TARGETED LEFT BREAST ULTRASOUND TE Report (Normal) CHNIQUE:High resolution real time linear images of the alveolar area of the leftbreast were obtained. COMPARISON:May 23, 2010. FINDINGS:And 12 o'clock, 3 cm from the nipple there is a well-defined sharplymarginated echolucent nodule measuring 5 x 6 x 4 mm. This demonstratescharacteristics of a benign cyst. This corresponds to a new densityidentified in the main area of May 23, 2010. IMPRESSI ON:There is a simple cyst identified at 12 o'clock 3 cm from the nipple. Thefinal assessment of the mammogram of May 23, 2010 becomes BI-RADScategory two. Benign findings. Dictated on 05/29/10 0 934 by LEONILA HAMTranscribed on 05/29/10 154 by ITS IMPORTSign by LEONILA HAM on 05/29/101543 Sign by: LEONILA HAM 05-Vjq-380427:36 BILAT SCRN DIGITAL & CAD Radiology See Note Comments: REPORT MAMMOGRAPHY - BILATERALSCREENING INDICATION:Routine annual screening examination. PERTINENT HIST Report (Normal) ORY:Non-contributory. TECHNIQUE:Digital examination. Mediolateral oblique (MLO) and craniocaudad (CC)views of both breasts were obtained. CAD was performed on this study. COMPARISON:April 29, 2000 and November 05, 2002 FINDINGS:The breast composition is composed of scattered fibroglandular densities.There is a 5-mm density in the mid left breast not seen previously.Ultrasound is suggested.There are n o irregular or spiculated masses or suspiciousmicrocalcifications. No other significant abnormalities are identified. IMPRESSION:There is a 5-mm density in the mid left breast ultrasound is recommended. ASSESSMENT CATEGORY:BIRADS Category 0: Need Additional Imaging Evaluation. A letter regarding these results will [facility] the [facility]. Approximately 10% of breast cancers are not det ected by mammography. Anormal mammogram should not delay biopsy of a clinically suspiciousabnormality. Dictated on 05/23/10 1059 by LEONILA HAMTranscribed on 05/24/102135 by ITS IMPORTSign by LEONILA FRANCIS on 05/24/102136 Sign by: LEONILA HAM 40-Toj-837341:35 DEXA BONE DENSITY STUDY (HP) Radiology Report See Note (Normal) Comments: CLINICAL:Well woman exam EXAMINATION:DUAL ENERGY X-RAY ABSORPTIOMETRY / DEXA. TECHNIQUE:Bone Density Measurements (BMD) of lumbar spine and bilateral hips wereobtained using a [employer].. COMPARISON:07/22/2006 FINDINGS: Lumbar Spine (L1-L4): g/cm2 (1.002) / T-score (-1.5) / Z-score (0.2)Left Femur Total: g/cm2 (0.883) / T- score (-1.0) / Z-score (0.4)Right Femur Total: g/cm2 (0.831) / T-score (-1.5) / Z-score (0.9) Additional Abnormal T-Scores:Lumbar Spine (L1): g/cm2 (0.887) / T-score (-2.0) / Z-score (-0.4)Left Femur neck: g/cm2 (0.778) / T-score (-1.9) / Z-score (-0.3)Right Femur neck: g/cm2 (0.831) / T-score (-1.5) / Z-score (0.1) The T-Scores on the most recent examination were: Lumbar Spine (L1-L4): 0.911 which represents an improvement of 10%.Left Femur neck: 0.838 which represents a worsening of 12.5 %. IMPRESSION:The patient is considered osteopenic, as outlined above, according toWorldHealth Organization (WHO) criteria. Fracture ris k is moderate. Thebonemineral density in comparison to baseline 11/01/1997 demonstrate animprovement of the lumbar spine at 7.5% and a marked worsening of theleftfemoral neck of 18.8% , therefore a short er follow-up examination withinone year to reassess the trend may be advantageous. Reference Information:The T-score is the number of standard deviations above or below thestandard which is normal for y oung adults at their peak bone mineraldensity. The World Health Organization (WHO) interprets the T-scores asfollows: Above -1 Normal bone densityBetween -1 and -2.5 OsteopeniaEqual to / or below -2.5 Osteoporosis As a practical clinical guideline, osteopenia may be graded as follows:Mild -1 through -1.5Moderate -1.6 through - 2.0Severe -2.1 through -2.4 The Z-score is th e number of standard deviations above or below age-matchedcontrols. A Z-score of less than -1.5 would be considered abnormal. References:1. NIH Osteoporosis and Related Bone Diseases http://www.osteo.o rg2. International Society for Clinical Densitometry http://www.iscd.org3. National Osteoporosis Foundation http://www.nof.org Dictated on 05/23/10 1043 by Tushar QuezadaxTranscribed on 05/23/10 104 3 by Bakari OLMEDO by Kandy Quezada on 05/24/10 0847 Sign by: Kandy Quezada 49-Smo-595351:01 LQD PAP [id number] Comments: CYTOLOGY INFORMATION:- CLINICAL INFORMATION: - DATE LMP/MENOPAUSE: - COLLECTION VIAL: Thin Prep Vial- AUDIT LEAD SOURCE: - COLLECTION TECHNIQUE: PAPSMR Comment (Normal) Comments: The Pap smear is a screening test designed to aid in thedetection of premalignant and malignant conditions of theuterine cervix. It is not a diagnostic procedure andshould not be used as the sole means of detecting cervicalcancer. Both false-positive and false-negative reports dooccur. .The HPV DNA reflex criteria were not met with this speci menresult therefore, no HPV testing was performed. .Performed at: [address] [id number] Director: Coni Luo MD, Phone: [phone] COMM . (Normal) DIAGN Comment (Normal) Comments: NEGATIVE FOR INTRAEPITHELIAL LESION AND MALIGNANCY.CELLULAR CHANGES ASSOCIATED WITH ATROPHY ARE PRESENT.Satisfactory for evaluation. Endocervical component may not bedistinguished in cases of atrophy.Yaz Hernandez, Cpa Tax ([facility]) :13 VIT D,25 10375 35.2 ng/mL (Normal) Range: 32.0-100.0 Comments: Recent studies consider the lower limit of 32.0 ng/mL to amy threshold for optimal health.Mitchell VILLATORO. J Nutr. 2004;135(2):317-22.Performed at: - [facility] [place] [id number] Director: Mohini Barrera MD, Phone: [phone] :[phone] PTH,Intact 54 pg/mL (Normal) Range: 14-72 :10 TSH 2.88 {uIU/mL} (Normal) Range: 0.358-3.74 :10 PHOS 2.9 mg/dL (Normal) Range: 2.5-4.9 :10 CA 9.1 mg/dL (Normal) Range: 8.5-10.1 :10 SERUM CRE & GFR EST GFR 76 mL/min (Normal) EST GFR - AA 92 mL/min (Normal) CREAT,SERUM 0.8 mg/dL (Normal) Range: 0.6-1.0 :09 LIPID HDL 41 mg/dL (Normal) Comments: Reference Range HDL <40 mg/dL Low HDL Cholesterol HDL >or= 60 mg/dL High HDL Cholesterol LDL 145 mg/dL (Abnormal) Range: 0-130 TRIG 185 mg/dL (Normal) Comments: Serum Triglycerides Reference Interval Normal <150 mg/dL Borderline high 150 - 199 mg/dL High 200 - 499 mg/dL Very High > or = 500 mg/dL VLDL 37 mg/dL (Normal) Range: 5-40 CHOL 223 mg/dL (Abnormal) Comments: <200 mg/dL Desirable 200-240 mg/dL Borderline >240 mg/dL High Risk :09 LIVER D BILI 0.08 mg/dL (Normal) Range: 0.00-0.30 T BILI 0.50 mg/dL (Normal) Range: 0.00-1.00 ALB 3.8 g/dL (Normal) Range: 3.4-5.0 ALK P 101 U/L (Normal) Range: 50-136 ALT 21 U/L (Normal) Range: 12-78 AST 19 U/L (Normal) Range: 15-37 T PROT 6.9 g/dL (Normal) Range: 6.4-8.2 :57 CBCD,SMEAR DIFF RED CELL MORPH SeeNote {NORMAL} (Normal) Comments: Result: NORM C+C ABSOLUTE NEUT 3.1 3/uL (Normal) Range: 2.0-7.7 BAND 7 % (Abnormal) Range: 0-5 CELLS COUNTED 100 (Normal) EOS 4 % (Normal) Range: 0-5 LYMPH 22 % (Normal) Range: 19-41 MCH 32.4 pg (Abnormal) Range: 27.0-32.0 MCHC 34.3 g/dL (Normal) Range: 32-36 MONOCYTE 12 % (Abnormal) Range: 0-10 PLT 222 K/mm3 (Normal) Range: 150-450 PLT EST SeeNote (Normal) Comments: Result: ADEQUATE RDW 13.0 % (Normal) Range: 11.6-14.6 SEGS 55 % (Normal) Range: 47-70 HCT 40.6 % (Normal) Range: 37-47 HGB 13.9 g/dL (Normal) Range: 12.0-16.0 MCV 94.6 fL (Normal) Range: 81-99 RBC 4.29 {M/mm3} (Normal) Range: 4.2-5.4 WBC 5.6 K/mm3 (Normal) Range: 4.4-11.0 :57 TSH 2.77 {uIU/mL} (Normal) Range: 0.358-3.74 :50 VIT D,25 08661 37.7 ng/mL (Normal) Range: 32.0-100.0 Comments: Recent studies consider the lower limit of 32.0 ng/mL to amy threshold for optimal health.Mitchell VILLATORO. J Nutr. 2004;135(2):317-22.Performed At: [facility] [place], [place] [id number] 16-Oeo-373863:01 THYROID (HP) Radiology Report See Note (Normal) Comments: Exam Number: [id number] ULTRASOUND OF THE THYROID Multiple views of the thyroid gland were obtained. Comparison is madewith the prior examination dated August 10, 2008. HISTORYThis is a 69-ye ar-old femal e patient with history of goiter. FINDINGSThe right lobe of the thyroid measures 3.8 cm in longitudinaldimension x 1.1 cm in AP dimension x 1.4 cm in transverse dimension.It is of heterogeneous echotext ure. There is evidence of a 4 x 4 mmhypoechoic nodule in the inferior medial aspect of the right lobe andthis is unchanged. The left lobe measures 4.3 cm in longitudinal dimension x 1.1 cm in APdimensi on x 1.5 cm in transverse dimension. It is of heterogeneousechotexture. Once again, there is evidence of a 1.5 x 1 x 0.6 cmhypoechoic nodule in the mid medial aspect of the left lobe. This hasincrease d in size since prior examination where it measured6 x 5 x 5 mm. There is also evidence of a 3 x 2 x 3 mm hypoechoicnodule in the lateral aspect of the isthmus on the left side. This isunchanged. IMPR ESSIONIncrease in size of the hypoechoic nodule seen in the mid medialaspect of the left lobe of the thyroid. Reported By: WAYNE JUAREZ 61-Bxt-35178:54 CBCD,SMEAR DIFF EOS 5 % (Normal) Range: 0-5 PLT EST SeeNote (Normal) Comments: Result: ADEQUATE RED CELL MORPH SeeNote {NORMAL} (Normal) Comments: Result: NORM C+C BAND 2 % (Normal) Range: 0-5 CELLS COUNTED 100 (Normal) HCT 40.5 % (Normal) Range: 37-47 HGB 14.0 g/dL (Normal) Range: 12.0-16.0 LYMPH 37 % (Normal) Range: 19-41 MCH 32.0 pg (Normal) Range: 27.0-32.0 MCHC 34.5 g/dL (Normal) Range: 32-36 MCV 92.8 fL (Normal) Range: 81-99 MONOCYTE 13 % (Abnormal) Range: 0-10 PLT 232 K/mm3 (Normal) Range: 150-450 RBC 4.36 {M/mm3} (Normal) Range: 4.2-5.4 RDW 12.5 % (Normal) Range: 11.6-14.6 SEGS 43 % (Abnormal) Range: 47-70 WBC 4.7 K/mm3 (Normal) Range: 4.4-11.0 :54 COMP METABOLIC CL 106 mmol/L (Normal) Range: 98-107 CO2 29.0 mmol/L (Normal) Range: 21.0-32.0 GAP 7 (Normal) Range: 5-15 K 4.5 mmol/L (Normal) Range: 3.5-5.1 NA 142 mmol/L (Normal) Range: 136-145 T BILI 0.30 mg/dL (Normal) Range: 0.00-1.00 A/G 1.1 {RATIO} (Normal) Range: 0.9-2.4 ALB 3.8 g/dL (Normal) Range: 3.4-5.0 ALK P 109 U/L (Normal) Range: 50-136 ALT 25 U/L (Normal) Range: 12-78 AST 17 U/L (Normal) Range: 15-37 BUN 13 mg/dL (Normal) Range: 7-18 BUN/CRE 14.4 {RATIO} (Normal) Range: 10-20 CA 8.5 mg/dL (Normal) Range: 8.5-10.1 CREAT,SERUM 0.9 mg/dL (Normal) Range: 0.6-1.0 EST GFR 66 mL/min (Normal) EST GFR - AA 80 mL/min (Normal) GLOB 3.4 g/dL (Normal) Range: 2.7-4.2 T PROT 7.2 g/dL (Normal) Range: 6.4-8.2 GLU 84 mg/dL (Normal) Range: 70-110 :54 LIPID HDL 47 mg/dL (Normal) Comments: Reference RangeHDL <40 mg/dL Low HDL CholesterolHDL >or= 60 mg/dL High HDL Cholesterol LDL 141 mg/dL (Abnormal) Range: 0-130 VLDL 39 mg/dL (Normal) Range: 5-40 CHOL 227 mg/dL (Abnormal) Comments: <200 mg/dL Oiutdskzb196-524 mg/dL Borderline>240 mg/dL High Risk TRIG 195 mg/dL (Normal) Comments: Serum Triglycerides Reference IntervalNormal <150 mg/dLBorderline high 150 - 199 mg/dLHigh 200 - 499 mg/ dLVery High > or = 500 mg/dL :54 TSH 3.26 {uIU/mL} (Normal) Range: 0.358-3.74 :54 VIT D,25 36844 30.9 ng/mL (Abnormal) Range: 32.0-100.0 Comments: Recent studies consider the lower limit of 32.0 ng/mL to amy threshold for optimal health.Mitchell VILLATORO. J Nutr. 2004;135(2):317-22.Performed At: [facility] [id number] [place], [place] [id number] 97-Azr-174343:47 LIVER ALB 3.8 g/dL (Normal) Range: 3.4-5.0 ALK P 112 U/L (Normal) Range: 50-136 ALT 34 U/L (Normal) Range: 30-65 AST 24 U/L (Normal) Range: 15-37 D BILI 0.07 mg/dL (Normal) Range: 0.00-0.30 T BILI 0.32 mg/dL (Normal) Range: 0.00-1.00 T PROT 7.2 g/dL (Normal) Range: 6.4-8.2 56-Dio-472350:47 TSH 2.33 {uIU/mL} (Normal) Range: 0.34-4.82 47-Vyd-583911:19 THYROID (HP) Radiology Report See Note (Normal) Comments: Exam Number: [id number] THYROID ULTRASOUND HISTORYGoiter. High-resolution real-time linear images were obtained. The currentstudy is compared to the examination of March 18, 2007. [facility], the right lobe of the thyroid is normal in sizemeasuring 4.1 x 1.4 x 0.8 cm. The left lobe is upper normal in sizemeasuring 4.6 x 1.3 x 1.3 cm. There is only minimal change in themeasurements of the thyroid lobes obtained. In the inferior aspect ofthe right thyroid lobe is a nodule measuring 3 x 3 x 3 mm. Thismeasured 2 x 3 x 3 mm previously. In the mid-left thyroid lobe is anodule measur ing 6 x 5 x 5 mm compared to 11 x 5 x 6 mm previously. The isthmus measures 6 mm in thickness which is above the usual limitsof normal. The isthmus measured 7 mm in thickness on the previousstudy. In the left side of the isthmus is a nodule measuring 4 x 3 x2 mm compared to 5 x 2 x 2 mm on the previous study. IMPRESSIONThe thyroid is upper normal in size. There are a few nodules present,1 of whic h is smaller than on the previous examination of March. The findings are most compatible with multinodular goiter. Clinical followup is recommended. Reported By: LEONILA HAM M.D. :39 C-REACTIVE PROT 13.53 mg/L (Abnormal) Range: 0.0-6.0 Comments: Test performed using the Dimension C-Reactive ProteinExtended Range assay method. This assay meets the AHA/CDC 2003 recommendations fordetermining patients at high risk for cardiovasculardisease. Reference: High risk CRP >3.0 mg/L :39 LIPID CHOL 212 mg/dL (Abnormal) Comments: <200 mg/dL Desirable 200-240 mg/dL Borderline >240 mg/dL High Risk HDL 37 mg/dL (Normal) Comments: Reference Range HDL <40 mg/dL Low HDL Cholesterol HDL >or= 60 mg/dL High HDL Cholesterol LDL 140 mg/dL (Abnormal) Range: 0-130 TRIG 175 mg/dL (Normal) Comments: Serum Triglycerides Reference Interval Normal <150 mg/dL Borderline high 150 - 199 mg/dL High 200 - 499 mg/dL Very High > or = 500 mg/dL VLDL 35 mg/dL (Normal) Range: 5-40 :39 VITD 1,25 37892 27.2 pg/mL (Normal) Range: 15.9-55.6 Comments: Performed At: [facility] [id number] 06-Txr-[id number]:23 C-REACTIVE PROT 3.40 mg/L (Normal) Range: 0.0-6.0 Comments: Test performed using the Dimension C-Reactive ProteinExtended Range assay method. This assay meets the AHA/CDC 2003 recommendations fordetermining patients at high risk for cardiovasculardisease. Reference: High risk CRP >3.0 mg/L 69-Aqz-662252:23 VITD 1,25 45924 47.1 pg/mL (Normal) Range: 15.9-55.6 Comments: Performed At: [facility] [id number] 1-Uck-518494:20 LIPID CHOL 226 mg/dL (Abnormal) Comments: <200 mg/dL Desirable 200-240 mg/dL Borderline >240 mg/dL High Risk HDL 39 mg/dL (Normal) Comments: Reference Range HDL <40 mg/dL Low HDL Cholesterol HDL >or= 60 mg/dL High HDL Cholesterol LDL 130 mg/dL (Normal) Range: 0-130 TRIG 287 mg/dL (Abnormal) Comments: Serum Triglycerides Reference Interval Normal <150 mg/dL Borderline high 150 - 199 mg/dL High 200 - 499 mg/dL Very High > or = 500 mg/dL VLDL 57 mg/dL (Abnormal) Range: 5-40 0-Mbr-335597:01 THYROID () Radiology Report See Note (Normal) Comments: Exam Number: [id number] THYROID ULTRASOUND HISTORYGoiter. High-resolution real-time linear images were obtained. The currentstudy is compared to the examination of March 18, 2007. The thyroidis withi n normal limits in size. The right thyroid lobe measures 4.1x 1.1 x 1.6 cm. The left thyroid lobe measures 4.6 x 1.3 x 1.5 cm.The thyroid lobes are, therefore, normal in size. The isthmus isincreased in thickness at 7 mm compared to 6 mm on the previous study.The thyroid is diffusely inhomogeneous. In the inferior aspect of theright thyroid lobe there is a hyperechoic nodule measuring 2 x 3 x 3mm. This can be located on the previous images and measured 3 x 3 x 3mm at that time. No focal nodule was identified on the left at thetime of the previous examination. On the current study, there is ah yperechoic nodule identified on the left measuring 11 x 5 x 6 mm.There is also a hyperechoic nodule identified in the isthmus to theleft. This measures 5 x 2 x 2 mm. The nodule in the left lobe of the thyroid is questionably identified on the previous examination. Itmay have been present and not identified as a focal finding due to theextent of inhomogeneity. The small nodule in the isthmus is notv isualized on the previous images. The findings are most likely torepresent multinodular goiter. Because of the nodules now seen in theleft thyroid lobe and in the isthmus, a followup ultrasound in 6mo nths is suggested. IMPRESSION1. The thyroid lobes are within normal limits in size. The isthmusis moderately thickened.2. The echo texture of the thyroid is diffusely inhomogeneous.3. There is a sma ll nodule in the inferior aspect of the right lobeof the thyroid which has been seen previously and is unchanged.4. On the current study there is a focal nodule seen on the left. This can be questionab ly identified on the previous study and may havepresent and not identified as a focal nodule due to the degree ofinhomogeneity of adjacent parenchyma. The possibility that this is anew nodule, however, is not excluded.5. There is a new nodule in the thyroid isthmus.6. Because of the nodules now identified in the left thyroid lobe andin the isthmus, a followup ultrasound in 6 months is suggested. Reported By: LEONILA HAM M.D. 5-Bpd-916640:25 COMP METABOLIC A/G 1.4 {RATIO} (Normal) Range: 0.9-2.4 ALB 4.2 g/dL (Normal) Range: 3.4-5.0 ALK P 104 U/L (Normal) Range: 50-136 ALT 36 U/L (Normal) Range: 30-65 AST 23 U/L (Normal) Range: 15-37 BUN 16 mg/dL (Normal) Range: 7-18 BUN/CRE 17.8 {RATIO} (Normal) Range: 10-20 CA 9.4 mg/dL (Normal) Range: 8.5-10.1 CL 104 mmol/L (Normal) Range: 98-107 CO2 30.0 mmol/L (Normal) Range: 21.0-32.0 CREAT,SERUM 0.9 mg/dL (Normal) Range: 0.6-1.0 GAP 6 (Normal) Range: 5-15 GLOB 3.1 g/dL (Normal) Range: 2.7-4.2 GLU 88 mg/dL (Normal) Range: 70-110 K 4.1 mmol/L (Normal) Range: 3.5-5.1 NA 140 mmol/L (Normal) Range: 136-145 T BILI 0.58 mg/dL (Normal) Range: 0.00-1.00 T PROT 7.3 g/dL (Normal) Range: 6.4-8.2 7-Snq-139711:25 LIPID CHOL 209 mg/dL (Abnormal) Comments: <200 mg/dL Desirable 200-240 mg/dL Borderline >240 mg/dL High Risk HDL 40 mg/dL (Normal) Comments: Reference Range HDL <40 mg/dL Low HDL Cholesterol HDL >or= 60 mg/dL High HDL Cholesterol LDL 114 mg/dL (Normal) Range: 0-130 TRIG 275 mg/dL (Abnormal) Comments: Serum Triglycerides Reference Interval Normal <150 mg/dL Borderline high 150 - 199 mg/dL High 200 - 499 mg/dL Very High > or = 500 mg/dL VLDL 55 mg/dL (Abnormal) Range: 5-40 0-Mrx-379604:25 TSH 3.55 {uIU/mL} (Normal) Range: 0.34-4.82 2-Mkb-454654:20 Urinalysis, Office ([id number]) UA - BILIRUBIN Negative (Normal) UA - BLOOD Negative (Normal) UA - KETONES Negative mg/dL (Normal) UA - LEUKOCYTE ESTERASE Trace (Normal) UA - NITRITE Negative (Normal) UA - PH 6.0 (Normal) UA - PROTEIN Negative mg/dL (Normal) UA - SPECIFIC GRAVITY 1.005 (Normal) URINE UROBILINGN BAKARI TIMED Normal mg/dL (Normal) UA - GLUCOSE Negative (Normal) 76-Hcw-841618:37 THYROID () Radiology Report See Note (Normal) Comments: Exam Number: [id number] ULTRASOUND OF THE THYROID CLINICAL INDICATIONThyromegaly. COMPARISON July 22, 2006 The right and left lobes are again heterogeneous measuring 3.8 x 1.2 x1 cm and 3.4 x 1.1 x 0.8 cm. The isthmus is mildly thickened at 6 mm.Again, the gland is hypervascular. There is a 4-mm hyperechoic noduleinvolving the inferior pole of the right thyroid lobe, unchanged. IMPRESSIONThere i s no overall change in appearance of the thyroid. Reported By: RENE MCGRATH M.D. :40 COLON BX P-COLBX (Normal) Comments: OPERATION Colonoscopy with biopsy PRE-OPERATIVE DIAGNOSIS R/O adenoma of sigmoid polyp and R/O microscopic colitis of transverse colon TISSUE SUBMITTED A - Biopsy polyp R/O adenoma. B - Biopsy transv erse colon R/O microscopic colitis. MICROSCOPIC DIAGNOSIS A. Polyp sigmoid, biopsy: Fragments of colonic mucosa with focal changes suggestive of hyperplastic polyp. B. Transverse colon, biopsy: Frag ments of colonic mucosa, no pathologic diagnosis. SJ:misael 08/22/06 GROSS DESCRIPTION A - Received in formalin labeled with patient name and number and designated biopsy polyp sigmoid are two irreg ular fragments of light chris soft tissue that in aggregate measure 0.4 x 0.2 x 0.1 cm. The specimen is totally submitted in one cassette. B - Received in formalin labeled with patient name and num barbra and designated transverse colon biopsy are multiple irregular fragments of light chris soft tissue that in aggregate measure 0.5 x 0.3 x 0.1 cm. The specimen is totally submitted in one cassette. /SJ:misael 08/21/06 TC:1 REPORT SIGNED: STIVEN CROCKER 08/22/0623-Jul-200652-Uvo-176841:24 GLUP 105 mg/dL (Normal) Comments: GLU,2HPPG 75gm GLUC PPG GLUP from 0221:S37521N. :06 T3UP T3 UPTAKE 33 % (Normal) Range: 30-39 T7 (FTI) 2.4 (Normal) Range: 1.4-4.5 :06 T4 THYROXIN 7.3 ug/dL (Normal) Range: 4.8-13.9 :06 TSH 2.96 {uIU/mL} (Normal) Range: 0.34-4.82 :46 CBCD BASO% 0.7 % (Normal) Range: 0-1 EO% 2.9 % (Normal) Range: 0-5 HCT 40.1 % (Normal) Range: 37-47 HGB 13.9 g/dL (Normal) Range: 12.0-16.0 LY% 30.4 % (Normal) Range: 19-41 MCH 31.6 pg (Normal) Range: 27.0-32.0 MCHC 34.8 g/dL (Normal) Range: 32-36 MCV 91.0 fL (Normal) Range: 81-99 MONO% 10.8 % (Abnormal) Range: 0-10 MPV 7.4 fL (Normal) Range: 6.5-12.0 NEUT% 55.2 % (Normal) Range: 47-70 PLT 248 K/mm3 (Normal) Range: 150-450 RBC 4.40 {M/mm3} (Normal) Range: 4.2-5.4 RDW 12.1 % (Normal) Range: 11.6-14.6 WBC 5.2 K/mm3 (Normal) Range: 4.4-11.0 :46 COMP METABOLIC A/G 0.9 {RATIO} (Normal) Range: 0.9-2.4 ALB 3.5 g/dL (Normal) Range: 3.4-5.0 ALK P 134 U/L (Normal) Range: 50-136 ALT 39 [iU]/L (Normal) Range: 30-65 AST 23 U/L (Normal) Range: 15-37 BUN 10 mg/dL (Normal) Range: 7-18 BUN/CRE 11.1 {RATIO} (Normal) Range: 10-20 CA 8.6 mg/dL (Normal) Range: 8.5-10.1 CL 106 mmol/L (Normal) Range: 98-107 CO2 29.4 mmol/L (Abnormal) Range: 22.0-29.0 CREAT,SERUM 0.9 mg/dL (Normal) Range: 0.6-1.0 GAP 6 (Normal) Range: 5-15 GLOB 3.7 g/dL (Abnormal) Range: 2.3-3.5 GLU 87 mg/dL (Normal) Range: 70-110 K 3.8 mmol/L (Normal) Range: 3.5-5.1 NA 141 mmol/L (Normal) Range: 136-145 T BILI 0.52 mg/dL (Normal) Range: 0.00-1.00 T PROT 7.2 g/dL (Normal) Range: 6.4-8.2 :46 COMPLETE UA BACTERIA 0 SEEN {/hpf} (Normal) BILIRUBIN URINE SeeNote (Normal) Comments: Result: NEGATIVE CLARITY CLEAR (Normal) COLOR YELLOW (Normal) GLUCOSE, UR SeeNote (Normal) Comments: Result: NEGATIVE KETONE UR SeeNote mg/dL (Normal) Comments: Result: NEGATIVE LEUK ESTERASE TRACE (Abnormal) MUCUS, URINE 0 SEEN {/hpf} (Normal) NITRITE UR SeeNote (Normal) Comments: Result: NEGATIVE OCCULT BLOOD-UR SeeNote (Normal) Comments: Result: NEGATIVE pH UR 5.0 (Normal) Range: 5.0-8.0 PROT DIPSTX SeeNote (Normal) Comments: Result: NEGATIVE RBC-UA 0 SEEN {/hpf} (Normal) Range: 0-5 SP.GR. DIPSTX 1.025 (Normal) Range: 1.002-1.030 SQUAM EPI 0 SEEN {/hpf} (Normal) Range: 5-10 UROBILI 0.2 EU/dl (Normal) Range: 0.2 - 1.0 WBC 0 SEEN {/hpf} (Normal) Range: 0-5 38-Ten-321185:46 MICROALB:CRE UR MALB:CREAT 6.2 {mg/g_CRE} (Normal) MICROALBUMIN,UR 11.7 mg/L (Normal) UR CREAT 189.6 mg/dL (Normal) 51-Ngh-188577:46 PFLIP CHOL 210 mg/dL (Abnormal) Comments: <200 mg/dL Desirable 200-240 mg/dL Borderline >240 mg/dL High Risk HDL 39 mg/dL (Normal) Comments: Reference Range HDL <40 mg/dL Low HDL Cholesterol HDL >or= 60 mg/dL High HDL Cholesterol LDL 123 mg/dL (Normal) Range: 0-130 TRIG 242 mg/dL (Abnormal) Comments: Serum Triglycerides Reference Interval Normal <150 mg/dL Borderline high 150 - 199 mg/dL High 200 - 499 mg/dL Very High > or = 500 mg/dL VLDL 48 mg/dL (Abnormal) Range: 5-40 08-Obt-687176:46 TSH 3.55 {uIU/mL} (Normal) Range: 0.34-4.82 Plan of Care Name Dates Details Instructions Hypercholesterolemia : Cholesterol mgmt Indication: Hypercholesterolemia GERD (gastroesophageal reflux disease) : GERD Education Indication: GERD (gastroesophageal reflux disease) Soft tissue mass : Eprescribed prescriptions (G8553) Indication: Soft tissue mass Hypothyroidism : Follow up in 6 months Indication: Hypothyroidism Hypercholesterolemia : Cholesterol mgmt Indication: Hypercholesterolemia GERD (gastroesophageal reflux disease) : Health Maintenance: Controlling Cholesterol: blood vessels Indication: GERD (gastroesophageal reflux disease) GERD (gastroesophageal reflux disease) : Eprescribed prescriptions (G8553) Indication: GERD (gastroesophageal reflux disease) Sebaceous Cyst : Shave Biopsy with Epi Indication: Sebaceous Cyst GERD (gastroesophageal reflux disease) : Follow up in 6 months- do ekg Indication: GERD (gastroesophageal reflux disease) GERD (gastroesophageal reflux disease) : Eprescribed prescriptions (G8553) Indication: GERD (gastroesophageal reflux disease) GERD (gastroesophageal reflux disease) : Heartburn *: gerd Indication: GERD (gastroesophageal reflux disease) Hematuria : Eprescribed prescriptions (G8553) Indication: Hematuria Hematuria : Follow up in 1 week Indication: Hematuria Breast screening : Self breast exam Indication: Breast screening Well woman exam with routine gynecological exam : *Colon Cancer Screening Indication: Well woman exam with routine gynecological exam Well woman exam with routine gynecological exam : *Well Female Maintenance (KF) Indication: Well woman exam with routine gynecological exam Well woman exam with routine gynecological exam : Pap/Pelvic/Bimanual/Rectal/Breast Exam was done. Indication: Well woman exam with routine gynecological exam Hypothyroidism : Follow up in 6 months Indication: Hypothyroidism GERD (gastroesophageal reflux disease) : GERD Education Indication: GERD (gastroesophageal reflux disease) Hypercholesterolemia : Cholesterol mgmt Indication: Hypercholesterolemia Hypothyroidism : Follow up in 2 months Indication: Hypothyroidism Hypercholesterolemia : Reviewed Lab Indication: Hypercholesterolemia Osteoporosis : *Calcium Education (KF) Indication: Osteoporosis Hypercholesterolemia : Cholesterol mgmt Indication: Hypercholesterolemia Hypothyroidism : Eprescribed prescriptions (G8553) Indication: Hypothyroidism Hypothyroidism : Follow up in 4 months Indication: Hypothyroidism Osteoporosis : *Calcium Education (KF) Indication: Osteoporosis Hypercholesterolemia : Cholesterol mgmt Indication: Hypercholesterolemia Hypothyroidism : Continue Current Prescription(s) Indication: Hypothyroidism Hypercholesterolemia : Follow up in 4 months: do ekg Indication: Hypercholesterolemia Osteoporosis : *Calcium Education (KF) Indication: Osteoporosis Hypercholesterolemia : Cholesterol mgmt Indication: Hypercholesterolemia Vitamin D deficiency, unspecified : Follow up in 3 months Indication: Vitamin D deficiency, unspecified Hypercholesterolemia : Reviewed Lab Indication: Hypercholesterolemia Vitamin D deficiency, unspecified : Reviewed Lab Indication: Vitamin D deficiency, unspecified Hypercholesterolemia : Follow up in 6 months Indication: Hypercholesterolemia Hypercholesterolemia : Cholesterol mgmt Indication: Hypercholesterolemia 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 : Punch Biopsy with Epi Indication: Atypical Spitz nevus Atypical Spitz nevus : Instructions for the Patient Before and After Surgery *: postop Indication: Atypical Spitz nevus Hypercholesterolemia : Follow up in 4 months Indication: Hypercholesterolemia Osteoporosis : *Calcium Education (KF) Indication: Osteoporosis Hypercholesterolemia : *Cholesterol - Nonprescription Treatment Indication: Hypercholesterolemia Hypercholesterolemia : Cholesterol mgmt Indication: Hypercholesterolemia Hypothyroidism : Hypothyroidism: Brief Version *: hypothyroidism Indication: Hypothyroidism Hypercholesterolemia : Follow up in 4 months Indication: Hypercholesterolemia Vitamin D deficiency, unspecified : Continue Current Prescription(s)5,000 units most days of week Indication: Vitamin D deficiency, unspecified Hypercholesterolemia : *Cholesterol - Nonprescription Treatment Indication: Hypercholesterolemia Hypercholesterolemia : Cholesterol mgmt Indication: Hypercholesterolemia Hypercholesterolemia : High Cholesterol (Hypercholesterolemia) *: cardiovascular health Indication: Hypercholesterolemia Hypercholesterolemia : *Cholesterol - Nonprescription Treatment Indication: Hypercholesterolemia Hypercholesterolemia : Cholesterol mgmt Indication: Hypercholesterolemia Osteoporosis : *Calcium Education (KF) Indication: Osteoporosis Hypercholesterolemia : *Cholesterol - Nonprescription Treatment Indication: Hypercholesterolemia Hypercholesterolemia : Cholesterol mgmt Indication: Hypercholesterolemia Encounter for immunization : Shingles Vaccine Education 2005 Indication: Encounter for immunization Osteoporosis : Reviewed Diagnostic Tests Indication: Osteoporosis Well woman exam with routine gynecological exam : SELF BREAST EXAM Indication: Well woman exam with routine gynecological exam Well woman exam with routine gynecological exam : *Colon Cancer Screening Indication: Well woman exam with routine gynecological exam Well woman exam with routine gynecological exam : *Well Female Maintenance (KF) Indication: Well woman exam with routine gynecological exam Well woman exam with routine gynecological exam : Pap/Pelvic/Bimanual/Rectal/Breast Exam was done. Indication: Well woman exam with routine gynecological exam Hypercholesterolemia : FOLLOW UP IN 6 MONTHS Indication: Hypercholesterolemia Osteoporosis : FOLLOW UP - MAKE APPT AFTER DIAGNOSTIC TESTS Indication: Osteoporosis Osteoporosis : *Calcium Education (KF) Indication: Osteoporosis Hypercholesterolemia : CHOLESTEROL MGMT. 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 : FOLLOW UP IN 3 MONTHS Indication: 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 mention of thyrotoxic crisis or storm Hypercholesterolemia : Reviewed Lab Indication: Hypercholesterolemia Family history of diabetes mellitus : FOLLOW UP IN 3 WEEKS Indication: Family history of diabetes mellitus Actinic keratosis : FOLLOW UP IN 1 WEEK Indication: Actinic keratosis Actinic keratosis : Punch Biopsy with Epi Indication: Actinic keratosis Shoulder joint pain, unspecified laterality : FOLLOW UP IN 2 WEEKS Indication: Shoulder joint pain, unspecified laterality Shoulder joint pain, unspecified laterality : exercises Indication: Shoulder joint pain, unspecified laterality Well woman exam with routine gynecological exam : Pap/Pelvic/Bimanual/Rectal/Breast Exam was done. Indication: Well woman exam with routine gynecological exam Well woman exam with routine gynecological exam : Well Female Maintenance (KF) Indication: Well woman exam with routine gynecological exam Hypothyroidism : Reviewed Lab Indication: Hypothyroidism Osteoporosis : Well Female Maintenance (KF) Indication: Osteoporosis Hypercholesterolemia : Reviewed Lab Indication: Hypercholesterolemia Hypercholesterolemia : Continue Current Prescription(s) Indication: Hypercholesterolemia Planned Observations METABOLIC PANEL, COMPREHENSIVE ([id number])Indication: Hypercholesterolemia On: 15-Yus-988119:15 Request CBC W/AUTO DIFF WBC ([id number])Indication: Hypercholesterolemia On: 76-Tys-355319:15 Request LIPID PANEL ([id number])Indication: Hypercholesterolemia On: 94-Izr-683000:15 Request TSH ([id number])Indication: Hypothyroidism On: 86-Srn-152607:15 Request CALCIFIDIOL ([id number]) VIT D 25Indication: Vitamin D deficiency, unspecified On: 60-Smq-449169:15 Request CALCIFIDIOL ([id number]) VIT D 25Indication: Vitamin D deficiency, unspecified On: 27-Apr-2015 Request CBC W/AUTO DIFF WBC ([id number])Indication: Hypercholesterolemia On: 27-Apr-2015 Request LIPID PANEL ([id number])Indication: Hypercholesterolemia On: 27-Apr-2015 Request METABOLIC PANEL, COMPREHENSIVE ([id number])Indication: Hypercholesterolemia On: 27-Apr-2015 Request TSH ([id number])Indication: Hypothyroidism On: 27-Apr-2015 Request CALCIFIDIOL ([id number]) VIT D 25Indication: Vitamin D deficiency, unspecified On: 28-Mar-2015 Request CBC W/AUTO DIFF WBC ([id number])Indication: Hypercholesterolemia On: 28-Mar-2015 Request LIPID PANEL ([id number])Indication: Hypercholesterolemia On: 28-Mar-2015 Request METABOLIC PANEL, COMPREHENSIVE ([id number])Indication: Hypercholesterolemia On: 28-Mar-2015 Request TSH ([id number])Indication: Hypothyroidism On: 28-Mar-2015 Request CALCIFIDIOL ([id number]) VIT D 25Indication: Vitamin D deficiency, unspecified On: 26-Feb-2015 Request CBC W/AUTO DIFF WBC ([id number])Indication: Hypercholesterolemia On: 26-Feb-2015 Request LIPID PANEL ([id number])Indication: Hypercholesterolemia On: 26-Feb-2015 Request METABOLIC PANEL, COMPREHENSIVE ([id number])Indication: Hypercholesterolemia On: 26-Feb-2015 Request TSH ([id number])Indication: Hypothyroidism On: 26-Feb-2015 Request CALCIFIDIOL ([id number]) VIT D 25Indication: Vitamin D deficiency, unspecified On: 27-Jan-2015 Request CBC W/AUTO DIFF WBC ([id number])Indication: Hypercholesterolemia On: 27-Jan-2015 Request LIPID PANEL ([id number])Indication: Hypercholesterolemia On: 27-Jan-2015 Request METABOLIC PANEL, COMPREHENSIVE ([id number])Indication: Hypercholesterolemia On: 27-Jan-2015 Request TSH ([id number])Indication: Hypothyroidism On: 27-Jan-2015 Request CALCIFIDIOL ([id number]) VIT D 25Indication: Vitamin D deficiency, unspecified On: 28-Dec-2014 Request CBC W/AUTO DIFF WBC ([id number])Indication: Hypercholesterolemia On: 28-Dec-2014 Request LIPID PANEL ([id number])Indication: Hypercholesterolemia On: 28-Dec-2014 Request METABOLIC PANEL, COMPREHENSIVE ([id number])Indication: Hypercholesterolemia On: 28-Dec-2014 Request TSH ([id number])Indication: Hypothyroidism On: 28-Dec-2014 Request CALCIFIDIOL ([id number]) VIT D 25Indication: Vitamin D deficiency, unspecified On: 85-Rnn-345458:34 Request CBC W/AUTO DIFF WBC ([id number])Indication: Hypercholesterolemia On: 18-Xbm-129819:34 Request METABOLIC PANEL, COMPREHENSIVE ([id number])Indication: Hypercholesterolemia On: 19-Ghq-578659:34 Request LIPID PANEL ([id number])Indication: Hypercholesterolemia On: 87-Qfv-379969:34 Request TSH ([id number])Indication: Hypothyroidism On: 40-Gro-214289:34 Request Thin Prep Pap ([id number])Indication: Well woman exam with routine gynecological exam On: 22-Oof-87289:52 Request Vitamin D Hydroxy ([id number])Indication: Osteoporosis On: 12-Puj-712688:03 Request TSH ([id number])Indication: Hypothyroidism On: 03-Gpo-754138:49 Request T4, FREE (THYROXINE) ([id number])Indication: Hypothyroidism On: 05-Bhf-911179:49 Request T3, FREE (TRIDOTHYRONINE) ([id number])Indication: Hypothyroidism On: 49-Ysb-744259:49 Request Hemoglobin Glyclated (HGB A1C) ([id number])Indication: Family history of diabetes mellitus On: 08-Smn-370600:36 Request LIPID PANEL ([id number])Indication: Hypercholesterolemia On: 18-Jzi-378495:35 Request TSH ([id number])Indication: Hypothyroidism On: 03-Mba-046444:35 Request T4, FREE (THYROXINE) ([id number])Indication: Thyromegaly On: :34 Request T3, FREE (TRIDOTHYRONINE) ([id number])Indication: Thyromegaly On: 02-Rmp-997282:33 Request Vitamin D Hydroxy ([id number])Indication: Vitamin D deficiency, unspecified On: :33 Request Thin prep Pap ([id number])Indication: Well woman exam with routine gynecological exam On: 33-Yff-666916:08 Request FECAL OCCULT HGB ASSAY- tubes sent home ([id number])Indication: Well woman exam with routine gynecological exam On: 13-Coc-18713:21 Request HEPATIC FUNCTION PANEL ([id number])Indication: Hypercholesterolemia On: 49-Sbg-109795:37 Request LIPID PANEL ([id number])Indication: Hypercholesterolemia On: 96-Scv-729936:37 Request TSH ([id number])Indication: Osteoporosis On: 22-Xat-500182:37 Request ALKALINE PHOSPHATASE ([id number])Indication: Osteoporosis On: 35-Gms-509098:37 Request PHOSPHORUS ([id number])Indication: Osteoporosis On: 00-Fyr-325118:37 Request PARATHORMONE ([id number])Indication: Osteoporosis On: 80-Mnr-374190:37 Request CREATININE BLOOD ([id number])Indication: Osteoporosis On: 48-Ajb-127912:37 Request CALCIUM SERUM ([id number])Indication: Osteoporosis On: 22-Hmj-723774:36 Request Vitamin D Hydroxy ([id number])Indication: Osteoporosis On: 91-Tri-470284:35 Request TSH ([id number])Indication: Fatigue On: 14-Hfe-343424:52 Request CBC with manual diff ([id number])Indication: Fatigue On: 78-Mrz-755533:51 Request CALCIFEDIOL ([id number])Indication: Vitamin D deficiency, unspecified On: 85-Ito-726526:51 Request Metabolic Panel, Comprehensive ([id number])Indication: Atypical Spitz nevus On: :44 Request Lipid Panel ([id number])Indication: Atypical Spitz nevus On: :43 Request CALCIFEDIOL ([id number])Indication: Atypical Spitz nevus On: :43 Request CBC with manual diff ([id number])Indication: Atypical Spitz nevus On: :43 Request TSH ([id number])Indication: Atypical Spitz nevus On: :43 Request TSH ([id number])Indication: 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 mention of thyrotoxic crisis or storm On: 59-Hal-160713:13 Request HEPATIC FUNCTION PANEL ([id number])Indication: Hypercholesterolemia On: 75-Dru-780685:13 Request C-Reactive Protein ([id number])Indication: Fatigue On: 15-Hni-867256:13 Request VITAMIN D, 1, 25-DIHYDROXY ([id number])Indication: Fatigue On: 13-Sij-474811:10 Request LIPID PANEL ([id number])Indication: Hypercholesterolemia On: 67-Dbj-842499:01 Request Comments: repeat in 3 months Lipid Panel ([id number])Indication: Hypercholesterolemia On: 94-Ivq-31710:50 Request Metabolic Panel, Comprehensive ([id number])Indication: Family history of diabetes mellitus On: 7-Uqm-502821:20 Request Lipid Panel ([id number])Indication: Hypercholesterolemia On: 7-Wbq-510851:17 Request TSH ([id number])Indication: Hypothyroidism On: 5-Qrx-701619:15 Request Thin prep Pap ([id number])Indication: Well woman exam with routine gynecological exam On: 33-Ety-901012:17 Request GLUCOSE, PP/2 HOUR ([id number])Indication: Family history of diabetes mellitus On: 03-Jul-20068:50 Request Planned Procedures SCREENING DIGITAL TOMOSYNTHESIS OF On: 12-Nov-2017 Intent BREAST ([id number])By: Vicki Hall DO, DO, Kathleen EKG ([id number])By: Vicki Hall DO On: 12-Nov-2017 Intent Vicki Hall DO Comments: nsr no acute chg - poor Rwave progression and nonspecific st flattening ELECTROCARDIOGRAM, COMPLETE (ECG) On: 18-Jun-2017 Intent ([id number])By: Vicki Hall DO Comments: nsr no acute chg Vicki Hall DO ABDOMINAL ULTRASOUND, LIMITED On: 23-May-2017 Intent ([id number])By: Vicki Hall DO Comments: its a soft tissue mass on very lateral Left side of abdomen Vicki Hall DO ULTRASOUND OF PELVIC REGION On: 05-Aug-2016 Intent ([id number])By: Vicki Hall DO Comments: send results to Vicki Blackwell DO DEXA SCAN AXIAL SKELETON ([id number])By: On: 24-May-2015 Intent Vicki Hall DO, DO, Kathleen Prevnar 13 ([id number])By: Rafael CASTILLO, On: 21-Jul-2014 Intent Vicki Hamilton DO Comments: 0.5 cc given im lt arm lot [id number] exp 10/15 EKG ([id number])By: Vicki Hall DO On: 04-Apr-2014 Intent Vicki Hall DO Comments: nsr poor R wave progression --no acute finding s BILATERAL MAMMOGRAMS ([id number])By: On: 04-Apr-2014 Intent Vicki Hall DO, DO, Kathleen Eprescribed prescriptions On: 26-Aug-2013 Intent ([id number])By: Vicki Hall DO, DO, Kathleen ELECTROCARDIOGRAM, COMPLETE (ECG) On: 04-Dec-2012 Intent ([id number])By: Jacqui Joyce CNP Aerosol Treatment ([id number])By: Maria Del Carmen On: 04-Dec-2012 Intent Jacqui PIÑA Pulse Oximetry ([id number])By: Taiwo On: 04-Dec-2012 Intent TUCKER Eprescribed prescriptions On: 23-Jul-2011 Intent ([id number])By: Vicki Hall DO, DO, Kathleen EKG ([id number])By: Vicki Hall DO On: 19-Jul-2011 Intent Vicki Hall DO Comments: nsr no acute chg ZOSTER VACC, [place] ([id number])By: Travis On: 23-Oct-2010 Intent Odilia BENDER Comments: Lot #[id number]/12Site-L armDose 0.7mlgiven by:JOYCE IMMUNIZ ADMNIN, 1 VAC, SNGL/COMBO On: 23-Oct-2010 Intent ([id number])By: Odilia Robles LPN TDAP VACCINE >7 IM ([id number])By: On: 07-Jun-2010 Intent Vicki Hall DO, DO, Comments: Lot #[id number]-L ARMDose PREFILLED SYRINGEgiven by:joyce Cohen DXA, BONE DENSITY, AXIAL SKELETON On: 18-Apr-2010 Intent ([id number])By: Earnestine Vasquez LPN MAMMOGRAM, SCREENING, BOTH BREASTS On: 18-Apr-2010 Intent ([id number])By: Earnestine Vasquez LPN EKG ([id number])By: Vicki Hall DO On: 30-Mar-2010 Intent Vicki Hall DO Comments: nsjr no acute chg nonspefic flattening- no acute DXA, BONE DENSITY, AXIAL SKELETON On: 30-Mar-2010 Intent ([id number])By: Vicki Hall DO, DO, Kathleen Ultrasound - ThyroidBy: Maria Del Carmen PIÑA On: 14-Aug-2009 Intent Jacqui Malcolm Echo CompleteBy: Jacqui Joyce CNP On: 16-Aug-2008 Intent EKG ([id number])By: Jacqui Joyce CNP On: 16-Aug-2008 Intent PNEUM VAC ADLT/IMUMNOSPR, SBC/INTRM On: 17-May-2008 Intent ([id number])By: Orly Holland Comments: Lot #[id number]/07/09Site-left deltoidDose0.5mlgiven by Artie Holland LPN IMMUNIZ ADMNIN, 1 VAC, SNGL/COMBO On: 17-May-2008 Intent ([id number])By: Orly Holland Ultrasound - ThyroidBy: Maria Del Carmen PIÑA, On: 25-Feb-2008 Intent Melissa EXCISION BGN LSN TRNK/ARM/LEG On: 28-Jan-2008 Intent 0.6-1.0 CM ([id number])By: Jacqui Joyce CNP BIOPSY OF SKIN LESION, SINGLE On: 28-Jan-2008 Intent ([id number])By: Jacqui Joyce CNP Radiology - Cervical SpineBy: Maria Del Carmen On: 25-Jan-2008 Intent WANG Melissa Radiology - Shoulder - RightBy: On: 25-Jan-2008 Intent Maria Del Carmen PIÑA Melissa MAMMOGRAM, SCREENING, BOTH BREASTS On: 25-Jul-2006 Intent ([id number])By: Vicki Hall DO, DO, Kathleen IMMUNIZ ADMNIN, 1 VAC, SNGL/COMBO On: 03-Jul-2006 Intent ([id number])By: Vicki Hall DO, DO, Kathleen FLU VAC, SPLIT, >3 YEARS, INTRAMUSC On: 03-Jul-2006 Intent ([id number])By: Vicki Hall DO, DO, Kathleen Ultrasound - ThyroidBy: Rafael CASTILLO, On: 03-Jul-2006 Intent Vicki Hamilton DO Bone Density StudyBy: Rafael CASTILLO, On: 03-Jul-2006 Intent Vicki Hamilton DO Instructions Name Dates Details Non-smoker : How to access health information online Indication: Non-smoker Non-smoker : How to access health information online - Detail Indication: Non-smoker Non-smoker : Patient Instructions Indication: Non-smoker Non-smoker : How to access health information online Indication: Non-smoker Non-smoker : How to access health information online - Detail Indication: Non-smoker Non-smoker : Patient Instructions Indication: Non-smoker Soft tissue mass : How to access health information online Indication: Soft tissue mass Soft tissue mass : How to access health information online - Detail Indication: Soft tissue mass Soft tissue mass : Patient Instructions Indication: Soft tissue mass Non-smoker : How to access health information online Indication: Non-smoker Non-smoker : How to access health information online - Detail Indication: Non-smoker Non-smoker : Patient Instructions Indication: Non-smoker GERD (gastroesophageal reflux disease) : How to access health information online Indication: GERD (gastroesophageal reflux disease) GERD (gastroesophageal reflux disease) : How to access health information online - Detail Indication: GERD (gastroesophageal reflux disease) GERD (gastroesophageal reflux disease) : Patient Instructions Indication: GERD (gastroesophageal reflux disease) Sebaceous Cyst : How to access health information online Indication: Sebaceous Cyst Sebaceous Cyst : How to access health information online - Detail Indication: Sebaceous Cyst Sebaceous Cyst : Patient Instructions Indication: Sebaceous Cyst GERD (gastroesophageal reflux disease) : How to access health information online Indication: GERD (gastroesophageal reflux disease) GERD (gastroesophageal reflux disease) : How to access health information online - Detail Indication: GERD (gastroesophageal reflux disease) GERD (gastroesophageal reflux disease) : Patient Instructions Indication: GERD (gastroesophageal reflux disease) Hematuria : Patient Instructions Indication: Hematuria Well woman exam with routine gynecological exam : Patient Instructions Indication: Well woman exam with routine gynecological exam Breath shortness : Patient Instructions Indication: Breath shortness Hypothyroidism : How to access health information online Indication: Hypothyroidism Hypothyroidism : How to access health information online - Detail Indication: Hypothyroidism Hypothyroidism : Patient Instructions Indication: Hypothyroidism Hypothyroidism : How to access health information online Indication: Hypothyroidism Hypothyroidism : How to access health information online - Detail Indication: Hypothyroidism Hypothyroidism : Patient Instructions Indication: Hypothyroidism Hypercholesterolemia : Patient Instructions Indication: Hypercholesterolemia Hypercholesterolemia : Patient Instructions Indication: Hypercholesterolemia Atypical Spitz nevus : Patient Instructions Indication: Atypical Spitz nevus Hypothyroidism : Patient Instructions Indication: Hypothyroidism Encounters Office Visit On: 12-Nov-2017 12:13 Encounter Diagnosis: Encounter for screening mammogram for breast cancer (Renamed from Encounter for screening mammogram for malignant neoplasm of breast) End: 12-Nov-2017 12:14 [facility] Office Visit On: 12-Nov-2017 11:40 Encounter Reason: Pre-Op Visit - The procedure scheduled is a Hysteroscopy and D&C on 11/21/2017. The surgeon for the procedure will be Rox Araujo.Encounter Diagnosis: BMI 22.0-22.9, adult, Non-smoker, End: 12-Nov-2017 12:12 Pre-operative exam (Renamed from Preop examination) [facility] Office Visit On: 18-Jun-2017 9:21 Encounter Reason: Follow up for chronic medical issues - The patient feels well with minor complaints, has good energy level and is sleeping well. Patient has been compliant with instructions. Current medication use: no End: 18-Jun-2017 15:54 side effects and compliant with dosing regimen. Patient sleeps 7 hours per night. Nutrition: balanced diet and supplemental vitamins. The medical issues the patient is following up for include All ident ified problems below, gastric reflux, high blood pressure, high cholesterol and osteoporosis/osteopenia.Encounter Diagnosis: BMI 22.0-22.9, adult, Non-smoker, Hypercholesterolemia, GERD (gastroesophageal reflux disease), Hypothyroidism, Vitamin D deficiency, unspecified, Bladder prolapse, female, acquired, Uterine prolapse, Rectocele, female, Osteoporosis, Fall due to slipping on ice or snow, initial encounter [facility] Office Visit On: 23-May-2017 11:03 Encounter Reason: Lumps - The onset of the lumps has been acute and has been occurring for 2 weeks. The lumps are described as mild. Note for Lumps: pt has a lump on her left upper quadrant on the outter side, below th End: 23-May-2017 11:41 e armpit. she denies any pain or itching. the area is not red or warm or tender to touch.Encounter Diagnosis: Non-smoker, BMI 22.0-22.9, adult, Other intervertebral disc degeneration, lumbar region, Soft tissue mass [facility] Office Visit On: 05-Aug-2016 14:52 Encounter Reason: Vaginal Discharge - No changes in management were made at the last visit. Symptoms include vaginal discharge. The patient describes the vaginal discharge as bloody. Onset was sudden day(s) ago. The symp End: 05-Aug-2016 15:23 toms occur constantly. The patient describes this as moderate in severity. Note for Vaginal discharge: I think I have a uters that is fallingout and I have a pink dischargeEncounter Diagnosis: Body mass index (BMI) 23.0-23.9, adult, Non-smoker, Vaginal discharge, bloody, Uterine prolapse, Bladder prolapse, female, acquired [facility] Office Visit On: 24-May-2015 10:54 Encounter Reason: Follow up tests - Date: (05/16/15 blood work)., [ADDITIONAL REASON] Follow up for chronic medical issues - The patient feels well with no complaints End: 24-May-2015 13:05 , has good energy level and is sleeping well. Patient has been compliant with instructions. Current medication use: no side effects and compliant with dosing regimen. Patient sleeps 6 (unsure) hours per night. Nutrition: balanced diet and supplemental vitamins. The medical issues the patient is following up for include All identified problems below, gastric reflux, high cholesterol and hypothyroid. Encounter Diagnosis: Vitamin D deficiency, unspecified, Hypothyroidism, Hypercholesterolemia, GERD (gastroesophageal reflux disease), Osteoporosis, Urgency-frequency syndrome, Rectocele, female [facility] Phone Encounter On: 05-Dec-2014 17:30 Encounter Diagnosis: Hypothyroidism(244.9), Hypercholesterolemia (272.0) End: 05-Dec-2014 17:32 [facility] Office Visit On: 05-Dec-2014 11:04 Encounter Reason: Skin lesion - The skin lesion appeared rapidly and has been occurring for 1 months. It has been increasing in size. The skin lesion is characterized as raised above the skin. The skin lesion is located End: 05-Dec-2014 16:03 on the face. There has been no associated alopecia ,anorexia ,chills ,fatigue ,fever ,itching ,kidney disease ,liver disease ,loss of sensation ,lymphadenopathy ,malaise ,mucous membrane lesions ,nail changes ,pain or weight loss. Encounter Diagnosis: Sebaceous Cyst, Lesion-Unknown behavior (238.2) [facility] Office Visit On: 28-Nov-2014 9:46 Encounter Reason: Follow up for chronic medical issues - The patient feels well with minor complaints, has good energy level and is sleeping poorly. Patient has been compliant with instructions. Current medication use: n End: 28-Nov-2014 10:39 o side effects and compliant with dosing regimen. Patient sleeps 6 hours per night. Nutrition: balanced diet and supplemental vitamins. The medical issues the patient is following up for include All esther ntified problems below, gastric reflux, high cholesterol and hypothyroid.Encounter Diagnosis: GERD (gastroesophageal reflux disease), Hypothyroidism(244.9), DEFICIENCY, VITAMIN D NOS (268.9), Hypercholesterolemia (272.0), Atypical Nevus(238.2) [facility] Office Visit On: 28-Jul-2014 11:45 Encounter Reason: Sinusitis - The last clinic visit was 1 day(s) ago. No changes in management were made at the last visit. The patient describes this as mild.Encounter Diagnosis: Hematuria, Hypothyroidism(244.9), SINUSITIS, ACUTE NOS (461.9), End: 28-Jul-2014 12:40 Vertigo [facility] Office Visit On: 21-Jul-2014 9:47 Encounter Reason: Well Women Exam - The patient feels well with minor complaints, has good energy level and is sleeping well. Pap smear: date of last pap: (2011). Contraceptive history: The patient is not using any metho End: 21-Jul-2014 13:32 d of contraception at this time. Patient does not exercise. The patient reports that she does not perform monthly breast self exam. Calcium intake includes 2 serving(s) milk daily. The patient denies th e use of oral contraceptives or hormone replacement therapy. Menstruation: Last menstrual period date: (age 55).Encounter Diagnosis: Well Woman Exam (V72.31) (Pap,Mammo,Routine Female), Breast screening, Urinary stream slowing, Hematuria, Prophylactic vaccination against Streptococcus pneumoniae (V03.82) [facility] Office Visit On: 06-Jun-2014 9:19 Encounter Reason: Follow up for chronic medical issues - The patient feels well with minor complaints, has good energy level and is sleeping well. Patient has been compliant with instructions. Current medication use: no End: 06-Jun-2014 10:06 side effects and compliant with dosing regimen. Patient sleeps 6 hours per night. Nutrition: balanced diet and supplemental vitamins. The medical issues the patient is following up for include All identified problems below and hypothyroid. weight :. Encounter Diagnosis: Hypothyroidism(244.9), GERD (gastroesophageal reflux disease), Hypercholesterolemia (272.0), DEFICIENCY, VITAMIN D NOS (268.9), Degenerative Disc Disease - Lumbar (722.52) [facility] Office Visit On: 04-Apr-2014 7:52 Encounter Reason: Follow up for chronic medical issues - The patient feels well with minor complaints, has good energy level and is sleeping poorly. Patient has been compliant with instructions. Current medication use: n End: 04-Apr-2014 12:47 o side effects and compliant with dosing regimen. Nutrition: balanced diet. The medical issues the patient is following up for include All identified problems below, high cholesterol, hypothyroid and osteoporosis/osteopenia., [ADDITIONAL REASON] Follow up tests - Diagnostic tests include other (labs). Date: (05/24/13). Encounter Diagnosis: DEFICIENCY, VITAMIN D NOS (268.9), Hypercholesterolemia (272.0), Osteoporosis (733.00), Hypothyroidism(244.9), Wheeze, Breast screening, Urgency-frequency syndrome, Breath shortness (786.05), Cough (786.2), GERD (gastroesophageal reflux disease) [facility] Office Visit On: 30-Dec-2013 13:53 Encounter Reason: Follow up for chronic medical issues - The patient feels well with minor complaints, has good energy level and is sleeping poorly. Patient has been compliant with instructions. Current medication use: n End: 30-Dec-2013 14:52 o side effects and compliant with dosing regimen. Nutrition: balanced diet. The medical issues the patient is following up for include All identified problems below, high cholesterol, hypothyroid and osteoporosis/osteopenia.Encounter Diagnosis: Osteoporosis (733.00), Hypothyroidism(244.9), Hypercholesterolemia (272.0), DEFICIENCY, VITAMIN D NOS (268.9), Degenerative Disc Disease - Lumbar (722.52) [facility] Office Visit On: 26-Aug-2013 10:27 Encounter Reason: Follow up for chronic medical issues - The patient feels well with minor complaints, has decreased energy level and is sleeping poorly. Patient has been compliant with instructions. Current medication u End: 26-Aug-2013 11:28 se: no side effects and compliant with dosing regimen. Patient sleeps 8 hours per night. Nutrition: balanced diet and supplemental vitamins. The medical issues the patient is following up for include Al l identified problems below, high blood pressure and high cholesterol.Encounter Diagnosis: Hypercholesterolemia (272.0), Hypothyroidism(244.9), Osteoporosis (733.00), DEFICIENCY, VITAMIN D NOS (268.9) [facility] Phone Encounter On: 28-Jul-2013 14:59 Encounter Diagnosis: Unspecified Diagnosis End: 28-Jul-2013 15:03 [facility] Office Visit On: 31-May-2013 10:32 Encounter Reason: Follow up tests - Diagnostic tests include other (labs). Date: (05/24/13).Encounter Diagnosis: Hypercholesterolemia (272.0), DEFICIENCY, VITAMIN D NOS (268.9) End: 31-May-2013 11:06 [facility] Annotation/Addendum On: 24-May-2013 9:57 Encounter Reason: Foot Problem - Onset was week(s) ago. The symptoms occur constantly. The patient describes symptoms as moderate in severity and worsening. Symptoms are exacerbated by standing. Associated symptoms include pain with shoes. End: 24-May-2013 10:29 Encounter Diagnosis: Hypercholesterolemia (272.0) [facility] Office Visit On: 04-Dec-2012 14:18 Encounter Reason: Insect Bite/Sting - The patient sustained an insect bite/sting to the left arm. Symptoms include single bite or sting. Symptoms are located on the left arm. Onset was sudden. The patient describes this End: 04-Dec-2012 15:46 as unchanged. Current treatment includes ice and topical antihistamines.Encounter Diagnosis: Breath shortness (786.05), Cough (786.2), Bite, insect (919.4) [facility] Office Visit On: 22-Jul-2012 10:07 Encounter Reason: Follow up for chronic medical issues - The patient feels well with minor complaints, has decreased energy level and is sleeping well. Patient has been compliant with instructions. Current medication use End: 22-Jul-2012 11:03 : no side effects and compliant with dosing regimen. Patient sleeps 6 hours per night. Nutrition: inappropriate diet and no supplemental vitamins & iron. The medical issues the patient is following up for include All identified problems below, high blood pressure and high cholesterol.Encounter Diagnosis: Hypercholesterolemia (272.0), Hypothyroidism(244.9), Osteoporosis (733.00), DEFICIENCY, VITAMIN D NOS (268.9), Fatigue (780.79) [facility] Office Visit On: 25-Mar-2012 10:53 Encounter Reason: Skin Lesions - The last clinic visit was month(s) ago. No changes in management were made at the last visit. Symptoms include single skin lesion. The patient describes the lesion(s) as painful, raised a End: 25-Mar-2012 11:49 nd red. Onset was sudden. There is no known event that preceded symptom onset. The symptoms occur constantly. The patient describes this as mild and worsening. Note for Skin Lesions: on backEncounter Diagnosis: Atypical Nevus(238.2) [facility] Office Visit On: 18-Mar-2012 8:59 Encounter Reason: Follow up for chronic medical issues - The patient feels well with minor complaints, has decreased energy level and is sleeping poorly. Patient has been compliant with instructions. Current medication u End: 18-Mar-2012 9:26 se: no side effects and compliant with dosing regimen. Patient sleeps 5 hours per night. Nutrition: inappropriate diet and supplemental vitamins. The medical issues the patient is following up for inclu de All identified problems below, high cholesterol, hypothyroid and osteoporosis/osteopenia.Encounter Diagnosis: Hypothyroidism(244.9), Osteoporosis (733.00), Hypercholesterolemia (272.0), Atypical Nevus(238.2) [facility] Office Visit On: 20-Nov-2011 10:34 Encounter Reason: Follow up for chronic medical issues - The patient feels well with minor complaints, has decreased energy level and is sleeping poorly. Patient has been compliant with instructions. Current medication u End: 20-Nov-2011 11:06 se: no side effects and compliant with dosing regimen. Patient sleeps 5 hours per night. Nutrition: balanced diet and supplemental vitamins. 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 Patient has been compliant with instructions. Current medication use: no End: 19-Jul-2011 13:36 side effects and compliant with dosing regimen. Patient sleeps 7 hours per night. Nutrition: balanced diet and supplemental vitamins. The medical issues the patient is following up for include All ident ified problems below, high cholesterol and hypothyroid. weight :.Encounter Diagnosis: Hypothyroidism(244.9), DEFICIENCY, VITAMIN D NOS (268.9), Osteoporosis (733.00), Thyromegaly (240.9), Hypercholesterolemia (272.0), Family history of diabetes mellitus (V18.0) [facility] Office Visit On: 23-Oct-2010 11:51 Encounter Reason: Injections - The medication the patient is here to receive is shingles vaccine IM.Encounter Diagnosis: SHINGLES,NEED FOR PROPHYLACTIC VACCINATION AND INOCULATION AGAINST (V05.8) End: 23-Oct-2010 11:57 [facility] Office Visit On: 07-Jun-2010 9:04 Encounter Reason: Follow up tests - Date: (05/23/10 bone density).Encounter Diagnosis: Osteoporosis (733.00), Diarrhea (787.91), MALABSORPTION, INTESTINAL NOS (579.9) End: 07-Jun-2010 11:00 [facility] Office Visit On: 18-Apr-2010 9:18 Encounter Reason: Well Women Exam - The patient feels well with minor complaints, has good energy level and is sleeping well. Pap smear: date of last pap: (couple of yrs). Contraceptive history: The patient is not using End: 18-Apr-2010 16:46 any method of contraception at this time. Patient does not exercise. The patient reports that she does not perform monthly breast self exam. Calcium intake includes 1200 mg daily supplment. The patient denies the use of oral contraceptives or hormone replacement therapy.Encounter Diagnosis: Well Woman Exam (V72.31) (Pap,Mammo,Routine Female) [facility] Office Visit On: 30-Mar-2010 10:11 Encounter Reason: Follow up for chronic medical issues - The patient feels well with minor complaints, has good energy level and is sleeping well. Patient has been compliant with instructions. Current medication use: no End: 30-Mar-2010 12:31 side effects and compliant with dosing regimen. Patient sleeps 6 hours per night. Nutrition: balanced diet and supplemental vitamins. The medical issues the patient is following up for include All ident ified problems below, high blood pressure, high cholesterol and hypothyroid.Encounter Diagnosis: Hypercholesterolemia (272.0), Osteoporosis (733.00), DEFICIENCY, VITAMIN D NOS (268.9) [facility] Office Visit On: 16-Nov-2009 10:23 Encounter Reason: Follow up for chronic medical issues - The patient feels well with no complaints ,has good energy level and is sleeping poorly ( too much gardening ). Patient has been compliant with instructions. Cur End: 16-Nov-2009 11:55 rent medication use: no side effects ,compliant with dosing regimen and considered effective by patient. Patient sleeps 6 hours per night. Nutrition: balanced diet (attempted). The medical issues the pa tient is following up for include All identified problems below ,high cholesterol ,hypothyroid ,osteoporosis/osteopenia and other (Vit D deficency). Encounter Diagnosis: DEFICIENCY, VITAMIN D NOS (268.9), Low back pain (724.2), Fatigue (780.79), Hypothyroidism(244.9), Hypercholesterolemia (272.0) [facility] Office Visit On: 14-Aug-2009 9:29 Encounter Reason: Follow up for chronic medical issues - The patient feels well with no complaints ,has good energy level and is sleeping well. Patient has been compliant with instructions. Current medication use: no bailey End: 14-Aug-2009 11:10 e effects and compliant with dosing regimen. Patient sleeps 6 hours per night. Nutrition: balanced diet. The medical issues the patient is following up for include All identified problems below ,high ch olesterol ,hypothyroid ,osteoporosis/osteopenia and other (vit D deficient,). , [ADDITIONAL REASON] Follow up, Laboratory Test Results - Date: (07/13/09). There is no family history of breast cancer ,cardiovascular disease ,cystic fibrosis ,Down's syndrome ,mental retardation or myocardial infarction before age 55. Past medical history includes elevated cholesterol ,hypothyroidism and other (vit D deficency, osteoporosis). Encounter Diagnosis: Hypothyroidism(244.9), Low back pain (724.2), DEFICIENCY, VITAMIN D NOS (268.9), Hypercholesterolemia (272.0), Thyromegaly (240.9) [facility] Office Visit On: 14-Jul-2009 15:32 Encounter Diagnosis: DEFICIENCY, VITAMIN D NOS (268.9) End: 14-Jul-2009 15:36 [facility] Office Visit On: 13-Jul-2009 8:33 Encounter Reason: Skin lesion - The skin lesion appeared rapidly and has been occurring for 1 months. It has been increasing in size. The skin lesion is characterized as raised above the skin. The skin lesion is located End: 13-Jul-2009 9:45 on the face. There has been no associated alopecia ,anorexia ,chills ,fatigue ,fever ,itching ,kidney disease ,liver disease ,loss of sensation ,lymphadenopathy ,malaise ,mucous membrane lesions ,nail changes ,pain or weight loss. Encounter Diagnosis: Atypical Nevus(238.2) [facility] Office Visit On: 30-Aug-2008 9:10 Encounter Reason: Follow up acute care visit - The patient feels the same. Patient has been compliant with instructions. Current medication use: no side effects and compliant with dosing regimen. Patient sleeps 8 hours p End: 30-Aug-2008 9:36 er night. Nutrition: balanced diet. The medical issues the patient is following up for include other (high cholesterol, multinodular goiter). Encounter Diagnosis: Elevated CRP (790.95), Hypercholesterolemia (272.0), Hypothyroidism(244.9) [facility] Office Visit On: 16-Aug-2008 10:47 Encounter Reason: Follow up for chronic medical issues - The patient feels well with no complaints ,has good energy level and is sleeping well. Patient has been compliant with instructions. Current medication use: no bailey End: 16-Aug-2008 12:19 e effects and compliant with dosing regimen. Patient sleeps 8 hours per night. Nutrition: balanced diet. The medical issues the patient is following up for include high cholesterol and other (fatigue, joint pain). Encounter Diagnosis: 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 mention of thyrotoxic crisis or storm (242.20), Hypercholesterolemia (272.0), Osteoporosis (733.00), Elevated CRP (790.95), Family history of AAA, Abnormal EKG(794.31) [facility] Annotation/Addendum On: 17-May-2008 11:39 Encounter Diagnosis: Prophylactic vaccination against Streptococcus pneumoniae (V03.82) End: 17-May-2008 11:42 [facility] Office Visit On: 17-May-2008 10:33 Encounter Reason: Follow up for chronic medical issues - The patient feels well with minor complaints ,has good energy level and is sleeping well. Patient has been compliant with instructions. Current medication use: no End: 17-May-2008 11:16 side effects and compliant with dosing regimen. Patient sleeps 6 hours per night. Impact of disease: no overall impact. Nutrition: balanced diet and supplemental vitamins. The medical issues the patient is following up for include All identified problems below ,high cholesterol ,hypothyroid and osteoporosis/osteopenia. , [ADDITIONAL REASON] Follow up, Laboratory Test Results - Date: (05/10/08). Encounter Diagnosis: Hypercholesterolemia (272.0), Fatigue (780.79), Pain in joint involving shoulder region (719.41) [facility] Office Visit On: 25-Feb-2008 8:10 Encounter Reason: Follow up, Laboratory Test Results - Date: (02/04/08). Current symptoms/reason for visit include/s Follow up visit with no current symptoms. There is a family history of cardiovascular disease (father) , End: 25-Feb-2008 9:57 while there is no family history of breast cancer ,cystic fibrosis ,Down's syndrome ,mental retardation or myocardial infarction before age 55. Past medical history includes elevated cholesterol and hypothyroidism. Encounter Diagnosis: Hypercholesterolemia (272.0), Pain in joint involving shoulder region (719.41), 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 mention of thyrotoxic crisis or storm (242.20) [facility] Phone Encounter On: 08-Feb-2008 9:02 [facility] End: 08-Feb-2008 9:05 Consultation On: 04-Feb-2008 14:04 Encounter Diagnosis: Urinary frequency (788.41) End: 04-Feb-2008 14:20 [facility] Office Visit On: 04-Feb-2008 7:47 Encounter Diagnosis: Actinic keratosis (702.0), Pain in joint involving shoulder region (719.41), Hypothyroidism(244.9), Hypercholesterolemia (272.0), Family history of diabetes mellitus (V18.0) End: 04-Feb-2008 10:34 [facility] Office Visit On: 28-Jan-2008 10:30 Encounter Diagnosis: Actinic keratosis (702.0) End: 28-Jan-2008 12:09 [facility] Office Visit On: 25-Jan-2008 9:32 Encounter Reason: Arm pain - The onset of the pain has been gradual and has been occurring in a persistent pattern for months (started in spring ). The course has been constant. The pain is described as moderate. The bethanie End: 25-Jan-2008 11:48 n is described as being located in the right shoulder. The pain is aggravated by reaching ,lifting ,extending elbow ,bending wrist and twisting hand up and down. The pain is relieved by anti-inflammatory use. Note for Arm pain: sleep makes worse Encounter Diagnosis: Pain in joint involving shoulder region (719.41) [facility] Historical Summary On: 09-Sep-2006 7:56 [facility] End: 09-Sep-2006 8:00 Historical Summary On: 09-Sep-2006 7:54 [facility] End: 09-Sep-2006 7:55 Office Visit On: 25-Jul-2006 11:51 Encounter Reason: Well Women Exam - The patient feels well with minor complaints (has a cough at times) ,has good energy level and is sleeping well. Pap smear: date of last pap: (02/03). Patient exercises 3 - 4 times per End: 25-Jul-2006 12:18 week. The patient reports that she does not perform monthly breast self exam. Encounter Diagnosis: Well Woman Exam (V72.31) (Pap,Mammo,Routine Female), Hypothyroidism(244.9), Hypercholesterolemia (272.0) [facility] Office Visit On: 03-Jul-2006 8:28 Encounter Reason: Follow up for chronic medical issues - The patient feels well with no complaints. Current medication use: no side effects. Patient sleeps 7 hours per night. Nutrition: balanced diet. The medical issues End: 03-Jul-2006 9:00 the patient is following up for include All identified problems below ,osteoporosis/osteopenia and other (hashimotos, acne roscea). Encounter Diagnosis: Hypercholesterolemia (272.0), Osteoporosis (733.00), Elevated Blood Pressure without diagnosis of Hypertension (796.2), Hypothyroidism(244.9), Family history of diabetes mellitus (V18.0), THYROMEGALY (240.9), Need for prophylactic vaccination and inoculation against influenza (V04.81) [facility] Historical Summary On: 24-Jun-2006 11:52 [facility] End: 24-Jun-2006 12:01 Office Visit On: 12-Jun-2006 16:08 Encounter Reason: Dizziness/ - The onset of the dizziness/ has been sudden (stepped out of shower this am and all of a sudden found herself spinning accross the room loss of balance this occured one more time right after End: 12-Jun-2006 16:38 that, she denies any loss of speech, consciousnss, no paralysis of any limbs or facial features, she did have a dull headache like you get when you have been without caffeine, she took a caffenated mckayla erage this did not make much difference. she saw dr. davidson today and mentioned it to him he wanted her seen.) and has been occurring in an intermittent pattern for days. The course has been recurrent. The dizziness/ is characterized as spinning of the environment and feeling in the head. The symptoms have been associated with loss of balance. Encounter Diagnosis: Benign paroxysmal positional vertigo (386.11), Elevated Blood Pressure without diagnosis of Hypertension (796.2), Low back pain (724.2) [facility] [place]; a guarantor
--- OUTSIDE RECORDS SUMMARY | 2018-08-22 07:52 | XMS RPT_ITS ---
:1940 Author Organization OHIP Care Team Providers Name Role Phone MEMO ROJAS, DR. DAMIAN Attending Unavailable Yoel Tate Attending Unavailable Yoel Tate Referring Unavailable Rafael, Vicki Primary Care Unavailable Shira An Attending Unavailable Edwardiner Shira Referring Unavailable Rafael, Vicki Primary Care Unavailable Shira An Attending Unavailable Shira An Attending Unavailable Shira An Attending Unavailable Nataliya Shira Referring Unavailable Rafael, Vicki Primary Care Unavailable Rafael, Vicki Attending Unavailable Rafael, Vicki Primary Care Unavailable Rafael, Vicki Attending Unavailable Rafael, Vicki Primary Care Unavailable PROBLEMS PROBLEMS DATE TYPE CONDITION / CODE ATTENDING STATUS SOURCE 12/02/2017 Unknown Z12.31 - Encounter Rafael, Active Lind for screening [facility] mammogram for Hospital malignant neoplasm Repository of breast / Z12.31(ICD-10) 10/24/2017 Unknown N95.0 - Shira An Active [place] Postmenopausal Community bleeding / Hospital N95.0(ICD-10) Repository 10/24/2017 Unknown N92.1 - Excessive Shira An Active F[place] and frequent Community menstruation with Hospital irregular cycle / Repository N92.1(ICD-10) 07/22/2017 Unknown R30.0 - Dysuria / Shira An Active [place] R30.0(ICD-10) [facility] Repository PROCEDURES PROCEDURES No Procedure Records FoundRESULTS RESULTS CRP Collected: 06/17/2018 Status: F Source: [place] 11:58 AM [facility] REPOSITORY TYPE CODE TESTS RESULT OUT OF RANGE REFERENCE UNITS LAB L501.6710 0.0-3.0 mg/L High 6.25 C-REACTIVE PROT Result Comment: C-Reactive Protein (CRP) provides useful information for the diagnosis, therapy and monitoring of inflammatory processes and associated diseases. For the evaluation of Relative Risk for Cardiovascular Disease, a High Sensitivity CRP (HSCRP) should be ordered. Performed By: #### L501.6710 #### [facility] [place], [place], [id number] CELIAC DISEASE Collected: 06/17/2018 Status: F Source: [place] PROFILE 11:58 AM [facility] REPOSITORY TYPE CODE TESTS RESULT OUT OF RANGE REFERENCE UNITS LAB L3200.1400 64-422 mg/dL Normal IMMUNO A 233 Result Comment: Performed at: - [facility] [address] [id number] Director Payment: Yoel Christiansen PhD, Phone: [phone] LAB O8554.1657 0-3 U/mL Normal tTG IGA <2 Result Comment: Negative 0 - 3 Weak Positive 4 - 10 Positive >10 Tissue Transglutaminase (tTG) has been identified as the endomysial antigen. Studies have demonstr- ated that endomysial IgA antibodies have over 99% specificity for gluten sensitive enteropathy. LAB L3410.4303 Negative Normal ENDOMYSIAL IGA Negative Performed By: #### L3410.2400 #### [facility] (refer to report for specific site) refer to report for address and phone number FINAL SURGICAL Observed: 03/16/2018 Status: F Source: [facility] PATHOLOGY REPORT 9:19 AM [facility] REPOSITORY . Pathology Reports Accession: Collected Date/Time: Received Date/Time: Pathologist: [id number] 03/16/2018 09:19 EDT 03/16/2018 14:22 EDT MD HAYLEE JACKSON Final Surgical Pathology Report DIAGNOSIS: MID-ASCENDING COLON, BIOPSY: - SERRATED POLYP WITHOUT DYSPLASIA. COMMENT: [facility]# [id number] CLINICAL INFORMATION: Procedure: COLONOSCOPY WITH BIOPSIES AND ARGON PLASMA COAGULATION Preoperative diagnosis: ADENOMA Postoperative diagnosis: ADENOMA SPECIMEN: A COLON, BX - MID-ASCENDING COLON GROSS DESCRIPTION: Received in formalin and consists of multiple pale-rodríguez fragments of mucosa ranging in size from 0.2 to 0.3 cm. Totally embedded in a single cassette. dictated by Taryn Jackson M.D. Dictated by HAYLEE JACKSON MD MICROSCOPIC DESCRIPTION: Slides reviewed. Electronically Signed by Pathology Report verified by [facility] Electronically signed by HAYLEE JACKSON MD Sign out Date: 03/17/2018 15:44 Performing Lab: [facility], [address] [place] [address] Performed By: #### SPFR #### [place] [address] BREAST LIMITED Observed: 12/09/2017 Status: F Source: [place] UNILATERAL 10:25 AM [facility] REPOSITORY [facility] Imaging Services [address] [place] [address] Breast Limited Unilateral MR#: [id number] Acct: [id number] Name: GHANSHYAM RIVERA Rep #: [id number] : 1940 F 77 From: Wayne Gutierres MD PCP: Vicki Hall DO Status: REG CLI Study: Breast Limited Unilateral Date of Exam: 12/09/17 Exam# [id number] Ordering Dr: Vicki Hall DO STUDY: ULTRASOUND BREAST - LEFT REASON FOR EXAM: Female, 77 years old. Abnormal screening mammogram. TECHNIQUE: Axial and longitudinal images of the LEFT breast were performed with a high resolution ultrasound transducer. COMPARISON: Comparison is made with prior mammogram dated December 02, 2017 and prior ultrasound of the left breast dated June 07, 2014. FINDINGS: LEFT Breast: There is a 9 mm x 10 mm x 10 mm cyst at the 12:00 position of the breast at 1 cm from the nipple. US/Breast Limited Unilateral IMPRESSION: The mammographic abnormality corresponds to a 9 mm x 10 mm x 10 mm cyst. Routine mammographic follow-up is recommended. ASSESSMENT CATEGORY: BIRADS Category 2: Benign. A letter regarding these results will be sent to the patient by the facility within 30 days. Electronically Signed: Wayne Gutierres MD at 11:09 EDT Tel [phone], Service support , CC: Vicki Hall DO Information Technology Security Manager: Signed SCREENING MAMM (CAD), Observed: 12/02/2017 Status: F Source: [facility] 12:33 PM [facility] REPOSITORY [facility] Imaging Services [address] [place] [address] SCREENING MAMM (CAD), BILAT MR#: [id number] Acct: [id number] Name: GHANSHYAM RIVERA Rep #: [id number] : 1940 F 77 From: Wayne Gutierres MD PCP: Vicki Hall DO Status: [facility] Study: SCREENING MAMM (CAD), BILAT Date of Exam: 12/02/17 Exam# [id number] Ordering Dr: Vicki Hall DO MAMMOGRAPHY - BILATERAL SCREENING REASON FOR EXAM: Female, 77 years old. Routine annual screening examination. PERTINENT HISTORY: Bilateral breast tenderness. TECHNIQUE: Digital bilateral breast ashwini (3D mammographic acquisition) in the CC and MLO projections. 2-D mediolateral oblique (MLO) and craniocaudad (CC) views of both breasts were obtained. CAD: Full Field Digital Mammography with Computer Added Detection was performed. COMPARISON: Comparison is made with prior examination dated June 01, 2014 and May 23, 2010. FINDINGS: Breast Composition: There are scattered areas of fibroglandular density. There are no dominant masses or suspicious calcifications. There is a 1.3 cm x 1.3 cm well-defined nodule in the retroareolar region of the left breast. This has increased in size slightly as compared to prior study. On prior ultrasound, this was demonstrated to be a cyst. A repeat sonogram of the left breast is recommended. Stable benign-appearing bilateral axillary lymph nodes. No other significant [...] delay biopsy of a clinically suspicious abnormality. [id number] Electronically Signed: Wayne Gutierres MD at 14:47 EDT Tel [phone], Service support , CC: Vicki Hall DO Information Technology Security Manager: Signed DISCHARGE INSTRUCTION Observed: 11/21/2017 Status: F Source: [place] 8:56 AM [facility] REPOSITORY [facility] Medical Records Department [address] [place] [address] Instructions for Home/Discharge Instructions 11/21/17 0851 MR#: [id number] Acct: [id number] Name: GHANSHYAM RIVERA Rep #: [id number] : 1940 77 From: Shira An MD PCP: Vicki Hall DO Status: REG [facility] Discharge Diet: No Restrictions - increase water intake to 100 ounces daily x 72 hours Discharge Activity: Return to Normal Activity, May Shower, May Take a Tub Bath - in 2 weeks. Return to work on:: 11/24/17 May shower in (days): 0 - TODAY May resume sexual activity in: 1 week Weight Bearing Status: Full weight bearing Lifting Restrictions: none Additional Activity Instructions:: Ambulate often throughout the day x one week Call your doctor if your incision/area has: Sudden Increased Bleeding Call your doctor if you observe: Fever of 101 or Higher, Inability to urinate, Inability to have a bowel movement, Using more than one pad per hour Cleanse incision/area with: Soap AND Water Allergies/Adverse Reactions: Allergies codeine Adverse Reaction (Verified 11/14/17 13:06) Nausea gluten Adverse Reaction (Verified 11/14/17 13:06) Upset Stomach Medications to take at Discharge Cholecalciferol (Vitamin D3) [Vitamin D3] 5,000 unit [...] Provider] - Please Follow Up With: Shira An MD When: 2 weeks postop 11/21/17 0856 <Electronically signed by Shira An MD> Date Shira An MD CC: Vicki Hall DO OPERATIVE REPORT Observed: 11/21/2017 Status: F Source: [place] 8:51 AM [facility] REPOSITORY [facility] Medical Records Department [address] [place] [address] Operative Report 11/21/17 0840 MR#: [id number] Acct: [id number] Name: GHANSHYAM RIVERA Rep #: [id number] : 1940 77 From: Shira An MD PCP: Vicki Hall DO Status: REG [facility] Y Location: [facility] Problem List (1) Postmenopause bleeding Status: Acute (2) Postmenopause bleeding Status: Acute Report of Operation Date of Procedure: [...] Special Medications: 10 cc of 1% lidocaine Specimen's removed: Endocervical tissue and endometrial tissue Drains: none Estimated Blood Loss (mL): Minimal Fluids Replaced: lactated ringers Description of Procedure: Patient presented to the OR suite n.p.o. status. Patient underwent a MAC anesthetic and was found to be adequate. She was placed in the dorsal lithotomy position. Timeout had occurred. A weighted speculum was placed into the vagina and the anterior cervix was grasped and elevated 10 cc of 1% lidocaine was placed to the 4 quadrant survey. Uterus sounded approximately 6-7 cm anterior position. Kevorkian curette was used to remove endocervical tissue with pathological evaluation. Continue dilation of the cervix. Hysteroscope placed into the endometrial cavity where scant tissue was noted throughout. This was followed by sharp curettage of the endometrium. The endometrial tissue was then collected [...] Prophylaxis ordered?: No Reason prophylaxis not ordered:: Treatment Not Indicated 11/21/17 0851 <Electronically signed by Shira An MD> Date Shira An MD CC: Shira An MD; Vicki Hall Signed ENDOCER CURETT/BIOPSY Observed: 11/21/2017 Status: F Source: [place] 8:25 AM [facility] REPOSITORY Patient: GHANSHYAM RIVERA : 1940 (77/F) Acct Num: [id number] Phys: Nataliya STEWART,Shira Unit Num: [id number] Loc: [facility] Specimen: [id number] Received: 11/21/17 - 1113 Spec Type: ECC TISSUES TISSUES: A. Endocervical [...] specimen is totally submitted in one cassette. / SJ:ferny 11/21/17 TC:5 CPT: 07390 x2 HEADER OPERATION: Hysteroscopy, dilation and curettage PRE-OP DIAGNOSIS: Postmenopausal bleeding TISSUE SUBMITTED: A Endocervical curettage, B - Endometrium MICROSCOPIC DESCRIPTION Slides are reviewed. MICROSCOPIC DIAGNOSIS A. Endocervical curettage: Fragments of benign endocervical mucosa with acute and chronic inflammation. See comment. Strips of benign endometrial epithelium. B. Endometrium, dilation and curettage: Strips and superficial fragments of benign endometrial tissue, consistent with atrophic endometrium, blood and mucous. SJ:ferny 11/24/17 Signed Ronaldo Tipton 11/24/17 <signature on file> Performed By: #### PECC #### [facility] [address] [place], [place], [id number] CBC-COMPLETE BLOOD CNT Collected: 11/17/2017 Status: F Source: [place] NO DIFF 11:29 AM [facility] REPOSITORY TYPE CODE TESTS RESULT OUT OF RANGE REFERENCE UNITS LAB L100.1000 4.4-11.0 K/mm3 Normal WBC 5.8 LAB L100.1200 4.2-5.4 M/mm3 Normal RBC 4.67 LAB L100.1300 12.0-15.0 g/dl Normal HGB 14.5 LAB L100.1400 37-47 % Normal HCT 43.6 LAB L100.1500 81-99 fL Normal MCV 93.4 LAB L100.1600 27.0-32.0 pg Normal MCH 31.0 LAB L100.1700 32-36 g/gl Normal MCHC 33.3 LAB L100.1810 11.6-14.6 % Normal RDW CV 13.4 LAB L100.1820 35.1-43.9 fl High RDW SD 45.4 LAB L100.1900 150-450 K/mm3 Normal PLT 200 LAB L100.2000 6.2-12.0 fl Normal MPV 8.9 Performed By: #### L100.0500 #### [facility] [address] [place], [place], [id number] PROTHROMBIN TIME W/INR Collected: 11/17/2017 Status: F Source: [place] 11:29 AM [facility] REPOSITORY TYPE CODE TESTS RESULT OUT OF RANGE REFERENCE UNITS LAB L300.4150 11.7-14.9 SECONDS Normal PROTIME 13.0 LAB L300.4200 Normal INR 1.0 Performed By: #### L300.3900, L300.4310 #### [facility] [address] [place], [place], [id number] PARTIAL THROMBOPLAST Collected: 11/17/2017 Status: F Source: [place] TIME 11:29 AM [facility] REPOSITORY TYPE CODE TESTS RESULT OUT OF RANGE REFERENCE UNITS LAB L300.4310 24.1-36.2 Seconds Normal PTT 28.1 Performed By: #### L300.3900, L300.4310 #### [facility] [address] [place], [address] TYPE AND SCREEN Collected: 11/17/2017 Status: F Source: [place] 11:29 AM [facility] REPOSITORY Order Comment: Surgery Date: 11/21/17 Hx of Preganancy in last 3 Months No Ever experience any problems with transfusion(s)? N Hx of Transfusion in last 3 Months N Reason for Type AND Screen/Red Cells: SURGERY SURGICAL PROCEDURE: D AND C TYPE CODE TESTS RESULT OUT OF RANGE REFERENCE UNITS LAB B10.0800 O Normal BLOOD TYPE GEL POSITIVE LAB B100.4000 Normal Antibody NEGATIVE Screen Performed By: #### B101.7475 #### [facility] [address] [place], [address] CANCER ANTIGEN 125 Collected: 10/24/2017 Status: F Source: [place] 3:06 PM [facility] REPOSITORY TYPE CODE TESTS RESULT OUT OF RANGE REFERENCE UNITS LAB L3100.5000 0.0-38.1 U/mL Normal CA125 10.7 2303 Result Comment: Spritz ECLIA methodology Performed at: [facility] [address] [id number] Director Payment: Yoel Christiansen PhD, Phone: [phone] Performed By: #### L3100.5000 #### [facility] (refer to report for specific site) refer to report for address and phone number URINALYSIS, COMPLETE Collected: 07/22/2017 Status: F Source: [place] 12:00 PM [facility] REPOSITORY Order Comment: Comments: CYTOLOGY ORDER WELL How was Urine Obtained? CLEAN CATCH TYPE CODE TESTS RESULT OUT OF REFERENCE UNITS RANGE LAB L400.3000 Yellow COLOR Normal Yellow LAB L400.3050 Clear CLARITY Normal Clear LAB L400.3200 Normal mg/dl GLUCOSE, UR Normal Normal LAB L400.3300 Negative mg/dL BILIRUBIN Normal URINE Negative LAB L400.3400 Negative mg/dl KETONE UR Normal Negative LAB L400.3465 1.002-1.030 SP.GR. Normal DIPSTX 1.015 LAB L400.3550 5.0 - 8.0 pH UR Normal 6.0 LAB L400.3600 Negative mg/dl PROT DIPSTX Normal Negative LAB L400.3700 Normal mg/dl UROBILI Normal Normal LAB L400.3750 Negative NITRITE UR Normal Negative LAB L400.3780 Negative /ul OCCULT High BLOOD-UR 25 LAB L400.3800 Negative /ul LEUK High ESTERASE 100 LAB L400.4050 0-5 /hpf WBC Normal 0-5 SEEN LAB L400.4100 0-5 /hpf RBC-UA Normal 0 SEEN LAB L400.4150 5-10 /hpf SQUAM EPI Normal 0-5 SEEN LAB L400.4300 None Seen /hpf BACTERIA Normal 0 SEEN LAB L400.4350 <or=2+ /hpf MUCUS, Normal URINE 0 SEEN LAB L400.4200 0-5 /hpf Normal TRANSITIONAL EP 0-5 SEEN Performed By: #### L400.0001 #### [facility] [address] [facility] [place], [address] CYTOLOGY, BODY FLUID / Collected: 07/22/2017 Status: F Source: [place] CSF 12:00 PM [facility] REPOSITORY Order Comment: Specimen Source: URINE TYPE CODE TESTS RESULT OUT OF RANGE REFERENCE UNITS LAB L350.1000 SEE Normal PATHOLOGY CYTOLOGY,BF REPORT /CSF Result Comment: Specimen submitted to Anatomical Pathology Department for testing. Performed By: #### L350.1000 #### [facility] [address] [place], [address] Observed: 07/22/2017 Status: F Source: [place] CULTURE, URINE 12:00 PM [facility] REPOSITORY Urine Culture Probable skin contamination ORGANISM 1: Mixed Gram Positive Organisms [place] Count 50,000-80,000 MIX CULTURE Mixed contaminants. Submit a new specimen if indicated. Performed By: #### M100.0650 #### [facility] [address] [place], [address] CYTOSPIN ON FLUID Observed: 07/22/2017 Status: F Source: [place] 12:00 AM [facility] REPOSITORY Patient: GHANSHYAM RIVERA : 1940 (77/F) Acct Num: [id number] Phys: Nataliya STEWART,Shira Unit Num: [id number] Loc: [facility] Specimen: [id number] Received: 07/22/17 - 1454 Spec Type: CYSPIN FL TISSUES TISSUES: Urine COMMENT The specimen primarily contains squamous epithelial cells. Clinical correlation is suggested. CYTOLOGY GROSS Received is 35 ml of light yellow fluid labeled with the patient's name and and designated per the requisition as urine. Submitted for cytology preparation. / 07/22/17 TC:5 CPT: 79365 CYTOLOGY STUDY Slides are reviewed. DIAGNOSIS CYTOLOGY Urine for cytology (cytospin): Negative for malignant cells. AM:ferny 07/23/17 HEADER OPERATION: Not noted PRE-OP DIAGNOSIS: TISSUE SUBMITTED: Urine for cytology Signed Herrera Beni 07/23/17 <signature on file> Performed By: #### PCYSPIN #### [facility] [address] [facility] [place], [address] PELVIC (NON ) Observed: 07/18/2017 Status: F Source: [place] 6:22 PM [facility] REPOSITORY [facility] Imaging Services [address] [place] [address] Pelvic (Non ) MR#: [id number] Acct: [id number] Name: GHANSHYAM RIVERA Rep #: [id number] : 1940 F 77 From: Tres Rose MD PCP: Vicki Hall DO Status: REG CLI Study: Pelvic (Non ) Date of Exam: 07/18/17 Exam# [id number] Ordering Dr: Shira An MD STUDY: ULTRASOUND OF THE FEMALE PELVIS - COMPLETE REASON FOR EXAM: Female, 77 years old. Post-menopausal bleeding LMP: TECHNIQUE: Transabdominal TECHNICAL QUALITY: Adequate. [...] have an I.U.D. The right ovary is non-visualized. The left ovary is non-visualized. There is no fluid in the cul-de-sac. US/Pelvic (Non ) IMPRESSION: Normal female pelvis. Ovaries are nonvisualized. Electronically Signed: Tres Rose MD at 22:58 EST , Service support , CC: Shira An MD; Vicki Hall DO Information Technology Security Manager: Signed ALLERGIES ALLERGIES DATE TYPE / CODE NAME / CODE REACTION SEVERITY SOURCE 11/14/2017 Drug codeine/F006 Nause[address] Unknown [facility] Allergy/4160 476381([place] [address](SNOMED M) Repository CT) 11/14/2017 Drug gluten/F0060 Upset Stomach Unknown [facility] Allergy/4160 934[address]([place] [address](SNOMED ) Repository CT) ENCOUNTERS ENCOUNTERS ADMIT/DISCHARGE ACCOUNT NUMBER ADMITTING ENCOUNTER LOCATION SOURCE CLASS 06/17/2018 [id number] [facility] ding:MTLAB Repository 03/16/2018/03/16/20 [id number] Ambulatory BBuilding:[address] Repository 12/09/2017 [id number] Ambulatory [facility] ding:OPUS Repository 12/02/2017 [id number] Ambulatory [facility] ding:OPBI Repository 11/21/2017/11/22/19 [id number] Ambulatory [address] ding:SDC Repository 10/24/2017 [id number] Ambulatory [facility] ding:WOBLAB Repository 07/22/2017 [id number] [facility] ding:[facility] Repository 07/18/2017 [id number] Ambulatory [facility] ding:US Repository PAYERS PAYERS ENCOUNTER GUARANTOR PAYER SUBSCRIBER SOURCE 06/17/2018 JOSE ALFREDO Nichols [id number] Primary JOSE ALFREDO CLEMENS Insurance:MEDICAL TONNDOB: [facility] [id number] Hospital [address]Qdr: ([phone]) Number: Repository [phone] () [id number] Date:3996-37-47[place] [id number]: 06/17/2018 Secondary NOT GIVENUNK Lind Insurance:SELF PAY [facility] Number: Effective Repository Date:2018-06-17 03/16/2018 GHANSHYAM FRENCHOB: Primary JOSE ALFREDO MIXONNDOB: [facility] [id number] W Insurance:MEDICAL [id number] Number: [place], [place] [address]Emq: [phone] [id number]: () Date:2018-03-09 [phone] ()Tel: [phone]) Name:[facility] [id number] () [address] [place] [address]QY: 12/09/2017 Jose Alfredo Byrd38 Primary Jose Alfredo Clemens Insurance:MEDICAL TonnDOB: [facility] [id number] Hospital [address]Xlk: [phone]) Number: Repository [phone] () [id number] Date:9227-69-96[place]AM[place] [phone]: 12/09/2017 Secondary NOT GIVENUNK Lind Insurance:SELF PAY [facility] Number: Effective Repository Date:2017-12-05 12/02/2017 Jose Alfredo Nichols [id number] Primary Jose Alfredo Chaudhari Jayleen Insurance:MEDICAL TonnDOB: [facility] [id number] [place] [id number]: [phone]) Number: Repository [phone] () [id number] Date:8028-53-33JP [address] [place] [phone]: 12/02/2017 Secondary NOT GIVENUNK [place] Insurance:SELF PAY [facility] Number: Effective Repository Date:2017-11-19 11/21/2017 Jose Alfredo Byrd38 Primary Jose Alfredo Chaudhari [place] Insurance:MEDICAL TonnDOB: [facility] [id number] [address]Tel: [phone]) Number: Repository [phone] () [id number] Date:0732-11-99ZM [address] [place] [phone]: 11/21/2017 Secondary NOT GIVENUNK Lind Insurance:SELF PAY [facility] Number: Effective Repository Date:2017-10-28 10/24/2017 Jose Alfredo Mixonn238 Primary Jose Alfredo Chaudhari W Jayleen Insurance:MEDICAL TonnDOB: [facility] [id number] [place] [address]Tel: Number: Repository [phone] [id number] (HP) Date:0515-65-78NM [address] [address]DA: 10/24/2017 Secondary NOT GIVENUNK Fara Insurance:SELF PAY [facility] Number: Effective Repository Date:2017-10-24 07/22/2017 Jose Alfredo Mixonn238 Primary Jose Alfredo Chaudhari W Jayleen Insurance:MEDICAL TonnDOB: [facility] [id number] [place] [id number]: Number: Repository [phone] [id number] (HP) Date:6538-99-48HH [address] [place] [phone]: 07/22/2017 Secondary NOT GIVENUNK Fara Insurance:SELF PAY [facility] Number: Effective Repository Date:2017-07-22 07/18/2017 Jose Alfredo Nichols [id number] Primary Jose Alfredo Clemens Insurance:MEDICAL TonnDOB: [facility] [id number] Hospital [address]Lkg: Number: Repository [phone] [id number] () Date:1369-84-45QR [address], [place] [address]ZD: 07/18/2017 Secondary NOT GIVENUNK Fara Insurance:SELF PAY [facility] Number: Effective Repository Date:2017-07-18
== END ==
PROVIDERS: Family Provider Internal Medicine; PCP Internal Medicine; Referring Provider Internal Medicine Gastroenterology; Visit Provider Internal Medicine Gastroenterology
DX: R19.7 Diarrhea, unspecified (principal)
CPT/HCPCS: 36415; 82784; 83516; 86140; 86255

== ENCOUNTER → 2018-08-24 16:23 | Outpatient (CLI) | payer OTHER, SELFPAY ==
[2017-11-21 07:39] VITALS: BMI 52.4
[2018-08-24 17:27] LABS: Hemoglobin 13.9 g/dl (12.0-15.0); Mean Corp Hgb Conc 33.9 g/gl (32-36); Mean Corpuscular Hgb 31.5 pg (27.0-32.0); Platelet Count 244 K/mm3 (150-450); RBC Distribution Width CV 13.5 % (11.6-14.6); RBC Distribution Width SD 45.6 fl (35.1-43.9); Red Blood Count 4.41 M/mm3 (4.2-5.4); White Blood Count 6.1 K/mm3 (4.4-11.0)
[2018-08-24 17:28] LABS: Scan Indicated on CBC? Y/N NO
[2018-08-24 18:24] LABS: Progesterone Level 0.17 ng/mL (See Comment)
[2018-08-24 18:28] LABS: Estradiol < 11.0 pg/mL; Thyroid Stim Hormone (TSH) 0.54 uIU/mL (0.358-3.74)
== END ==
PROVIDERS: Visit Provider Obstetrics & Gynecology
DX: N95.0 Postmenopausal bleeding (principal)
CPT/HCPCS: 36415; 82670; 84144; 84403; 84443; 85027

== ENCOUNTER → 2018-11-27 | Outpatient (CLI) | payer OTHER, SELFPAY ==
--- NOTE | 2018-11-27 11:25 | US_ITS ---
STUDY: THYROID ULTRASOUND REASON FOR EXAM: Female, 78 years old. Thyromegaly TECHNIQUE: Ultrasound evaluation of the thyroid was performed with real-time and static garcia-scale imaging. COMPARISON: None. FINDINGS: RIGHT LOBE: The right lobe of the thyroid gland measures 3.8 x 1.1 x 1.3 cm. There is a heterogeneous echotexture. There are no demonstrated solid, cystic or complex lesions. LEFT LOBE: The left lobe of the thyroid gland measures 4.4 x 1.2 x 1.3 cm. There is a heterogeneous echotexture. There are no demonstrated solid, cystic or complex lesions. ISTHMUS: The isthmus measures 5 mm. There is a solid 4.7 mm nodule. . The regional lymph nodes are normal. US/Thyroid IMPRESSION: Thyroid gland is normal size. Mildly heterogeneous. Subcentimeter nodule in the isthmus. Electronically Signed: Migue Vázquez MD at 19:28 EDT , Service support ,
== END | disposition home or self-care (01) ==
LOC: US 11:23
PROVIDERS: Family Provider Internal Medicine; PCP Internal Medicine; Referring Provider Internal Medicine; Visit Provider Internal Medicine
DX: E01.0 Iodine-deficiency related diffuse (endemic) goiter (principal)
CPT/HCPCS: 76536

== ENCOUNTER → 2019-06-01 09:06 | Outpatient (CLI) | payer OTHER, SELFPAY ==
--- NOTE | 2019-06-01 09:10 | US_ITS ---
PROCEDURES: ULTRASOUND AORTA REASON FOR EXAM: Female, 79 years old. FAM HX AAA TECHNIQUE: Ultrasound evaluation of the aorta was performed with real-time and static garcia-scale imaging. COMPARISON: None. FINDINGS: There is no elongation or tortuosity of the abdominal aorta. Aorta measures: Proximal 2.0 cm. Middle 1.6 cm. Distal 1.4 cm. Aorta measure transversely: Proximal 2.0 cm. Middle 1.4 cm. Distal 1.3 cm. Right iliac artery measures: 1.2 cm. Right iliac artery measure transversely: 1.1 cm. Left iliac artery measures: 1.1 cm. Left iliac artery measure transversely: 1.1 cm. There is no demonstrated aneurysm.. US/Aorta IMPRESSION: No abdominal aortic aneurysm. Electronically Signed: Selvin Riddle MD (Brooks) at 16:08 EST , Service support ,
== END ==
PROVIDERS: Family Provider Internal Medicine; PCP Internal Medicine; Referring Provider Internal Medicine; Visit Provider Internal Medicine
DX: Z82.49 Family history of ischemic heart disease and other diseases of the circulatory system (principal)
CPT/HCPCS: 76775

== ENCOUNTER → 2021-10-17 | Outpatient (CLI) | payer MEDICARE, SELFPAY ==
--- NOTE | 2021-10-17 12:21 | BI_ITS ---
MAMMOGRAPHY - BILATERAL SCREENING REASON FOR EXAM: Female, 81 years old. Routine annual screening examination. PERTINENT HISTORY: Non-contributory. TECHNIQUE: Digital bilateral breast brandon (3D mammographic acquisition) in the CC and MLO projections. 2-D mediolateral oblique (MLO) and craniocaudad (CC) views of both breasts were obtained. CAD: Full Field Digital Mammography with Computer Added Detection was performed. COMPARISON: Comparison is made with prior study dated 12/02/2017 and 06/01/2014. FINDINGS: Breast Composition: There are scattered areas of fibroglandular density. The previously seen left retroareolar nodular density has decreased in size. It presently measures 4.8 mm x 5 mm. This was demonstrated to be a cyst on prior sonogram. Stable bilateral benign-appearing axillary lymph nodes. No other significant abnormalities are identified. BI/SCRN MAMM (CAD)W/BRANDON BILAT IMPRESSION: Stable bilateral screening mammogram. Yearly follow-up mammogram recommended. (A) ASSESSMENT CATEGORY: BIRADS Category 2: Benign. A letter regarding these results will be sent to the patient by the facility within 30 days. Approximately 10% of breast cancers are not detected by mammography. A normal mammogram should not delay biopsy of a clinically suspicious abnormality. [id number] Electronically Signed: Wayne Gutierres MD at 13:44 EDT ,
== END | disposition home or self-care (01) ==
LOC: OPBI 12:19
PROVIDERS: PCP Internal Medicine; Visit Provider Obstetrics & Gynecology Gynecology
DX: Z01.419 Encounter for gynecological examination (general) (routine) without abnormal findings (principal); Z12.31 Encounter for screening mammogram for malignant neoplasm of breast; N87.1 Moderate cervical dysplasia; Z13.820 Encounter for screening for osteoporosis
CPT/HCPCS: 77063; 77067

== ENCOUNTER → 2022-08-08 | Outpatient (CLI) | payer MEDICARE, OTHER, SELFPAY | END | disposition home or self-care (01) | PROVIDERS: PCP Internal Medicine; Visit Provider Internal Medicine | DX: Z12.31 Encounter for screening mammogram for malignant neoplasm of breast (principal); Z78.0 Asymptomatic menopausal state; I49.3 Ventricular premature depolarization | CPT/HCPCS: 93225; 93226 ==

== ENCOUNTER → 2022-10-22 | Outpatient (CLI) | payer MEDICARE, OTHER, SELFPAY ==
--- NOTE | 2022-10-22 10:15 | BI_ITS ---
MAMMOGRAPHY - BILATERAL SCREENING REASON FOR EXAM: Female, 82 years old. Routine annual screening examination. PERTINENT HISTORY: Non-contributory. TECHNIQUE: Digital bilateral breast brandon (3D mammographic acquisition) in the CC and MLO projections. 2-D mediolateral oblique (MLO) and craniocaudad (CC) views of both breasts were obtained. CAD: Full Field Digital Mammography with Computer Added Detection was performed. COMPARISON: Mammogram from 10/17/2021, 12/09/2017. Left breast ultrasound from 12/09/2017. FINDINGS: Breast Composition: There are scattered areas of fibroglandular density. There are no dominant masses or suspicious calcifications. There is a 0.8 cm round left retroareolar well-circumscribed mass that was previously characterized as a simple cyst on ultrasound from 12/09/2017 and is stable in size since 10/17/2021 when measured in similar dimension. Stable bilateral benign-appearing axillary lymph nodes. No other significant abnormalities are identified. There has been no significant change since the prior study. BI/SCRN MAMM (CAD)W/BRANDON BILAT IMPRESSION: Stable bilateral screening mammogram. Yearly follow-up mammogram recommended. (A) ASSESSMENT CATEGORY: BIRADS Category 2: Benign. A letter regarding these results will be sent to the patient by the facility within 30 days. Approximately 10% of breast cancers are not detected by mammography. A normal mammogram should not delay biopsy of a clinically suspicious abnormality. Electronically Signed: Patricio Alfaro MD at 15:47 EDT ,
--- NOTE | 2022-10-22 10:23 | BD_ITS ---
STUDY: DUAL ENERGY X-RAY ABSORPTIOMETRY / DXA REASON FOR EXAM: Female, 82 years old. [id number] TECHNIQUE: Bone Mineral Density (BMD) measurements of lumbar spine and bilateral hips were obtained. COMPARISON: Comparison is made with prior study dated May 23, 2010. FINDINGS: Lumbar Spine (L1-L4): g/cm2 (0.858) / T-score (-1.8) / Z-score (1.0) Findings are suggestive of osteopenia with a moderate fracture risk. Left Femur Total: g/cm2 (0.717) / T-score (-1.8) / Z-score (0.2) Left Femoral Neck: g/cm2 (0.628) / T-score (-2.0) / Z-score (0.3) Right Femur Total: g/cm2 (0.820) / T-score (-1.0) / Z-score (1.1) Right Femoral Neck: g/cm2 (0.637) / T-score (-1.9) / Z-score (0.4) The T-Scores on the most recent prior examination were: Lumbar Spine (L1-L4): There has been worsening of bone density since the previous examination. Left Femur Total: which represents a worsening of 12.6%. Right Femur Total: which represents a worsening of 7.7%. BD/Dexa Bone Density Study IMPRESSION: The patient is considered osteopenic as outlined below according to World Frank Organization (WHO) criteria with a moderate fracture risk. There has been worsening of bone density since the previous examination. Reference Information: The T-score is the number of standard deviations above or below the standard which is normal for young adults at their peak bone mineral density. The World Health Organization (WHO) interprets the T-scores as follows: Above -1 Normal bone density Between -1 and -2.5 Osteopenia Equal to / or below -2.5 Osteoporosis As a practical clinical guideline, osteopenia may be graded as follows: Mild -1 through -1.5 Moderate -1.6 through -2.0 Severe -2.1 through -2.4 The Z-score is the number of standard deviations above or below age-matched controls. A Z-score of less than -1.5 would be considered abnormal. References: 1. NIH Osteoporosis and Related Bone Diseases www osteo.org 2. International Society for Clinical Densitometry www iscd.org 3. National Osteoporosis Foundation www nof.org Electronically Signed: Wayne Gutierres MD at 10:43 EDT ,
== END | disposition home or self-care (01) ==
LOC: OPBD 10:14
PROVIDERS: PCP Internal Medicine; Referring Provider Internal Medicine; Visit Provider Internal Medicine
DX: Z12.31 Encounter for screening mammogram for malignant neoplasm of breast (principal); Z78.0 Asymptomatic menopausal state
CPT/HCPCS: 77063; 77067; 77080

== ENCOUNTER → 2023-03-07 | Outpatient (CLI) | payer MEDICARE, OTHER, SELFPAY ==
[2023-03-07 14:04] LABS: Absolute Lymphocyte Count 1.65 X10^3/uL (0.83-4.51); Absolute Neutrophil Count 4.5 X10^3/uL (2.0-7.7); Basophil# 0.04 X10^3/uL; Basophil% 0.6 % (0-1); Eosinophil# 0.11 X10^3/uL; Eosinophils% 1.6 % (0-5); Hematocrit 42.1 % (37-47); Hemoglobin 14.3 g/dL (12.0-15.0); Lymphocyte # 1.65 X10^3/ul (0.83-4.51); Lymphocyte % 23.8 % (19-41); Mean Corpuscular Hgb 31.9 pg (27.0-32.0); Mean Platelet Vol. 9.2 fl (6.2-12.0); Monocyte# 0.63 X10^3/uL; Monocyte% 9.1 % (0-10); NRBC Flagged by Analyzer 0 % (0-5); Neutrophil # 4.47 X10^3/uL (2.7-7.7); Neutrophil % 64.6 % (47-70); Platelet Count 243 K/mm3 (150-450); RBC Distribution Width CV 12.8 % (11.6-14.6); RBC Distribution Width SD 43.9 fl (35.1-43.9); Red Blood Count 4.48 M/mm3 (4.2-5.4); White Blood Count 6.9 K/mm3 (4.4-11.0)
[2023-03-07 14:20] LABS: ALB/GLOB Ratio 1.1 RATIO (0.9-2.4); AST(SGOT) 24 U/L (15-37); Alanine Aminotransfer ALT/SGPT 26 U/L (13-56); Albumin, Serum 3.8 g/dL (3.2-5.0); Alkaline Phosphatase 96 U/L (45-117); Anion Gap 2 (5-15); BUN 11 mg/dL (7-18); BUN/Creat Ratio 12.7 RATIO (10-20); Calcium,Total 8.6 mg/dL (8.5-10.1); Chloride 107 mmol/L (98-107); Creatinine, Serum 0.87 mg/dL (0.55-1.02); EST Glomerular Filtration Rate 67 mL/min (>60); Est Glom Filt Rate - Afr Amer 81 mL/min (>60); Globulin 3.4 g/dL (2.2-4.2); Glucose 87 mg/dL (74-106); Potassium 3.3 mmol/L (3.5-5.1); Protein, Total 7.2 g/dL (6.4-8.2); Sodium Level 141 mmol/L (136-145); Troponin-I HS 6 pg/mL (3.0-54.0)
== END | disposition home or self-care (01) ==
LOC: LABSPEC 13:55
PROVIDERS: PCP Internal Medicine; Referring Provider Internal Medicine; Visit Provider Internal Medicine
DX: R07.89 Other chest pain (principal)
CPT/HCPCS: 80053; 84484; 85025

== ENCOUNTER 2023-12-14 17:04 | Emergency (ER) | payer MEDICARE, OTHER, SELFPAY ==
[2023-12-14 17:05] VITALS: BP 103/69; PULSE 98; RESP 18; TEMP 35.9; O2SAT 91; BMI 20.5
--- NOTE | 2023-12-14 17:18 | EX.ED.DYSGE1 ---
HPI History of Present Illness Chief Complaint: Bite Informant: patient Onset/Context/Timing Onset: Today Context: Sudden Onset Timing: Continuous Quality: Stabbing, burning Location: Bilateral lower legs, right arm, and face Worsened by: Nothing Relieved by: Time Narrative Narrative: Patient presents with near syncopal episode that occurred today. Patient was stung multiple times by insects. Son states that patient collapsed and was confused for approximately 3 minutes. Son denies any complete loss of consciousness. Patient and son states they were working outside in the yard for several hours prior to this. Patient denies any chest pain or palpitations. Patient denies any shortness of breath or cough. Patient denies any nausea or vomiting. Patient denies any headaches. [facility] Medical History (Updated 12/14/23 @ 20:[address] Juan Ramon Simpson DO) Hypothyroidism Primary osteoarthritis, left shoulder Left shoulder pain Home Medications ?Medication ?Instructions ?Recorded ?Last Taken ?Type cholecalciferol (vitamin D3) 125 5,000 unit PO DAILY 11/14/17 Unknown History mcg (5,000 unit) capsule coenzyme Q10 50 mg chewable tablet 50 mg PO DAILY 11/14/17 Unknown History hydrocodone 5 mg-acetaminophen 300 1 - 2 tab PO Q4H PRN PRN Pain 11/14/17 Unknown History mg tablet (Vicodin) magnesium 250 mg tablet 250 mg PO DAILY 11/14/17 Unknown History vitamin E 268 mg (400 unit) capsule 400 unit PO DAILY 11/14/17 Unknown History levothyroxine 75 mcg tablet 50 mcg PO DAILY 11/21/23 Unknown History prednisone 20 mg tablet 60 mg (3 x 20 mg) PO DAILY #15 12/14/23 Unknown Rx TABLETS Allergy/AdvReac Type Severity Reaction Status Date / Time codeine AdvReac Nausea Verified 12/14/23 17:05 gluten AdvReac Upset Verified 12/14/23 17:05 Stomach Surgical History (Updated 12/14/23 @ 17:[address] Juan Ramon Simpson DO) Hx of cataract surgery Social History Smoking Status: Never smoker ROS ROS ED Constitutional Constitutional ED: Denies chills or fever(s) Eyes Eyes: Denies blurry vision or change in vision ENT ENT ED: Denies rhinorrhea or sore throat Cardiovascular Cardiovascular: Denies chest pain or palpitations Respiratory/Chest Respiratory/Chest: Denies cough or dyspnea Gastrointestinal Gastrointestinal: Denies nausea or vomiting Genitourinary Genitourinary ED: Denies dysuria or hematuria Musculoskeletal Musculoskeletal: Denies back pain or neck pain Integumentary Denies abscess or rash Neurologic Neurologic: Denies headache(s) or weakness Allergic/Immunologic Allergic/Immunologic ED: Denies mouth swelling or urticaria EXAM Physical Exam Const Vital Signs: 12/14/23 17:05 12/14/23 17:34 Temperature 96.6 F L Temperature Source Temporal Pulse Rate 98 Pulse Rate [Lying] 69 Pulse Rate [Sitting (for 1 minute prior to obtaining)] 80 Pulse Rate [Standing (for 1 minute prior to obtaining)] 88 Respiratory Rate 18 Blood Pressure 103/69 Blood Pressure [Lying] 115/66 Blood Pressure [Sitting (for 1 minute prior to obtaining)] 121/77 H Blood Pressure [Standing (for 1 minute prior to obtaining)] 132/66 H Blood Pressure Mean 80 Blood Pressure Mean [Lying] 82 Blood Pressure Mean [Sitting (for 1 minute prior to obtaining)] 91 Blood Pressure Mean [Standing (for 1 minute prior to obtaining)] 88 Pulse Ox 91 Oxygen Delivery Method Room Air Positive well nourished and well developed General Appearance ED: well developed and NAD HEENT Reports moist mucous membranes Neck supple and no JVD Resp normal respiratory effort and clear to auscultation bilaterally Cardio regular rate and regular rhythm GI non-tender and non-distended Palpation: soft Extremity normal to inspection Extremity Narrative: There are insect stings with local reactions to the bilateral lower legs, right forearm and wrist, and right side of her face. There is some mild erythema around the sting sites. There is no evidence of any abscess. Neuro oriented x3, CN's II-XII intact bilaterally and no sensory deficits noted Sensorium / Orientation: alert Motor Exam: strength 5/5 throughout MDM MDM MDM Narrative Medical decision making narrative: Differential diagnosis includes vasovagal reaction, dehydration, electrolyte abnormality, cardiac dysrhythmia, cardiac ischemia, and near syncope. EKG will be obtained to assess for cardiac dysrhythmia and cardiac ischemia. CBC will be obtained to assess for leukocytosis and anemia. Basic metabolic profile will be obtained to assess for electrolyte abnormality and renal function. High-sensitivity troponin will be obtained to assess for cardiac ischemia. Lab Data Attestation: I reviewed the patient's lab results. Lab results narrative: CBC was reviewed and was within normal limits. Basic metabolic profile was reviewed and was within normal limits. High-sensitivity troponin was reviewed and was normal at 5. Labs: Laboratory Results - last 24 hr 12/14/23 17:44 WBC 6.0 RBC 4.49 Hgb 14.0 Hct 42.4 MCV 94.4 MCH 31.2 MCHC 33.0 RDW Std Deviation 44.5 H RDW Coeff of Sue 12.9 Plt Count 256 MPV 9.1 Immature Gran % (Auto) 0.300 Neut % (Auto) 50.4 Lymph % (Auto) 36.2 Coffee % (Auto) 10.0 Eos % (Auto) 2.8 Baso % (Auto) 0.3 Absolute Neuts (auto) 3.0 Absolute Lymphs (auto) 2.17 Nucleated RBC % 0 Sodium 137 Potassium 3.5 Chloride 105 Carbon Dioxide 25.0 Anion Gap 7 BUN 15 Creatinine 1.04 H Estim Creat Clear Calc 36.45 Est GFR (MDRD) Af Amer 65 Est GFR (MDRD) Non-Af 54 L BUN/Creatinine Ratio 14.4 Glucose 195 H Calcium 8.6 Troponin I High Sens 5 EKG Initial EKG: Attestation: I personally reviewed and interpreted this EKG as follows: Interpretation: Sinus Rhythm (With frequent PVCs with a rate of 77) and No Acute Injury Pattern Comments: EKG was obtained. On my independent interpretation, it showed a normal sinus rhythm with frequent PVCs with a rate of 77. HI interval, QRS interval, and QTc intervals were all normal. Red[place] was normal. There are no acute ST or T wave changes. Prior EKG tracings: not available for review Prior: No Prior Follow-up EKG: Attestation: I personally reviewed and interpreted this EKG as follows: Interpretation: Sinus Rhythm (With frequent PVCs with a rate of 88) and No Acute Injury Pattern Comments: EKG was obtained. On my independent interpretation, it showed a normal sinus rhythm with frequent PVCs with a rate of 88. HI interval, QRS interval, and QTc intervals were all normal. Redmond was normal. There are no acute ST or T wave changes. Prior EKG tracings: available for review Prior: Unchanged Treatment and Re-Evaluation :: Patient was given IV fluids. Patient began complaining of redness and swelling to her right arm and back and chest. On reexamination, this appeared to be urticarial in nature. There are no vesicles or pustules. There are no petechia noted. Patient was given Solu-Medrol and Benadryl. Patient then notified nursing staff that she felt like her throat was getting tight and she was having a persistent cough. On reevaluation, there is no oropharyngeal edema however patient stated that her tightness felt lower in her throat. Patient was given an EpiPen injection. Patient was feeling better after this. Patient was observed in the emergency department for 2 hours after this. Patient was feeling much better and wanted to go home. Patient was given a prescription for prednisone. Patient was instructed to follow-up with her primary care physician in 5 to 7 days. Patient understood and was agreeable with the plan. All questions were answered. Discharge Plan Triage Chief Complaint: Bite ED Provider: Juan Ramon Simpson Dx/Rx/DC Orders Clinical Impression: Systemic reaction to hymenoptera sting, Near syncope, Hypothyroidism Instructions: ED BEE STING General Allergic Rxn, ED Near-Fainting, Uncertain Cause Prescriptions: New prednisone 20 mg tablet 60 mg PO DAILY Qty: 15 0RF No Action magnesium 250 MG tablet 250 mg PO DAILY cholecalciferol (vitamin D3) 5,000 UNIT capsule 5,000 unit PO DAILY vitamin E 400 UNIT capsule 400 unit PO DAILY hydrocodone-acetaminophen [Vicodin] 1 EACH tablet 1 - 2 tab PO Q4H PRN PRN (Reason: Pain) coenzyme Q10 50 MG tablet,chewable 50 mg PO DAILY levothyroxine 75 mcg tablet 50 mcg PO DAILY Primary Care Provider: Vicki Hall Referrals: Vicki Hall DO [Primary Care Provider] - 5-7 Days Print Language: Macedonian Disposition Disposition: Home, Self Care
--- NOTE | 2023-12-14 17:24 | EKG12_ITS ---
Test Reason : Blood Pressure : / mmHG Vent. Rate : 077 BPM Atrial Rate : 077 BPM P-R Int : 164 ms QRS Dur : 072 ms QT Int : 396 ms P-R-T Axes : 041 015 052 degrees QTc Int : 448 ms Sinus rhythm with frequent Premature ventricular complexes Low voltage QRS Borderline ECG Confirmed by SAMANTHA STEWART, TALIA ([id number]), supervising editor news reel ROLY STEPHENSON ([id number]) on 12/17/2023 9:50:45 AM Referred By: Confirmed By:DIONICIO SINGH MD
--- NOTE | 2023-12-14 17:30 | NURSING ---
NO OLD EKGS
[2023-12-14 17:34] VITALS: BP 115/66; BP 121/77; BP 132/66; PULSE 69; PULSE 80; PULSE 88
[2023-12-14] MEDS: 0.9% Normal Saline (500mL Bag) 500 ML 1000 ML IV (17:43)
[2023-12-14 17:54] LABS: Absolute Lymphocyte Count 2.17 X10^3/uL (0.83-4.51); Basophil# 0.02 X10^3/uL; Basophil% 0.3 % (0-1); Eosinophil# 0.17 X10^3/uL; Eosinophils% 2.8 % (0-5); Hematocrit 42.4 % (37-47); Lymphocyte # 2.17 X10^3/ul (0.83-4.51); Lymphocyte % 36.2 % (19-41); Mean Corpuscular Hgb 31.2 pg (27.0-32.0); Mean Corpuscular Volume 94.4 fL (81-99); Mean Platelet Vol. 9.1 fl (6.2-12.0); NRBC Flagged by Analyzer 0 % (0-5); Neutrophil # 3.02 X10^3/uL (2.7-7.7); Neutrophil % 50.4 % (47-70); Platelet Count 256 K/mm3 (150-450); RBC Distribution Width CV 12.9 % (11.6-14.6); RBC Distribution Width SD 44.5 fl (35.1-43.9); Red Blood Count 4.49 M/mm3 (4.2-5.4)
[2023-12-14] MEDS: MethylPREDNISolone 125 MG/2 ML Vial 60 MG IV (18:13)
[2023-12-14] MEDS: DiphenhydrAMINE 50 MG/ML Syringe 25 MG IV (18:13)
[2023-12-14 18:19] LABS: Anion Gap 7 (5-15); BUN 15 mg/dL (7-18); BUN/Creat Ratio 14.4 RATIO (10-20); Calcium,Total 8.6 mg/dL (8.5-10.1); Chloride 105 mmol/L (98-107); Creatinine, Serum 1.04 mg/dL (0.55-1.02); EST Glomerular Filtration Rate 54 mL/min (>60); Est Glom Filt Rate - Afr Amer 65 mL/min (>60); Estimated Creatinine Clearance 36.45 ml/min; Glucose 195 mg/dL (74-106); Potassium 3.5 mmol/L (3.5-5.1); Sodium Level 137 mmol/L (136-145); Troponin-I HS 5 pg/mL (3.0-54.0)
[2023-12-14] MEDS: Epi Pen (EQUIV) 0.3 MG Syringe IM (18:44)
[2023-12-14 20:39] VITALS: BP 135/73; PULSE 79; RESP 97; TEMP 36.9; O2SAT 97
== END 2023-12-14 20:41 | disposition home or self-care (01) ==
PROVIDERS: Emergency Provider Emergency Medicine; PCP Internal Medicine; Visit Provider Emergency Medicine
DX: R55 Syncope and collapse (principal); T63.441A Toxic effect of venom of bees, accidental (unintentional), initial encounter; E03.9 Hypothyroidism, unspecified; Z79.899 Other long term (current) drug therapy
CPT/HCPCS: 80048; 84484; 85025; 93005; 96361; 96374; 96375; 99285; J7040; A4216

== ENCOUNTER → 2024-04-13 | Outpatient (CLI) | payer MEDICARE, OTHER, SELFPAY ==
--- NOTE | 2024-04-13 12:44 | BI_ITS ---
MAMMOGRAPHY - BILATERAL SCREENING REASON FOR EXAM: Female, 84 years old. Routine annual screening examination. PERTINENT HISTORY: Non-contributory. TECHNIQUE: Digital bilateral breast brandon (3D mammographic acquisition) in the CC and MLO projections. 2-D mediolateral oblique (MLO) and craniocaudad (CC) views of both breasts were obtained. CAD: Full Field Digital Mammography with Computer Added Detection was performed. COMPARISON: Comparison is made with prior study dated October 22, 2022 and October 17, 2021. FINDINGS: Breast Composition: There are scattered areas of fibroglandular density. There are no dominant masses or suspicious calcifications. Stable 5.3 mm x 4.3 mm well-defined nodule in the retroareolar region of the left breast. This was demonstrated to be a small cyst on prior sonogram. Stable bilateral fat-containing axillary lymph nodes. No other significant abnormalities are identified. There has been no significant change since the prior study. BI/SCRN MAMM (CAD)W/BRANDON BILAT IMPRESSION: Stable bilateral screening mammogram. Yearly follow-up mammogram recommended. (A) ASSESSMENT CATEGORY: BIRADS Category 2: Benign. A letter regarding these results will be sent to the patient by the facility within 30 days. Approximately 10% of breast cancers are not detected by mammography. A normal mammogram should not delay biopsy of a clinically suspicious abnormality. [id number] Electronically Signed: Wayne Gutierres MD at 13:49 EST ,
== END | disposition home or self-care (01) ==
LOC: OPBI 12:41
PROVIDERS: PCP Internal Medicine; Referring Provider Obstetrics & Gynecology Gynecology; Visit Provider Obstetrics & Gynecology Gynecology
DX: Z12.31 Encounter for screening mammogram for malignant neoplasm of breast (principal)
CPT/HCPCS: 77063; 77067

== ENCOUNTER → 2024-06-14 | Outpatient (CLI) | payer MEDICARE, OTHER, SELFPAY ==
--- NOTE | 2024-06-14 16:42 | US_ITS ---
INDICATION: CERVICAL STENOSIS EXAMINATION: Ultrasound US Pelvis Non OB Complete With Transvaginal Imaging TECHNIQUE: Transabdominal and transvaginal pelvic ultrasound was performed. Grayscale, spectral waveform, and color flow Doppler evaluation of the adnexa. COMPARISON: None. FINDINGS: UTERUS: Anteverted. The uterus measures 5.8 x 3.3 x 2.2 cm. There is no uterine mass. The endometrial stripe measures 6.4 mm, and a small amount of fluid is present in the endometrial cavity estimated approximately 2.5 mm in fluid depth. Cervix has normal sonographic appearance. RIGHT OVARY: 1.8 x 1.5 x 1.0 cm. Non-enlarged, normal echogenicity. There is normal arterial inflow and venous outflow present in the right ovary. LEFT OVARY: 2.4 x 1.8 x 0.9 cm.. Non-enlarged, normal echogenicity. There is normal arterial inflow and venous outflow present in the left ovary. FREE FLUID: None. BLADDER: Bladder has normal configuration with estimated volume of 22.35 mL. US/Pelvic w/ Transvaginal IMPRESSION: 1. Moderate amount of fluid within the endometrial cavity. Endometrium estimated at 6.4 mm. No abnormal blood flow. 2. The cervix has normal sonographic appearance however cervical stenosis is suspected. 3. Normal sonographic appearance of both ovaries. 4. No free fluid.. Electronically Signed: Darrion Kat MD at 22:44 EST ,
== END | disposition home or self-care (01) ==
LOC: US 16:40
PROVIDERS: PCP Internal Medicine; Referring Provider Obstetrics & Gynecology Gynecology; Visit Provider Obstetrics & Gynecology Gynecology
DX: N81.3 Complete uterovaginal prolapse (principal); N95.0 Postmenopausal bleeding

== ENCOUNTER → 2025-03-23 | Outpatient (CLI) | payer MEDICARE, OTHER, SELFPAY ==
--- NOTE | 2025-03-23 14:09 | US_ITS ---
PROCEDURE: PELVIC W/ TRANSVAGINAL 03/23/2025 REASON FOR EXAM: FLUID SEEN IN ENDOMETRIUM BEFORE THIN STRIP FU TECHNIQUE: Procedure Code: USPELTVAG Modality: US Procedure: PELVIC W/ TRANSVAGINAL COMPARISON: None FINDINGS: Uterus measures 5.8 x 4.6 x 2.8 cm. It is anteverted position. No fibroids are noted. Endometrial thickness 2 mm. 5 mm fluid is noted within the endometrium. Cervix is within normal limits. No IUD is noted. Right ovary measures 1.8 x 1.6 x 0.4 cm and left ovary measures 2.2 x 2.4 x 1.9 cm. There is symmetrical normal blood flow within bilateral ovaries. No significant free fluid is noted within the cul-de-sac. US/Pelvic w/ Transvaginal IMPRESSION: Nonspecific 5 mm fluid noted within the endometrium. Otherwise unremarkable ex am. Reading Location: [id number]
--- NOTE | 2025-03-23 14:09 | US_ITS ---
PROCEDURE: PELVIC W/ TRANSVAGINAL 03/23/2025 REASON FOR EXAM: FLUID SEEN IN ENDOMETRIUM BEFORE THIN STRIP FU TECHNIQUE: Procedure Code: [id number] Modality: US Procedure: PELVIC W/ TRANSVAGINAL COMPARISON: None FINDINGS: Uterus measures 5.8 x 4.6 x 2.8 cm. It is anteverted position. No fibroids are noted. Endometrial thickness 2 mm. 5 mm fluid is noted within the endometrium. Cervix is within normal limits. No IUD is noted. Right ovary measures 1.8 x 1.6 x 0.4 cm and left ovary measures 2.2 x 2.4 x 1.9 cm. There is symmetrical normal blood flow within bilateral ovaries. No significant free fluid is noted within the cul-de-sac. US/Pelvic w/ Transvaginal IMPRESSION: Nonspecific 5 mm fluid noted within the endometrium. Otherwise unremarkable ex am. Reading Location: [id number]
== END | disposition home or self-care (01) ==
LOC: US 14:07
PROVIDERS: PCP Internal Medicine; Referring Provider Obstetrics & Gynecology Gynecology; Visit Provider Obstetrics & Gynecology Gynecology
DX: N88.2 Stricture and stenosis of cervix uteri (principal); N95.0 Postmenopausal bleeding
CPT/HCPCS: 76830; 76856

== ENCOUNTER → 2025-04-14 | Outpatient (CLI) | payer MEDICARE, OTHER, SELFPAY ==
--- NOTE | 2025-04-14 12:49 | BD_ITS ---
PROCEDURE: DEXA BONE DENSITY STUDY 04/14/2025 REASON FOR EXAM: F, age 85 y/o . Postmenopausal. TECHNIQUE: Procedure Code: BDDBD Modality: DX Procedure: DEXA BONE DENSITY STUDY COMPARISON: May 23, 2010. FINDINGS: BMD and T-SCORES Lumbar spine: 0.881 g/cm2, T-score -1.5 Levels: L1 through L4 Change from prior: Loss of 0.1%. Left femoral neck: 0.517 g/cm2, T-score -3.0 Femoral neck comparison data not recommended for monitoring change. Left total hip: 0.662 g/cm2, T-score -2.3 Change from prior: Loss of 7.7%. Right femoral neck: 0.576 g/cm2, T-score -2.5 Femoral neck comparison data not recommended for monitoring change. Right total hip: 0.734 g/cm2, T-score -1.7 Change from prior: Loss of 10.5%. The World Health Organization has defined the following categories based on bone density: Normal bone density: T-score equal to or greater than -1.0 Osteopenia: T-score between -1.0 and -2.5 Osteoporosis: T-score equal to or less than -2.5 FRAX (or Comparable) Fracture Risk Assessment: 10 Year Probability of Fracture: Major Osteoporotic Fracture: 19% Hip Fracture: 7.8% (Note: FRAX is not to be reported in setting of normal range bone density, osteoporosis on DEXA, known history of osteoporosis, prior osteoporotic hip or vertebral fracture, or for any patient undergoing pharmacological treatment for bone loss.) The National Osteoporosis Foundation (NOF) recommends pharmacological treatment for patients with a FRAX 10-year risk of 3% or higher for a hip fracture, or 20% or higher for a major osteoporotic fracture, to prevent osteoporosis and reduce fracture risk. The patient does meet the pharmacological treatment recommendations for prevention of osteoporosis. BD/Dexa Bone Density Study IMPRESSION: OSTEOPOROSIS. Recommend follow-up as clinically warranted. Reading Location: [place] [id number]
--- NOTE | 2025-04-14 13:30 | BI_ITS ---
EXAM: SCRN MAMM (CAD)W/BRANDON BILAT DATE: 04/14/2025 CLINICAL HISTORY: F, Age 85 y/o , SCREENING No family history. TECHNIQUE: Procedure Code: [id number] Modality: MG Procedure: SCRN MAMM (CAD)W/BRANDON BILAT COMPARISON: Prior exam(s) dated April 13, 2024.. FINDINGS: TISSUE DENSITY: There are scattered areas of fibroglandular density. Bilateral Breast Mammographic Findings: No significant masses, calcifications or other abnormalities are identified. The previously seen 8 mm well-defined nodule in the retroareolar region of the left breast is not seen at this time. No suspicious masses, areas of developing architectural distortion, or suspicious calcifications. There has been no significant interval change. BI/SCRN MAMM (CAD)W/BRANDON BILAT IMPRESSION: Unremarkable screening bilateral mammogram. OVERALL FINAL ASSESSMENT BI-RADS 2: BENIGN RECOMMENDATION: Routine annual follow-up in 1 Year Additional Recommendation none A letter with findings and recommendations will be mailed to the patient. Reading Location: [place] [address]
== END | disposition home or self-care (01) ==
LOC: OPBD 12:48
PROVIDERS: PCP Internal Medicine; Referring Provider Internal Medicine; Visit Provider Internal Medicine
DX: Z12.31 Encounter for screening mammogram for malignant neoplasm of breast (principal); Z78.0 Asymptomatic menopausal state
CPT/HCPCS: 77063; 77067; 77080